=== PATIENT | female | born 1945 | race Caucasian/White ===

== ENCOUNTER → 2018-05-29 12:12 | Outpatient (CLI) | payer MEDICARE, SELFPAY ==
[2018-05-29 13:27] LABS: Free T3, Triiodothyronine Free 2.85 pg/mL (2.77-5.27)
== END ==
PROVIDERS: PCP Internal Medicine; Visit Provider Internal Medicine
DX: E03.9 Hypothyroidism, unspecified (principal)
CPT/HCPCS: 36415; 84481

== ENCOUNTER 2019-02-05 09:34 | Outpatient (CLI) | payer MEDICARE, SELFPAY ==
[2019-02-05] VITALS (8 sets, daily range): BP systolic 100–127; BP diastolic 65–83; PULSE 62–87; RESP 16–18; TEMP 36.7; O2SAT 94–97
--- NOTE | 2019-02-05 09:36 | DI.RAD.S_ITS ---
PROCEDURE: PAIN C/T TRANFORAMINAL INJECT INDICATIONS: SPINAL STENOSIS FINDINGS: 4 intraoperative fluoroscopic spot filming was performed to verify placement of spinal needles at the left C6-C7 level(s), as labeled on the films. Appropriate location(s) of the needle tip(s) was confirmed by injection of iodinated contrast. IMPRESSION: Fluoroscopy support for pain management. Dictated by: Yen Hood M.D. on 02/05/2019 at 11:45 Approved by: Yen Hood M.D. on 02/05/2019 at 11:46
[2019-02-05] MEDS: fentaNYL 100 MCG/2 ML INJ 50 MCG IV (10:45)
[2019-02-05] MEDS: MIDAZOLAM 5 MG/5 ML VIAL IV (10:45)
[2019-02-05] MEDS: IOPAMIDOL 15 ML VIAL 3 ML INJ (10:59)
[2019-02-05] MEDS: DEXAMETHASONE 10 MG/ML VIAL 30 MG INJ (11:00)
[2019-02-05] MEDS: LIDOCAINE 1% 20 ML INJ 5 ML INJ (11:00)
--- NOTE | 2019-02-05 11:03 | PC.NURSE ---
Pt tolerated procedure well. Able to get off table with standby assist. Transferred pt via wheelchair awake and alert to pre procedure room for continued monitoring with Lety SCHAFFER.
--- NOTE | 2019-02-05 11:07 | PM.PROC.1 ---
Procedures Date/Time Date of procedure: 02/05/19 Time of procedure: 11:07 General Procedure description: PREOP DIAGNOSIS 1. CERVICAL STENOSIS, 2. CERVICAL HNP WITH UPPER EXTREMITY RADICULAR FEATURES, POST OP DIAGNOSIS 1. CERVICAL STENOSIS, 2. CERVICAL HNP WITH UPPER EXTREMITY RADICULAR FEATURES, PROCEDURES 1. FLUORSCOPICALLY GUIDED CONTRAST CONTROLLED INTERLAMINAR EPIDURAL STEROID INJECTION - C6/7 TL ANNE PHYSICIAN: DO MOE Osuna Blanca is referred by Ankit for treatment of Cervical HNPs with Left Upper Extremity Paresthesias. FINDINGS Cervical Stenosis due to disc deterioration and nerve root irritation and nerve root irritation DESCRIPTION OF PROCEDURE Fluoroscopically guided, contrast-controlled C6/7 translaminar epidural steroid injection with conscious sedation. Following review of allergy and review of potential side effects and complications, including, but not necessarily limited to, infection, allergic reaction, local tissue breakdown, temporary as well as permanent nerve injury, stroke, paralysis, and possible , the patient indicated that patient understood and agreed to proceed. An informed consent document was signed by the patient, witnessed by a nurse, and placed in the patient's chart. Additionally, other treatment options including modalities, medications, and physical therapy were reviewed with the patient. After review of previous anaesthesic history and IV conscious sedation the patient was deemed safe to proceed with todays procedure with IV conscious sedation as ASA class II designation. Safety time-out was performed to confirm patient ID, procedure to be performed and site of procedure. IV sedation was accomplished with a combination of 3mg of Versed and 50mcg of Fentanyl administered by the RN after DO order, titrated to patient comfort during the course of the procedure while the patient remained responsive to all verbal commands. In the prone position, following sterile prep and drape of the cervical region, the C6/7 translaminar space was identified fluoroscopically. The skin was anesthetized via a 25-gauge 1.5-inch needle with 1% lidocaine solution. At this point, a 25-gauge, 2.5-inch short bevel spinal needle was atraumatically introduced and advanced under fluoroscopic guidance into epidural space at the C6/7 translaminar space. Depth was confirmed on lateral view. Radiological data, including multiple fluoroscopic views of the cervical spine, reveal a spinal needle at the C6/7 translaminar space. Lateral views then show placement of the needle in the epidural space. Subsequent views show contrast material flowing superiorly and inferiorly in the epidural space. DSA fluoroscopy with live contrast injection, once again, confirmed no vascular or intrathecal uptake. At this point, using loss of resistance technique with saline and air, the epidural space was entered. Following negative aspiration, injection of approximately 1.5 cc of Isovue-200 with live fluoroscopy in the AP view confirmed epidural flow in the epidural space without vascular or intrathecal uptake observed. Subsequently, a test dose of 1 cc of 1% lidocaine solution was injected and patient was observed for two minutes without signs or symptoms of complications, including abdominal pain, shortness of breath, bilateral upper or lower extremity weakness, nausea and vomiting, prior to steroid injection. At this point, 3cc or 30mg of dexamethasone was then injected without incident. The patient tolerated the procedure well without signs or symptoms of complications prior to being transferred to the recovery area for further monitoring, The patient was then transferred to the recovery area where they were observed for an appropriate period of time after the injection. The patient reported a VAS score of 6 prior to the procedure and a post-procedure VAS of 0. Total Fluoroscopy Time: 37.0 seconds Total Conscious Time: 24min POST OP INSTRUCTIONS The patient was provided a Pain Log to continue to record their response to the target-specific procedure prior to follow-up visit with the referring provider. Additionally, specific post-injection care instructions and a contact number to our office were provided if concerns arise regarding possible complications associated with the procedure are suspected. Zacarias Corado DO Complications: none
== END 2019-02-05 12:02 | disposition home or self-care (01) ==
LOC: RAD 09:35
PROVIDERS: PCP Internal Medicine; Visit Provider Physical Medicine & Rehabilitation
DX: M48.02 Spinal stenosis, cervical region (principal); M50.123 Cervical disc disorder at C6-C7 level with radiculopathy; R20.2 Paresthesia of skin
CPT/HCPCS: 64479; 99152; J1100; J2250; J3010

== ENCOUNTER 2019-05-28 09:39 | Inpatient (IN) | payer MEDICARE, SELFPAY ==
[2019-05-28] VITALS (14 sets, daily range): BP systolic 101–134; BP diastolic 45–72; PULSE 81–104; RESP 14–20; TEMP 36.6–37.6; O2SAT 88–96; BMI 33.3
--- NOTE | 2019-05-28 10:21 | ED_ITS ---
HPI - Abdominal Pain General Chief Complaint: Abdominal Pain Stated Complaint: think she has Appendicitis Time Seen by Provider: 05/28/19 09:43 Source: patient Mode of arrival: Ambulatory Limitations: no limitations History of Present Illness HPI narrative: Patient comes emergency department complaining of right-sided abdominal pain for the last 3 days. She also complains nausea and vomiting. Patient states she has not had much of an appetite. She states that she initially had pain in her left shoulder, but now, she feels in her right lower quadrant. She denies any dysuria or hematuria. No back pain. no diarrhea or constipation. Patient states she is otherwise healthy as far she knows, though she does take medications for hypertension, chronic back pain, and depression. Patient states she had a fever at home of 101, though she was afebrile here. No other complaints at this time. Related Data Home Medications Medication Instructions Recorded Confirmed levothyroxine 25 mcg tablet 25 mcg PO DAILY 07/22/18 05/28/19 amlodipine 5 mg tablet 5 mg PO DAILY #90 tab 03/24/19 05/28/19 duloxetine 60 mg capsule,delayed 60 mg PO DAILY cap 03/24/19 05/28/19 release furosemide 40 mg tablet 40 mg PO DAILY #90 tab 03/24/19 05/28/19 simvastatin 20 mg tablet 20 mg PO BEDTIME #90 tab 03/24/19 05/28/19 gabapentin 300 mg capsule 600 mg PO BEDTIME cap 05/22/19 05/28/19 amitriptyline 50 mg PO BEDTIME 05/28/19 05/28/19 temazepam 15 mg PO BEDTIME PRN 05/28/19 05/28/19 Allergies Allergy/AdvReac Type Severity Reaction Status Date / Time sumatriptan [From IMITREX] Allergy Severe FACIAL Verified 05/22/19 15:45 SWELLING, RASH propoxyphene [From DARVON] Allergy Intermediate NOT ABLE Verified 05/22/19 15:45 TO MOVE WELL AND FUNCTION codeine [CODEINE] AdvReac Mild NAUSEA Verified 05/22/19 15:45 oxycodone [OXYCODONE] AdvReac Mild NAUSEA Verified 05/22/19 15:45 sertraline [SERTRALINE] AdvReac Mild Verified 05/22/19 15:45 Review of Systems Constitutional Constitutional: Denies chills, Denies fatigue, Denies fever(s), Denies frequent falls, Denies lethargy and Denies weakness Eyes Eyes: Denies change in vision, Denies eye discharge, Denies irritation and Denies loss of vision ENT Ears, Nose, Mouth, and Throat: Denies change in voice, Denies dizziness, Denies neck pain, Denies sore throat and Denies throat swelling Cardiovascular Cardiovascular: Denies chest pain, Denies irregular heart rhythm, Denies lightheadedness, Denies palpitations, Denies dyspnea, Denies dyspnea on exertion and Denies orthopnea Respiratory Respiratory: Denies cough, Denies dyspnea, Denies dyspnea on exertion and Denies wheezing Gastrointestinal Gastrointestinal: Reports abdominal pain, Denies change in bowel habits, Denies diarrhea, Reports nausea and Reports vomiting Comments: Decreased appetite Genitourinary Genitourinary: Denies hematuria, Denies flank pain, Denies urinary incontinence and Denies urinary urgency Musculoskeletal Musculoskeletal: Denies back pain, Denies muscle weakness, Denies neck pain, Denies numbness and Denies tingling Integumentary/Breasts Skin/Breast: Denies pruritus, Denies erythema, Denies rash and Denies wounds Neurologic Neurologic: Denies behavioral changes, Denies confusion, Denies dizziness, Denies frequent falls, Denies loss of vision, Denies numbness, Denies tingling and Denies weakness Psychiatric Psychiatric: Denies anxiety, Denies behavioral changes, Denies confusion, Denies depression, Denies homicidal ideation and Denies suicidal ideation Endocrine Endocrine: Denies fatigue, Denies flushing and Denies palpitations Hematologic/Lymphatic Hematologic/Lymphatic: Denies easy bruising Allergic/Immunologic Allergic/Immunologic: Denies urticaria, Denies throat swelling and Denies wheezi ng Patient History Medical History Back pain (Acute) Cervical pain (neck) (Acute) Eating disorder (Chronic) Elevated liver enzymes (Acute) Post-traumatic stress disorder, chronic (Acute) Sciatica associated with disorder of lumbar spine (Acute) Surgical History Previous back surgery (Acute) Status post hysterectomy Social History Smoking Status: Never smoker Social History household members: spouse Smoking Status: Never smoker alcohol intake: former alcohol intake frequency: 0-2 drinks per day Substance Use Type: does not use Exam Initial Vital Signs Initial Vital Signs: Vital Signs Temperature 98 F 05/28/19 09:49 Pulse Rate 97 H 05/28/19 09:49 Respiratory Rate 17 05/28/19 09:49 Blood Pressure 132/70 05/28/19 09:49 Pulse Oximetry 93 05/28/19 09:49 Const General: cooperative and well developed Nutritional Appearance: well nourished Orientation: alert, awake, oriented x3 and not confused [facility] Head: normocephalic and atraumatic Ears: external ears normal and TM's normal bilaterally Nose: external nose normal and No nasal discharge Face and sinus: sinuses nontender, face symmetric, no sinus tenderness and No dry mucous membranes Mouth: oral mucosae normal and moist mucous membranes Teeth and gingiva: dentition normal Throat: tonsils normal and uvula midline Eyes General: appearance normal, both eyes and all related structures Eyelids: eyelids normal Conjunctivae: conjunctivae normal Sclera: sclerae normal Pupils: PERRL EOM: EOM intact bilaterally Neck Neck: normal visual inspection, trachea midline, No lymphadenopathy, No midline deformity and No JVD Lymphatic: No lymphedema Chest Chest: normal inspection of the chest Resp Effort & Inspection: normal respiratory effort, able to speak in complete sentences, no respiratory distress and no use of accessory muscles Auscultation: clear to auscultation bilaterally, no rales, no rhonchi and no wheezes Cardio Rate: regular rate Rhythm: regular rhythm Heart Sounds: no click, no gallops, no murmurs and no rubs Pulses: normal peripheral pulses GI Inspection: non-distended Palpation: soft, no hepatosplenomegaly, No guarding, No pulsatile mass and tender (Moderate, right upper quadrant and epigastrium. No RLQ tenderness.) Back/Spine/Pelvis Back: No CVA tenderness Cervical Spine: cervical ROM normal and No pain with cervical ROM Thoracic/Lumbar Spine: thoracic and lumbar spine normal to inspection Skin General: no rashes or lesions noted, No jaundice and No petechiae Neuro General: alert, oriented x3, gait normal and no focal motor deficits Speech: speech normal Extrem General: full ROM, no clubbing, cyanosis or edema, no pedal edema and no calf tenderness Psych Appearance: well kempt Mental Status: mental status grossly normal Attitude: cooperative Thought Content: normal and suicidality Judgment: judgment good Course Course Course Narrative: Patient was treated with IV fluids, Zofran, and Toradol, and worked up with CBC, UA and CMP initially. White blood cell count was found to be significantly elevated at 24.7, and patient was sent for CT scan of the abdomen and pelvis. This showed gallbladder wall thickening, stranding and cholelithiasis. I spoke with Dr. Ramos, who agreed to admit the patient to his service. Patient was started on Zosyn in the emergency department. She was allowed to drink clear liquids, as Dr. Ramos stated he would not be taking her to the operating room tonight. Orders Ordered: ED Orders 05/28/19 10:25 Complete Blood Count AUTO DIFF Stat Comprehensive Metabolic Panel Stat Lipase Stat Prothrombin Time INR Stat 05/28/19 11:37 Urine Culture Stat Urine Microscopic Stat 05/28/19 12:43 CT abdomen pelvis w con Stat Stored In Pharmacy 1 each PO PRN PRN PRN Reason: PROTOCOL Discontinued Medications Piperacillin/Tazobactam/Dextrose (Zosyn) 3.375 gm in 50 mls @ 100 mls/hr IV NOW ONE Stop: 05/28/19 13:55 Last Infusion: 05/28/19 14:59 Dose: 0 mls/hr Documented by: Admin: 05/28/19 13:59 Dose: 100 mls/hr Documented by: TREY Ondansetron HCl (Zofran) 4 mg IV NOW ONE Stop: 05/28/19 09:46 Last Admin: 05/28/19 11:12 Dose: 4 mg Documented by: SYEDA Vital Signs Vital signs: Vital Signs - 8 hr 05/28/19 10:46 05/28/19 11:05 05/28/19 12:16 Pulse Rate 88 90 Respiratory Rate 17 Blood Pressure [Right Arm] 125/60 134/71 Pulse Oximetry 92 93 94 05/28/19 12:55 05/28/19 13:00 05/28/19 14:14 Pulse Rate 92 H 81 92 H Respiratory Rate 14 Blood Pressure [Right Arm] 104/72 106/45 L 101/69 Pulse Oximetry 94 95 94 05/28/19 15:00 05/28/19 16:00 05/28/19 17:00 Pulse Rate 94 H 90 91 H Respiratory Rate 18 16 17 Blood Pressure [Right Arm] 112/72 118/62 117/66 Pulse Oximetry 95 94 96 05/28/19 17:40 Pulse Rate 88 Respiratory Rate 16 Blood Pressure [Right Arm] 120/70 Pulse Oximetry 95 MDM - Abdominal Pain Medical Records Attestation: I reviewed the patient's medical records. Lab Data Attestation: I reviewed the patient's lab results. Result diagrams: 05/28/19 10:25 05/28/19 10:25 Labs: Lab Results 05/28/19 05/28/19 05/28/19 Range/Units 10:25 10:25 10:25 WBC 24.7 H (4.5-11.0) X10^3/uL RBC 4.55 (4.0-5.2) X10^6/uL Hgb 13.9 (12.0-16.0) g/dL Hct 41.6 (36-46) % MCV 91.4 (80-100) fL MCH 30.6 (26-34) PG MCHC 33.4 (30-36) % RDW 13.7 (11.6-14.8) % Plt Count 235 (150-400) X10^3/uL Neut % (Auto) Not Reportable Lymph % (Auto) Not Reportable [place] % (Auto) Not Reportable Eos % (Auto) Not Reportable Baso % (Auto) Not Reportable Lymph # (Auto) Not Reportable [place]win # (Auto) Not Reportable Baso # (Auto) Not Reportable Total Counted 100 Seg Neutrophils % 83.0 H (38-70) % Band Neutrophils % 4.0 (3-7) % Lymphocytes % (Manual) 5.0 L (25-45) % Monocytes % (Manual) 8.0 (2-11) % Neutrophils # (Manual) 85347 H (0327-2468) /uL RBC Morphology Normal morphology PT (10.1-12.7) SECONDS INR (0.9-1.3) Sodium 135 L (137-145) mmol/L Potassium 3.5 (3.4-5.1) mmol/L Chloride 98 (98-107) mmol/L Carbon Dioxide 30 (22-32) mmol/L BUN 8 (7-17) mg/dL Creatinine 0.70 (0.52-1.04) mg/dL Estimated GFR > 60.0 (>60) mL/min BUN/Creatinine Ratio 11.4 (6-22) Glucose 112 H (80-110) mg/dL Calcium 9.0 (8.4-10.2) mg/dL Total Bilirubin 1.3 (0.2-1.3) mg/dL AST 21 (14-36) IU/L ALT 16 (9-52) IU/L Alkaline Phosphatase 97 (38-126) U/L Total Protein 7.0 (6.3-8.2) g/dL Albumin 4.0 (3.5-5.0) g/dL Globulin 3.0 (1.7-4.1) g/dL Albumin/Globulin Ratio 1.3 (1.0-2.8) Lipase < 10 L (23-300) U/L Urine Color Urine Appearance Urine pH Ur Specific [place] Urine Protein Urine Glucose (UA) Urine Ketones Urine Occult Blood Urine Nitrate Urine Bilirubin Urine Urobilinogen Ur Leukocyte Esterase Urine RBC Urine WBC Ur Squamous Epith Cells Ur Transition Epith Cell Ur Renal Epithelial Cell Calcium Oxalate Crystal Uric Acid Crystals Triple Phos Crystals Other Crystals Amorphous Sediment Urine Bacteria Hyaline Casts Granular Casts RBC Casts WBC Casts Other Casts Urine Mucus Urine Trichomonas Urine Yeast Urine Sperm Ur Culture Indicated? Micro UA Comment 05/28/19 05/28/19 05/28/19 Range/Units 10:25 11:37 11:37 WBC (4.5-11.0) X10^3/uL RBC (4.0-5.2) X10^6/uL Hgb (12.0-16.0) g/dL Hct (36-46) % MCV (80-100) fL MCH (26-34) PG MCHC (30-36) % RDW (11.6-14.8) % Plt Count (150-400) X10^3/uL Neut % (Auto) Lymph % (Auto) [place]win % (Auto) Eos % (Auto) Baso % (Auto) Lymph # (Auto) [place]win # (Auto) Baso # (Auto) Total Counted Seg Neutrophils % (38-70) % Band Neutrophils % (3-7) % Lymphocytes % (Manual) (25-45) % Monocytes % (Manual) (2-11) % Neutrophils # (Manual) (8903-9411) /uL RBC Morphology PT 14.6 H (10.1-12.7) SECONDS INR 1.3 (0.9-1.3) Sodium (137-145) mmol/L Potassium (3.4-5.1) mmol/L Chloride (98-107) mmol/L Carbon Dioxide (22-32) mmol/L BUN (7-17) mg/dL Creatinine (0.52-1.04) mg/dL Estimated GFR (>60) mL/min BUN/Creatinine Ratio (6-22) Glucose (80-110) mg/dL Calcium (8.4-10.2) mg/dL Total Bilirubin (0.2-1.3) mg/dL AST (14-36) IU/L ALT (9-52) IU/L Alkaline Phosphatase (38-126) U/L Total Protein (6.3-8.2) g/dL Albumin (3.5-5.0) g/dL Globulin (1.7-4.1) g/dL Albumin/Globulin Ratio (1.0-2.8) Lipase (23-300) U/L Urine Color Cancelled Urine Appearance Cancelled Urine pH Cancelled Ur Specific [place] Cancelled Urine Protein Cancelled Urine Glucose (UA) Cancelled Urine Ketones Cancelled Urine Occult Blood Cancelled Urine Nitrate Cancelled Urine Bilirubin Cancelled Urine Urobilinogen Cancelled Ur Leukocyte Esterase Cancelled Urine RBC Cancelled None seen Urine WBC Cancelled 30-100/hpf H Ur Squamous Epith Cells Cancelled 1-5 /hpf Ur Transition Epith Cell Cancelled 0-1/hpf Ur Renal Epithelial Cell Cancelled Calcium Oxalate Crystal Cancelled Uric Acid Crystals Cancelled Triple Phos Crystals Cancelled Other Crystals Cancelled Amorphous Sediment Cancelled Urine Bacteria Cancelled Few (2-10) H Hyaline Casts Cancelled Granular Casts Cancelled RBC Casts Cancelled WBC Casts Cancelled Other Casts Cancelled Urine Mucus Cancelled 2+ H Urine Trichomonas Cancelled Urine Yeast Cancelled Urine Sperm Cancelled Ur Culture Indicated? Cancelled Specimen cultured Micro UA Comment Cancelled Point of care testing: Urine Dip Bedside Urine Glucose Negative Bedside Urine Bilirubin - Negative Bedside Urine Ketone ++ 40 Urine Specific [place] 1.015 Bedside Urine Occult Blood - Negative Bedside Urine pH 6.0 Bedside Urine Protein +/- 15 Bedside Urine Urobilinogen +/- 1mg Bedside Urine Nitrite - Negative Bedside Urine Leukocytes +++ [address] scan - abdomen: Radiologist's impression: PROCEDURE: CT ABDOMEN PELVIS W CON INDICATIONS: R abd pain TECHNIQUE: After the administration of intravenous contrast, 5 mm thick sections acquired from the diaphragm to the symphysis. 5 mm coronal and sagittal reformats were acquired. For radiation dose reduction, the following was used: automated exposure control, adjustment of mA and/or kV according to patient size. COMPARISON: [facility], MR, MR LUMBAR SPINE WITHOUT CONTRAST, 09/19/2017, 13:05. [facility], CT, KIDNEY/ URETER/BLADDER, 05/26/2017, 20:26. [facility], MR, ABDOMEN WITHOUT CONTRAST, 01/11/2016, 11:41. [facility], CT, CHEST/ABD/PEL WITH CONTRAST, 01/10/2016, 13:00. [facility], [place], HEPATOBILIARY SCAN WITH NO EF, 01/10/2016, 10:08. FINDINGS: Image quality: Excellent. ABDOMEN: Lung bases: Bibasilar pulmonary opacities most consistent with atelectasis. Solid organs: There is diffuse hepatic hypoattenuation consistent with hepatic steatosis. Small punctate hypoattenuating foci within the right hepatic lobe are too small to fully characterize on this exam, but are most consistent with small hepatic cysts or hemangiomas. The gallbladder is enlarged and fluid-filled with layering cholelithiasis noted. There are findings suspicious for a possible 5 mm gallstone at the gallbladder neck on axial image 26 of series 2. There is severe diffuse surrounding inflammatory fat stranding surrounding the gallbladder and extending to the inferior tip of the right hepatic lobe, the adjacent duodenum, and the adjacent transverse colon. There are enlarged lisa hepatis lymph nodes. No free intraperitoneal air to suggest perforation is identified. No well formed drainable abscess/fluid collection is present. There is diffuse fatty infiltration of the pancreas. Spleen and bilateral adrenal glands appear unremarkable. No hydronephrosis noted. There are punctate bilateral nonobstructing nephroliths. Peritoneum and bowel: There is short segment wall thickening of the transverse colon at the hepatic flexure adjacent the pericholecystic inflammatory fat stranding described above (best seen on axial image 38 of series 2). The appendix is not identified on this exam, but there are no pericecal or right lower quadrant inflammatory findings to suggest acute appendicitis. Nodes and vessels: There is mild calcified plaque of the abdominal aorta and branch vessels. The abdominal aorta is nondilated. Miscellaneous: There is a small fat-containing umbilical hernia. PELVIS: Genitourinary: Bladder wall thickness is normal. Miscellaneous: There is small volume free fluid within the pelvis, which appears within physiologic limits. The uterus is absent. Bones: No suspicious bony lesions. No vertebral body compression fractures. There are mild to moderate multilevel degenerative changes of the imaged thoracolumbar spine, worst in the lower lumbar region from L4-S1 with prominent facet arthropathy. IMPRESSION: 1. Findings consistent with acute cholecystitis with soft tissue inflammation extending to surround the adjacent duodenum, inferior tip of the right hepatic lobe, and adjacent transverse colon. Cholelithiasis is identified and findings are suspicious for a possible 5 mm gallstone at the gallbladder neck. No abscess or findings of perforation identified. Adjacent lymphadenopathy is likely reactive. 2. Short segment wall thickening of the transverse colon at the hepatic flexure is likely reactive to the adjacent inflammation described above, but a followup CT or colonoscopy after symptoms resolve is recommended to exclude a colonic mass. 3. Punctate nonobstructing nephrolithiasis. Findings discussed with referring provider Dr. Kiya Mcmanus by telephone by Dr. Martinez at 1:20 PM on 05/28/19. Dictated by: Chuy Martinez M.D. on 05/28/2019 at 13:06 Approved by: Chuy Martinez M.D. on 05/28/2019 at 13:31 Discharge Plan Departure Patient Disposition: Admitted As Inpatient Clinical Impression: Cholecystitis Discharge Date/Time: 05/28/19 17:40 Admit Date/Time: 05/28/19 17:50 Admit Provider: Mahamed Ramos
[2019-05-28 10:41] LABS: Add Manual Diff / Slide Review YES; Hematocrit 41.6 % (36-46); Hemoglobin 13.9 g/dL (12.0-16.0); Mean Corpuscular HGB Conc 33.4 % (30-36); Mean Corpuscular Hemoglobin 30.6 PG (26-34); Mean Corpuscular Volume 91.4 fL (80-100); Platelet Count 235 X10^3/uL (150-400); Red Blood Cell Count 4.55 X10^6/uL (4.0-5.2); Red Cell Distribution Width 13.7 % (11.6-14.8); White Blood Cell Count 24.7 X10^3/uL (4.5-11.0)
[2019-05-28 10:51] LABS: Alanine Aminotransferase 16 IU/L (9-52); Albumin Globulin Ratio 1.3 (1.0-2.8); Alkaline Phosphatase 97 U/L (38-126); Aspartate Aminotransferase 21 IU/L (14-36); BUN Creatinine Ratio 11.4 (6-22); Bilirubin Total 1.3 mg/dL (0.2-1.3); Blood Urea Nitrogen 8 mg/dL (7-17); Carbon Dioxide 30 mmol/L (22-32); Chloride 98 mmol/L (98-107); Estimated Glomerular Filt Rate > 60.0 mL/min (>60); Glucose 112 mg/dL (80-110); HEMOLYSIS 19 (0-50); Lipase < 10 U/L (23-300); Potassium 3.5 mmol/L (3.4-5.1); Sodium 135 mmol/L (137-145)
[2019-05-28 11:00] LABS: Neutrophils Absolute Manual 21489 /uL (3000-5900); RBC Morphology Normal Morphology; Total Cells Counted 100
[2019-05-28] MEDS: ONDANSETRON 4 MG/2 ML INJ IV (11:12)
[2019-05-28 11:53] LABS: RBC Urine None Seen (0-5/HPF)
[2019-05-28 12:07] LABS: Bacteria Urine Few (2-10); Culture Indicated Urine Specimen Cultured; Mucus Urine 2+ (Negative); Squamous Epithelial Cell Urine 1-5 /HPF (0-5/HPF); Transitional Epi Cells Urine 0-1/HPF (0-5/HPF); WBC Urine 30-100/HPF (0-5/HPF)
--- NOTE | 2019-05-28 12:43 | DI.CT.S_ITS ---
PROCEDURE: CT ABDOMEN PELVIS W CON INDICATIONS: R abd pain TECHNIQUE: After the administration of intravenous contrast, 5 mm thick sections acquired from the diaphragm to the symphysis. 5 mm coronal and sagittal reformats were acquired. For radiation dose reduction, the following was used: automated exposure control, adjustment of mA and/or kV according to patient size. COMPARISON: [facility], MR, MR LUMBAR SPINE WITHOUT CONTRAST, 09/19/2017, 13:05. [facility], CT, KIDNEY/ URETER/BLADDER, 05/26/2017, 20:26. [facility], MR, ABDOMEN WITHOUT CONTRAST, 01/11/2016, 11:41. [facility], CT, CHEST/ABD/PEL WITH CONTRAST, 01/10/2016, 13:00. [facility], [place], HEPATOBILIARY SCAN WITH NO EF, 01/10/2016, 10:08. FINDINGS: Image quality: Excellent. ABDOMEN: Lung bases: Bibasilar pulmonary opacities most consistent with atelectasis. Solid organs: There is diffuse hepatic hypoattenuation consistent with hepatic steatosis. Small punctate hypoattenuating foci within the right hepatic lobe are too small to fully characterize on this exam, but are most consistent with small hepatic cysts or hemangiomas. The gallbladder is enlarged and fluid-filled with layering cholelithiasis noted. There are findings suspicious for a possible 5 mm gallstone at the gallbladder neck on axial image 26 of series 2. There is severe diffuse surrounding inflammatory fat stranding surrounding the gallbladder and extending to the inferior tip of the right hepatic lobe, the adjacent duodenum, and the adjacent transverse colon. There are enlarged lisa hepatis lymph nodes. No free intraperitoneal air to suggest perforation is identified. No well formed drainable abscess/fluid collection is present. There is diffuse fatty infiltration of the pancreas. Spleen and bilateral adrenal glands appear unremarkable. No hydronephrosis noted. There are punctate bilateral nonobstructing nephroliths. Peritoneum and bowel: There is short segment wall thickening of the transverse colon at the hepatic flexure adjacent the pericholecystic inflammatory fat stranding described above (best seen on axial image 38 of series 2). The appendix is not identified on this exam, but there are no pericecal or right lower quadrant inflammatory findings to suggest acute appendicitis. Nodes and vessels: There is mild calcified plaque of the abdominal aorta and branch vessels. The abdominal aorta is nondilated. Miscellaneous: There is a small fat-containing umbilical hernia. PELVIS: Genitourinary: Bladder wall thickness is normal. Miscellaneous: There is small volume free fluid within the pelvis, which appears within physiologic limits. The uterus is absent. Bones: No suspicious bony lesions. No vertebral body compression fractures. There are mild to moderate multilevel degenerative changes of the imaged thoracolumbar spine, worst in the lower lumbar region from L4-S1 with prominent facet arthropathy. IMPRESSION: 1. Findings consistent with acute cholecystitis with soft tissue inflammation extending to surround the adjacent duodenum, inferior tip of the right hepatic lobe, and adjacent transverse colon. Cholelithiasis is identified and findings are suspicious for a possible 5 mm gallstone at the gallbladder neck. No abscess or findings of perforation identified. Adjacent lymphadenopathy is likely reactive. 2. Short segment wall thickening of the transverse colon at the hepatic flexure is likely reactive to the adjacent inflammation described above, but a followup CT or colonoscopy after symptoms resolve is recommended to exclude a colonic mass. 3. Punctate nonobstructing nephrolithiasis. Findings discussed with referring provider Dr. Kiya Mcmanus by telephone by Dr. Martinez at 1:20 PM on 05/28/19. Dictated by: Chuy Martinez M.D. on 05/28/2019 at 13:06 Approved by: Chuy Martinez M.D. on 05/28/2019 at 13:31
[2019-05-28 13:35] LABS: INR 1.3 (0.9-1.3); Prothrombin Time 14.6 SECONDS (10.1-12.7)
[2019-05-28] MEDS: PIPERACILLIN-TAZO 3.375 GM/50 ML FROZ.PIGGY IV ×2 (13:59→19:24)
--- NOTE | 2019-05-28 14:06 | PC.NURSE ---
provided oral refresher for care/lip care.
--- NOTE | 2019-05-28 18:23 | PC.ADMIT ---
[email or web address] Admission Note: The patient,Blanca Stockton,74 y/o, was given written information regarding hospital policies, unit procedures and contact persons. Patient's smoking status: Never smoker. Vital Signs - 8 hr 05/28/19 10:46 05/28/19 11:05 05/28/19 12:16 Pulse Rate 88 90 Respiratory Rate 17 Blood Pressure [Right Arm] 125/60 134/71 Pulse Oximetry 92 93 94 05/28/19 12:55 05/28/19 13:00 05/28/19 14:14 Pulse Rate 92 H 81 92 H Respiratory Rate 14 Blood Pressure [Right Arm] 104/72 106/45 L 101/69 Pulse Oximetry 94 95 94 05/28/19 15:00 05/28/19 16:00 05/28/19 17:00 Pulse Rate 94 H 90 91 H Respiratory Rate 18 16 17 Blood Pressure [Right Arm] 112/72 118/62 117/66 Pulse Oximetry 95 94 96 05/28/19 17:40 Pulse Rate 88 Respiratory Rate 16 Blood Pressure [Right Arm] 120/70 Pulse Oximetry 95 Patient up from ED via wheelchair. Patient awake and alert, calm and cooperative. No orders yet from the doctor. Patient able to ambulate to ac bed, gait steady. Bed alarm on d/t hx falls.
[2019-05-28] MEDS: OXYCODONE IR 5 MG TABLET PO (19:24)
--- NOTE | 2019-05-28 19:58 | P.HP_ITS ---
History of Present Illness History of Present Illness Date Patient Seen: 05/28/19 Time Patient Seen: 20:12 Chief complaint: think she has Appendicitis Narrative: 74-year-old female history of biliary colic presents with right upper quadrant pain and vomiting for the past 3 days. She presented to the emergency room with normal vital signs no fever and had a CT scan of the abdomen pelvis. CT demonstrates gallbladder wall thickening, stones, pericholecystic fluid, stranding around the duodenum and a normal common bile duct. WBC 25, Cr 0.7, TB 1.3, normal lipase. She has never had a previous episode of acute cholecystitis. Medical history is significant for obesity chronic pain and cervical fusion within the past 1 month. She is a nonsmoker has no major cardiac or pulmonary disease, she has normal functional status, she is not on anticoagulation. Patient History Medical History Back pain (Acute) Cervical pain (neck) (Acute) Eating disorder (Chronic) Elevated liver enzymes (Acute) Post-traumatic stress disorder, chronic (Acute) Sciatica associated with disorder of lumbar spine (Acute) Surgical History Previous back surgery (Acute) Status post hysterectomy Social History household members: spouse Smoking Status: Never smoker alcohol intake: former Family & Social History Social History: household members spouse Prior Living Arrangements House Safety & Behavioral: Feels Safe in Current Yes Environment Been Physically Hurt or No Threatened By a Person Suicidal Ideation Description None Suicide Plan Description No Plan Tobacco & Substance use: Smoking Status Never smoker alcohol intake former alcohol intake frequency 0-2 drinks per day Substance Use Type does not use Meds Home Medications and Allergies Home Medications Medication Instructions Recorded Confirmed Type levothyroxine 25 mcg tablet 25 mcg PO DAILY 07/22/18 05/28/19 History amlodipine 5 mg tablet 5 mg PO DAILY #90 tab 03/24/19 05/28/19 History duloxetine 60 mg capsule,delayed 60 mg PO DAILY cap 03/24/19 05/28/19 History release furosemide 40 mg tablet 40 mg PO DAILY #90 tab 03/24/19 05/28/19 History simvastatin 20 mg tablet 20 mg PO BEDTIME #90 tab 03/24/19 05/28/19 History gabapentin 300 mg capsule 600 mg PO BEDTIME cap 05/22/19 05/28/19 History amitriptyline 50 mg PO BEDTIME 05/28/19 05/28/19 History temazepam 15 mg PO BEDTIME PRN 05/28/19 05/28/19 History Allergies Allergy/AdvReac Type Severity Reaction Status Date / Time sumatriptan [From IMITREX] Allergy Severe FACIAL Verified 05/22/19 15:45 SWELLING, RASH propoxyphene [From DARVON] Allergy Intermediate NOT ABLE Verified 05/22/19 15:45 TO MOVE WELL AND FUNCTION codeine [CODEINE] AdvReac Mild NAUSEA Verified 05/22/19 15:45 oxycodone [OXYCODONE] AdvReac Mild NAUSEA Verified 05/22/19 15:45 sertraline [SERTRALINE] AdvReac Mild Verified 05/22/19 15:45 Review of Systems Review of Systems Narrative: A complete review of systems is negative except as noted in the HPI Exam Vital Signs (past 8 hours): - 05/28/19 12:16 05/28/19 12:55 05/28/19 13:00 Temperature Pulse Rate 92 H 81 Respiratory Rate 14 Blood Pressure Blood Pressure [Right Arm] 104/72 106/45 L Pulse Oximetry 94 94 95 05/28/19 14:14 05/28/19 15:00 05/28/19 16:00 Temperature Pulse Rate 92 H 94 H 90 Respiratory Rate 18 16 Blood Pressure Blood Pressure [Right Arm] 101/69 112/72 118/62 Pulse Oximetry 94 95 94 05/28/19 17:00 05/28/19 17:40 05/28/19 18:15 Temperature 99.4 F Pulse Rate 91 H 88 92 H Respiratory Rate 17 16 18 Blood Pressure 122/63 Blood Pressure [Right Arm] 117/66 120/70 Pulse Oximetry 96 95 Oxygen Delivery Method Room Air Oxygen Flow Rate 2 Narrative Exam Narrative: General-no acute distress, well nourished HEENT-moist mucous membranes, no scleral icterus Neck-supple, no lymphadenopathy Chest- non labored respirations, clear to auscultation bilaterally Cardiac-regular rate no peripheral edema Abdomen- +Thomas's sign, no generalized peritonitis Extremities-warm, well perfused Neurological-alert and oriented, no focal deficits Objective Labs Result Diagrams: 05/28/19 10:25 05/28/19 10:25 Labs: Laboratory Results - last 24 hr 05/28/19 05/28/19 05/28/19 10:25 10:25 10:25 WBC 24.7 H RBC 4.55 Hgb 13.9 Hct 41.6 MCV 91.4 MCH 30.6 MCHC 33.4 RDW 13.7 Plt Count 235 Neut % (Auto) Not Reportable Lymph % (Auto) Not Reportable [place] % (Auto) Not Reportable Eos % (Auto) Not Reportable Baso % (Auto) Not Reportable Lymph # (Auto) Not Reportable [place] # (Auto) Not Reportable Baso # (Auto) Not Reportable Total Counted 100 Seg Neutrophils % 83.0 H Band Neutrophils % 4.0 Lymphocytes % (Manual) 5.0 L Monocytes % (Manual) 8.0 Neutrophils # (Manual) 78528 H RBC Morphology Normal morphology PT INR Sodium 135 L Potassium 3.5 Chloride 98 Carbon Dioxide 30 BUN 8 Creatinine 0.70 Estimated GFR > 60.0 BUN/Creatinine Ratio 11.4 Glucose 112 H Calcium 9.0 Total Bilirubin 1.3 AST 21 ALT 16 Alkaline Phosphatase 97 Total Protein 7.0 Albumin 4.0 Globulin 3.0 Albumin/Globulin Ratio 1.3 Lipase < 10 L Urine Color Urine Appearance Urine pH Ur Specific [place] Urine Protein Urine Glucose (UA) Urine Ketones Urine Occult Blood Urine Nitrate Urine Bilirubin Urine Urobilinogen Ur Leukocyte Esterase Urine RBC Urine WBC Ur Squamous Epith Cells Ur Transition Epith Cell Ur Renal Epithelial Cell Calcium Oxalate Crystal Uric Acid Crystals Triple Phos Crystals Other Crystals Amorphous Sediment Urine Bacteria Hyaline Casts Granular Casts RBC Casts WBC Casts Other Casts Urine Mucus Urine Trichomonas Urine Yeast Urine Sperm Ur Culture Indicated? Micro UA Comment 05/28/19 05/28/19 05/28/19 10:25 11:37 11:37 WBC RBC Hgb Hct MCV MCH MCHC RDW Plt Count Neut % (Auto) Lymph % (Auto) [place] % (Auto) Eos % (Auto) Baso % (Auto) Lymph # (Auto) [place] # (Auto) Baso # (Auto) Total Counted Seg Neutrophils % Band Neutrophils % Lymphocytes % (Manual) Monocytes % (Manual) Neutrophils # (Manual) RBC Morphology PT 14.6 H INR 1.3 Sodium Potassium Chloride Carbon Dioxide BUN Creatinine Estimated GFR BUN/Creatinine Ratio Glucose Calcium Total Bilirubin AST ALT Alkaline Phosphatase Total Protein Albumin Globulin Albumin/Globulin Ratio Lipase Urine Color Cancelled Urine Appearance Cancelled Urine pH Cancelled Ur Specific [place] Cancelled Urine Protein Cancelled Urine Glucose (UA) Cancelled Urine Ketones Cancelled Urine Occult Blood Cancelled Urine Nitrate Cancelled Urine Bilirubin Cancelled Urine Urobilinogen Cancelled Ur Leukocyte Esterase Cancelled Urine RBC Cancelled None seen Urine WBC Cancelled 30-100/hpf H Ur Squamous Epith Cells Cancelled 1-5 /hpf Ur Transition Epith Cell Cancelled 0-1/hpf Ur Renal Epithelial Cell Cancelled Calcium Oxalate Crystal Cancelled Uric Acid Crystals Cancelled Triple Phos Crystals Cancelled Other Crystals Cancelled Amorphous Sediment Cancelled Urine Bacteria Cancelled Few (2-10) H Hyaline Casts Cancelled Granular Casts Cancelled RBC Casts Cancelled WBC Casts Cancelled Other Casts Cancelled Urine Mucus Cancelled 2+ H Urine Trichomonas Cancelled Urine Yeast Cancelled Urine Sperm Cancelled Ur Culture Indicated? Cancelled Specimen cultured Micro UA Comment Cancelled Assessment & Plan Assessment and plan (1) Cholecystitis: Current visit: Yes Status: Acute Assessment & Plan narrative: This is a 74-year-old female with 3 days of acute c holecystitis. On admission she is afebrile hemodynamically stable has positive Thomas sign white blood cell count 25, total bilirubin LFTs otherwise unremarkable. I reviewed her CT abdomen pelvis which demonstrates cholelithiasis, gallbladder wall thickening and stranding around the duodenum. There is no evidence of gallbladder necrosis or perforation. Given the chronicity of her symptoms and the significant inflammation demonstrated by the CT and recommend that she undergo non operative management at this time as she is at increased risk of complication secondary to cholecystectomy. If she fails to improve and or becomes systemically sick she will require gallbladder drainage. If she improves she will be converted to oral antibiotics and plan for interval outpatient cholecystectomy. We discussed the risks of cholecystectomy including bleeding infection damage to surrounding structures need for conversion to open or further procedures. Her questions have been answered and she is in agreement with this plan -Clears -Zosyn -pLovenox for VTE prophylaxis Quality VTE Deep Vein Thrombosis/Pulmonary Embolism Present on Admission: No
[2019-05-28] MEDS: AMITRIPTYLINE 25 MG TABLET 50 MG PO (21:02)
[2019-05-28] MEDS: DEXTROSE 5%-0.9% NS 1,000 ML 100 ML IV (21:04)
[2019-05-28] MEDS: SIMVASTATIN 10 MG TABLET 20 MG PO (21:05)
[2019-05-28] MEDS: GABAPENTIN 600 MG TABLET PO (21:05)
[2019-05-28] MEDS: TEMAZEPAM 15 MG CAPSULE PO (21:19)
--- NOTE | 2019-05-28 21:53 | PC.NURSE ---
Patient has been resting in bed most of the shift. SBA to bathroom, gait steady. C/o abd pain and headache, percolone effective for pain control. Patient has been A&O, calm and cooperative.
[2019-05-29] VITALS (9 sets, daily range): BP systolic 99–122; BP diastolic 51–72; PULSE 78–103; RESP 16–18; TEMP 36.6–37.6; O2SAT 92–95
[2019-05-29] MEDS: PIPERACILLIN-TAZO 3.375 GM/50 ML FROZ.PIGGY IV ×3 (02:49→18:36)
[2019-05-29 05:28] LABS: Add Manual Diff / Slide Review NO; Basophils Absolute Auto 100 /uL (0-100); Basophils Percent Auto 0.3 % (0-2); Eosinophils Absolute Auto 100 /uL (0-450); Eosinophils Percent Auto 0.4 % (2-4); Hematocrit 38.1 % (36-46); Hemoglobin 12.7 g/dL (12.0-16.0); Lymphocytes Absolute Auto 1600 /uL (1100-4500); Lymphocytes Percent Auto 8.5 % (25-40); Mean Corpuscular HGB Conc 33.2 % (30-36); Mean Corpuscular Hemoglobin 30.6 PG (26-34); Monocytes Absolute Auto 1900 /uL (0-900); Monocytes Percent Auto 10.4 % (3-14); Neutrophils Absolute Auto 15000 /uL (1500-7000); Neutrophils Percent Auto 80.4 % (50-75); Platelet Count 189 X10^3/uL (150-400); Red Blood Cell Count 4.14 X10^6/uL (4.0-5.2); Red Cell Distribution Width 13.8 % (11.6-14.8); White Blood Cell Count 18.7 X10^3/uL (4.5-11.0)
[2019-05-29 05:30] LABS: Alanine Aminotransferase 19 IU/L (9-52); Albumin 3.3 g/dL (3.5-5.0); Albumin Globulin Ratio 1.2 (1.0-2.8); Alkaline Phosphatase 89 U/L (38-126); Aspartate Aminotransferase 21 IU/L (14-36); BUN Creatinine Ratio 12.5 (6-22); Bilirubin Total 1.8 mg/dL (0.2-1.3); Blood Urea Nitrogen 10 mg/dL (7-17); Calcium 8.3 mg/dL (8.4-10.2); Carbon Dioxide 27 mmol/L (22-32); Chloride 99 mmol/L (98-107); Estimated Glomerular Filt Rate > 60.0 mL/min (>60); Globulin 2.7 g/dL (1.7-4.1); Glucose 138 mg/dL (80-110); HEMOLYSIS 22 (0-50); Potassium 3.3 mmol/L (3.4-5.1); Sodium 135 mmol/L (137-145)
[2019-05-29 05:31] LABS: Magnesium 2.2 mg/dL (1.6-2.3); Phosphorous 2.9 mg/dL (2.8-4.1)
[2019-05-29] MEDS: ACETAMINOPHEN 325 MG TABLET 650 MG PO ×3 (05:44→18:25)
[2019-05-29] MEDS: LEVOTHYROXINE 25 MCG TABLET PO (05:46)
[2019-05-29] MEDS: DEXTROSE 5%-0.9% NS 1,000 ML 100 ML IV (05:50)
--- NOTE | 2019-05-29 06:16 | PC.NURSE ---
Pt very sleepy and hard to rouse this night. Pt was oriented to self but not situation. Pt had low O2 sats, mouth breathing, snoring. I was not able to get patient to take PO Tylenol or hold a cup at 0000. Respiratory therapy called at 0015, and patient was placed on 3 liters O2 saturation was 93%. Pt voided 100cc at 0600, Pt was bladder scanned and had greater than 500. Pt ambulated to bathroom and was able to void 250cc. Pt has been alert and oriented this morning since 0500. Pt 1 person assist to the bathroom. Pain is low 3/10. VSS, except pt runs tachy 90-101. Pt takes 40mg furosemide every day. Will notify day shift to talk to Dr. Ramos. Pt has SCD's applied, call light within reach.
--- NOTE | 2019-05-29 08:19 | DI.US.S_ITS ---
PROCEDURE: US ABDOMEN LIMITED INDICATIONS: EVAL FOR STONE IN CBD TECHNIQUE: Real-time focused scanning was performed of the abdomen, with image documentation. COMPARISON: [facility], CT, CT ABDOMEN PELVIS W CON, 05/28/2019, 12:21. FINDINGS: Liver measures 15.7 cm in length and is otherwise unremarkable. No focal hepatic lesion however liver is difficult to sonographically visualized due to shadowing bowel gas. Distended gallbladder measures 11.2 cm in length. Gallstones are present. There is wall thickening measuring 7 mm. Pericholecystic fluid a sonographic Thomas sign present. No definite sonographically visible calculus seen within the common bile duct. IMPRESSION: Distended gallbladder, cholelithiasis and additional findings above, again highly suspicious for acute cholecystitis. No definite choledocholithiasis sonographically visualized. Dictated by: Angel Licona M.D. on 05/29/2019 at 12:30 Approved by: Angel Licona M.D. on 05/29/2019 at 12:34
--- NOTE | 2019-05-29 08:53 | P.PN_ITS ---
Subjective Subjective Date Patient Seen: 05/29/19 Time Patient Seen: 08:54 Interval history: Significantly improved abdominal pain in the right upper quadrant over the past 24 hours period. No fever, rigors, nausea, vomiting, tolerating clear liquids. Exam Vital Signs (past 8 hours): - 05/29/19 05:32 05/29/19 08:51 Temperature 99.7 F H 97.8 F Pulse Rate 94 H 87 Respiratory Rate 16 16 Blood Pressure 119/72 102/52 L Pulse Oximetry 94 94 Oxygen Delivery Method Nasal Cannula Oxygen Flow Rate 0 Narrative Exam Narrative: General adult female alert oriented no acute distress Chest nonlabored respirations Abdomen soft mildly tender right upper quadrant significantly improved from yesterday. Objective Labs Result Diagrams: 05/29/19 05:10 05/29/19 05:10 Labs: Laboratory Results - last 24 hr 05/28/19 05/28/19 05/28/19 10:25 10:25 10:25 WBC 24.7 H RBC 4.55 Hgb 13.9 Hct 41.6 MCV 91.4 MCH 30.6 MCHC 33.4 RDW 13.7 Plt Count 235 Neut % (Auto) Not Reportable Lymph % (Auto) Not Reportable [place] % (Auto) Not Reportable Eos % (Auto) Not Reportable Baso % (Auto) Not Reportable Neut # (Auto) Lymph # (Auto) Not Reportable [place] # (Auto) Not Reportable Eos # (Auto) Baso # (Auto) Not Reportable Total Counted 100 Seg Neutrophils % 83.0 H Band Neutrophils % 4.0 Lymphocytes % (Manual) 5.0 L Monocytes % (Manual) 8.0 Neutrophils # (Manual) 41997 H RBC Morphology Normal morphology PT INR Sodium 135 L Potassium 3.5 Chloride 98 Carbon Dioxide 30 BUN 8 Creatinine 0.70 Estimated GFR > 60.0 BUN/Creatinine Ratio 11.4 Glucose 112 H Calcium 9.0 Phosphorus Magnesium Total Bilirubin 1.3 AST 21 ALT 16 Alkaline Phosphatase 97 Total Protein 7.0 Albumin 4.0 Globulin 3.0 Albumin/Globulin Ratio 1.3 Lipase < 10 L Urine Color Urine Appearance Urine pH Ur Specific [place] Urine Protein Urine Glucose (UA) Urine Ketones Urine Occult Blood Urine Nitrate Urine Bilirubin Urine Urobilinogen Ur Leukocyte Esterase Urine RBC Urine WBC Ur Squamous Epith Cells Ur Transition Epith Cell Ur Renal Epithelial Cell Calcium Oxalate Crystal Uric Acid Crystals Triple Phos Crystals Other Crystals Amorphous Sediment Urine Bacteria Hyaline Casts Granular Casts RBC Casts WBC Casts Other Casts Urine Mucus Urine Trichomonas Urine Yeast Urine Sperm Ur Culture Indicated? Micro UA Comment 05/28/19 05/28/19 05/28/19 10:25 11:37 11:37 WBC RBC Hgb Hct MCV MCH MCHC RDW Plt Count Neut % (Auto) Lymph % (Auto) [place] % (Auto) Eos % (Auto) Baso % (Auto) Neut # (Auto) Lymph # (Auto) [place] # (Auto) Eos # (Auto) Baso # (Auto) Total Counted Seg Neutrophils % Band Neutrophils % Lymphocytes % (Manual) Monocytes % (Manual) Neutrophils # (Manual) RBC Morphology PT 14.6 H INR 1.3 Sodium Potassium Chloride Carbon Dioxide BUN Creatinine Estimated GFR BUN/Creatinine Ratio Glucose Calcium Phosphorus Magnesium Total Bilirubin AST ALT Alkaline Phosphatase Total Protein Albumin Globulin Albumin/Globulin Ratio Lipase Urine Color Cancelled Urine Appearance Cancelled Urine pH Cancelled Ur Specific [place] Cancelled Urine Protein Cancelled Urine Glucose (UA) Cancelled Urine Ketones Cancelled Urine Occult Blood Cancelled Urine Nitrate Cancelled Urine Bilirubin Cancelled Urine Urobilinogen Cancelled Ur Leukocyte Esterase Cancelled Urine RBC Cancelled None seen Urine WBC Cancelled 30-100/hpf H Ur Squamous Epith Cells Cancelled 1-5 /hpf Ur Transition Epith Cell Cancelled 0-1/hpf Ur Renal Epithelial Cell Cancelled Calcium Oxalate Crystal Cancelled Uric Acid Crystals Cancelled Triple Phos Crystals Cancelled Other Crystals Cancelled Amorphous Sediment Cancelled Urine Bacteria Cancelled Few (2-10) H Hyaline Casts Cancelled Granular Casts Cancelled RBC Casts Cancelled WBC Casts Cancelled Other Casts Cancelled Urine Mucus Cancelled 2+ H Urine Trichomonas Cancelled Urine Yeast Cancelled Urine Sperm Cancelled Ur Culture Indicated? Cancelled Specimen cultured Micro UA Comment Cancelled 05/29/19 05/29/19 05/29/19 05:10 05:10 05:10 WBC 18.7 H RBC 4.14 Hgb 12.7 Hct 38.1 MCV 92.0 MCH 30.6 MCHC 33.2 RDW 13.8 Plt Count 189 Neut % (Auto) 80.4 H Lymph % (Auto) 8.5 L [place] % (Auto) 10.4 Eos % (Auto) 0.4 L Baso % (Auto) 0.3 Neut # (Auto) 85084 H Lymph # (Auto) 1600 [place] # (Auto) 1900 H Eos # (Auto) 100 Baso # (Auto) 100 Total Counted Seg Neutrophils % Band Neutrophils % Lymphocytes % (Manual) Monocytes % (Manual) Neutrophils # (Manual) RBC Morphology PT INR Sodium 135 L Potassium 3.3 L Chloride 99 Carbon Dioxide 27 BUN 10 Creatinine 0.80 Estimated GFR > 60.0 BUN/Creatinine Ratio 12.5 Glucose 138 H Calcium 8.3 L Phosphorus 2.9 Magnesium 2.2 Total Bilirubin 1.8 H AST 21 ALT 19 Alkaline Phosphatase 89 Total Protein 6.0 L Albumin 3.3 L Globulin 2.7 Albumin/Globulin Ratio 1.2 Lipase Urine Color Urine Appearance Urine pH Ur Specific [place] Urine Protein Urine Glucose (UA) Urine Ketones Urine Occult Blood Urine Nitrate Urine Bilirubin Urine Urobilinogen Ur Leukocyte Esterase Urine RBC Urine WBC Ur Squamous Epith Cells Ur Transition Epith Cell Ur Renal Epithelial Cell Calcium Oxalate Crystal Uric Acid Crystals Triple Phos Crystals Other Crystals Amorphous Sediment Urine Bacteria Hyaline Casts Granular Casts RBC Casts WBC Casts Other Casts Urine Mucus Urine Trichomonas Urine Yeast Urine Sperm Ur Culture Indicated? Micro UA Comment Assessment & Plan Assessment and plan (1) Cholecystitis: Current visit: Yes Status: Acute Assessment & Plan narrative: 74-year-old female with acute cholecystitis symptomatic for 3 days prior to for hospital admission. She is being managed with non operative therapy and responding appropriately. White blood cell count 19 from 24, afebrile abdominal pain improving. Total bilirubin is 1.8 today from 1.3 yesterday, the CT does not demonstrate choledocholithiasis, but there is significant inflammation of the gallbladder and duodenum. -continue clear liquid diet -continue Zosyn -RUQ US today eval for CBD stone Quality VTE Deep Vein Thrombosis/Pulmonary Embolism Present on Admission: No
--- NOTE | 2019-05-29 12:20 | PC.NURSE ---
Addendum entered by Adelina Muir R.N. 05/29/19 13:58: pt states she hasn't slept in a few days b/c of the pain which is why she has been so tired. Once she stayed awake for awhile, pt c/o pain and was medicated with 5mg oxy. Original Note: Day Shift On assessment, pt found to have irregular heart beat by auscultation. pt denies having irregular HR in past. Notified Dr schafer, order for EKG and hospitalist consult if needed. Dr Chan looked at EKG when done, stated it was ok. Pt resting in bed. She is very tired, arrouses easily. Oriented x4. C/o pain in abd of 01/19 but then falls right back asleep. pt on O2 as sats 88% on RA. PIV lost this AM, DAKSHA RN here to insert a new PIV.
[2019-05-29] MEDS: ENOXAPARIN 40 MG/0.4 ML SYRINGE SUBCUT (12:58)
[2019-05-29] MEDS: DULOXETINE 30 MG CAPSULE 60 MG PO (12:58)
[2019-05-29] MEDS: AMLODIPINE 5 MG TABLET PO (12:58)
[2019-05-29] MEDS: OXYCODONE IR 5 MG TABLET PO (14:04)
[2019-05-29] MEDS: POTASSIUM CHLORIDE 20 MEQ TAB 40 MEQ PO (18:25)
[2019-05-29] MEDS: AMITRIPTYLINE 25 MG TABLET 50 MG PO (21:22)
[2019-05-29] MEDS: GABAPENTIN 600 MG TABLET PO (21:24)
[2019-05-29] MEDS: SIMVASTATIN 10 MG TABLET 20 MG PO (21:24)
[2019-05-30] VITALS: O2SAT 94
[2019-05-30 00:10] VITALS: BP 121/57; PULSE 90; RESP 22; TEMP 36.7; O2SAT 92
[2019-05-30] MEDS: ACETAMINOPHEN 325 MG TABLET 650 MG PO ×2 (01:20→05:42)
[2019-05-30] MEDS: DEXTROSE 5%-0.9% NS 1,000 ML 100 ML IV (03:11)
[2019-05-30] MEDS: PIPERACILLIN-TAZO 3.375 GM/50 ML FROZ.PIGGY IV ×2 (03:11→14:23)
[2019-05-30 04:20] VITALS: BP 111/51; PULSE 78; RESP 16; TEMP 36.6; O2SAT 94
[2019-05-30] MEDS: LEVOTHYROXINE 25 MCG TABLET PO (05:42)
[2019-05-30 05:45] LABS: Add Manual Diff / Slide Review NO; Basophils Absolute Auto 0 /uL (0-100); Basophils Percent Auto 0.2 % (0-2); Eosinophils Absolute Auto 100 /uL (0-450); Eosinophils Percent Auto 0.5 % (2-4); Hematocrit 35.8 % (36-46); Hemoglobin 11.9 g/dL (12.0-16.0); Lymphocytes Absolute Auto 1100 /uL (1100-4500); Lymphocytes Percent Auto 6.9 % (25-40); Mean Corpuscular HGB Conc 33.3 % (30-36); Mean Corpuscular Hemoglobin 30.6 PG (26-34); Monocytes Absolute Auto 1800 /uL (0-900); Neutrophils Absolute Auto 13400 /uL (1500-7000); Neutrophils Percent Auto 81.4 % (50-75); Platelet Count 176 X10^3/uL (150-400); Red Blood Cell Count 3.89 X10^6/uL (4.0-5.2); Red Cell Distribution Width 13.5 % (11.6-14.8); White Blood Cell Count 16.4 X10^3/uL (4.5-11.0)
[2019-05-30] MEDS: OXYCODONE IR 10 MG TABLET PO (05:45)
[2019-05-30 05:59] LABS: Alanine Aminotransferase 32 IU/L (9-52); Albumin 2.9 g/dL (3.5-5.0); Albumin Globulin Ratio 1.1 (1.0-2.8); Alkaline Phosphatase 119 U/L (38-126); Aspartate Aminotransferase 36 IU/L (14-36); BUN Creatinine Ratio 7.1 (6-22); Bilirubin Total 1.5 mg/dL (0.2-1.3); Blood Urea Nitrogen 5 mg/dL (7-17); Calcium 8.2 mg/dL (8.4-10.2); Carbon Dioxide 30 mmol/L (22-32); Chloride 101 mmol/L (98-107); Estimated Glomerular Filt Rate > 60.0 mL/min (>60); Globulin 2.7 g/dL (1.7-4.1); Glucose 140 mg/dL (80-110); HEMOLYSIS < 15 (0-50); Magnesium 2.2 mg/dL (1.6-2.3); Phosphorous 3.5 mg/dL (2.8-4.1); Potassium 3.5 mmol/L (3.4-5.1); Sodium 137 mmol/L (137-145); Total Protein 5.6 g/dL (6.3-8.2)
--- NOTE | 2019-05-30 06:10 | PC.NURSE ---
Pt rested overnight without over sedation, easily aroused to voice. Pt reports pain 7/10 at 0600. PRN oxycodone 10mg given, will reassess for good effect. Pt NPO except for meds. Pt reports no plan for surgery at this time. Tbili improving. LUE midline, CIVF of D4NS at 100CC/hr. Monitoring for increased acute pain and change in character of abdominal pain. VSS.
[2019-05-30 08:00] VITALS: BP 119/61; PULSE 81; RESP 20; TEMP 37.5; O2SAT 93
[2019-05-30 08:55] VITALS: O2SAT 87; O2SAT 92; O2SAT 93
--- NOTE | 2019-05-30 09:12 | CM.DANOTE ---
Addendum entered by Mary Arellano LPN 05/30/19 12:43: Dr. Dalal was just here seeing pt. He is coordinating a transfer to [facility] for placement of a pigtail drain with plan for a return to after the procedure is completed. DCP team will check in after her return and be following prn for d/c issues and options as POC unfolds. Original Note: Discharge Planning/Care Management DCP: assessment: case received, EMR reviewed and met with pt. She is found lying flat in bed, o2 in place, a bit groggy, trying to get her tablet charged with RN helping her. Introduced self and role. Pt is a 74 year old female who admitted to care of [facility] team evening ot 05/28. Dx at this time is acute cholecystitis with ? of a stone in CBD. Dr. Ramos has been following pt and yesterday planned for a RUQ US to help in the dx process. Pt confirms that her understanding of the POC is that she will be treated medically and when she is well rested, in about a month, she will have surgery. She is functionally independent at baseline and reports a supportive spouse. P: likely home when stable for same. DCP team will be following as POC unfolds. CM Discharge Assessment Start: 05/30/19 09:09 Freq: Status: Active Protocol: Document 05/30/19 09:09 ITV (Rec: 05/30/19 09:11 ITV [id number]) Discharge Planning Assessment Advance Directives? Yes History Provided By Patient,Medical Record Prior Living Arrangements House Household Members spouse Comment lives with spouse: Bradley Valdovinos in [place] Independent with ADL's Yes Is patient alert and oriented? Yes Comment None, pt says I do a 15 minute mile Whiteboard Updated in Patient Room with Yes name and ext. # of Aluminum Container Tester Review Status In Process
[2019-05-30] MEDS: ENOXAPARIN 40 MG/0.4 ML SYRINGE SUBCUT (09:40)
[2019-05-30] MEDS: DULOXETINE 30 MG CAPSULE 60 MG PO (09:40)
[2019-05-30] MEDS: POTASSIUM CHLORIDE 20 MEQ TAB 40 MEQ PO (09:40)
[2019-05-30] MEDS: SODIUM CHLORIDE 0.9% FLUSH 10 ML IV (09:41)
--- NOTE | 2019-05-30 11:07 | PC.NURSE ---
Pts BT positive x4. Pt lying on her back and denies discomfort. She is somulant but easily awakens. She has been NPO since midnight. Medications given with small sip of water. Pt did not get her blood pressure medications as bp 90s/50s. Pt is resting now.
[2019-05-30 12:00] VITALS: BP 115/44; PULSE 81; RESP 18; TEMP 37.2; O2SAT 96
--- NOTE | 2019-05-30 12:11 | PM.PN.1 ---
Subjective Subjective Date Patient Seen: 05/30/19 Time Patient Seen: 12:12 Interval history: The patient is a woman admitted with acute cholecystitis 2 days ago. She was begun on IV antibiotics and dietary restriction to clear liquids. She initially had improvement in her symptomatology and a decrease in her white count from 25-18. However her pain has not improved since yesterday and may be a little worse. Her white blood cell count is down to 16 but there is still a substantial preponderance of segs at 81. She also has had elevation in her bilirubin. She has been NPO except for meds through the night. Nursing reports that her blood pressure was a little low this morning and her BP meds were held. She has received DVT prophylaxis with Lovenox at 40 mg. Exam Vital Signs (past 8 hours): - 05/30/19 04:20 05/30/19 08:00 05/30/19 08:55 Temperature 97.9 F 99.5 F Pulse Rate 78 81 Respiratory Rate 16 20 Blood Pressure 111/51 L 119/61 Pulse Oximetry 94 93 92 Oxygen Delivery Method Nasal Cannula Oxygen Flow Rate 2 Narrative Exam Narrative: Cooperative. Walks and moves very slowly even when on observed. Wincing with change in position. Eyes are nonicteric. Lungs are clear. Heart regular rate and rhythm with a soft 1/6 intermittent systolic murmur heard best at the base. Her abdomen is distended and protuberant. It is soft with a sense of fullness in the right upper abdomen and localized tenderness with voluntary guarding. Objective Labs Result Diagrams: 05/30/19 05:24 05/30/19 05:24 Labs: Laboratory Results - last 24 hr 05/30/19 05/30/19 05/30/19 05:24 05:24 05:24 WBC 16.4 H RBC 3.89 L Hgb 11.9 L Hct 35.8 L MCV 92.0 MCH 30.6 MCHC 33.3 RDW 13.5 Plt Count 176 Neut % (Auto) 81.4 H Lymph % (Auto) 6.9 L [place] % (Auto) 11.0 Eos % (Auto) 0.5 L Baso % (Auto) 0.2 Neut # (Auto) 58001 H Lymph # (Auto) 1100 [place] # (Auto) 1800 H Eos # (Auto) 100 Baso # (Auto) 0 Sodium 137 Potassium 3.5 Chloride 101 Carbon Dioxide 30 BUN 5 L Creatinine 0.70 Estimated GFR > 60.0 BUN/Creatinine Ratio 7.1 Glucose 140 H Calcium 8.2 L Phosphorus 3.5 Magnesium 2.2 Total Bilirubin 1.5 H AST 36 ALT 32 Alkaline Phosphatase 119 Total Protein 5.6 L Albumin 2.9 L Globulin 2.7 Albumin/Globulin Ratio 1.1 Assessment & Plan Assessment & Plan narrative: Patient has cholelithiasis with cholecystitis. She probably has hydrops of the gallbladder. This would explain or distension wall thickening and surrounding inflammatory areas well the stone possibly lodged in the neck of her gallbladder. We are at a point where I think proceeding to an intervention is necessary. Given the inflammation of the gallbladder it is probably reasonable to place a cholecystostomy tube and hopefully relieve her symptoms and her inflammation and allow for an elective cholecystectomy. I have talked to her about this. I also talked to her about proceeding to a laparoscopic cholecystectomy and the risks associated with that which are probably increased over standard risks for an elective procedure and additionally carry an increased risk for an open cholecystectomy. She appears to understand and wishes to proceed with a cholecystostomy tube. She understands that this may be in for many weeks before elective cholecystectomy is done. The increase in her bilirubin and it subsequent slow decline suggest to me that this is related to gallbladder inflammation and possibly the stone impaction at the neck of the gallbladder not due to a common bile duct stone given the findings on CT scan and ultrasound. I have talked to Dr. Brandin weaver [facility] radiology who has kindly agreed to place a cholecystostomy tube. Arrangements are being made for transfer. She feels that it will be late enough in the day however that the patient probably should stay at [facility] overnight. Therefore I am awaiting confirmation of transfer and discussion with the hospitalist on-call. Quality VTE Deep Vein Thrombosis/Pulmonary Embolism Present on Admission: No
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
[2019-05-30 13:45] LABS: INR 1.2 (0.9-1.3); Prothrombin Time 14.2 SECONDS (10.1-12.7)
[2019-05-30 13:47] LABS: PTT Partial Thromboplastin Tim 37 SECONDS (26.4-36.2)
--- NOTE | 2019-05-30 18:10 | PC.NURSE ---
1615- Pt dressed, all belongings with pt, ROSELYN midline SL, CDI, VSS. Report given to ambulance staff. Pt taken on stretcher.
--- NOTE | 2019-05-31 09:17 | PC.NURSE ---
05/31/19 Pharmacy has notified this nursing center tutor that some of the patients personal meds have been left behind inside a purse with a photo of a dog on it. This purse and items inside have been labled with this patient's name and information and is locked in the safe in the coordinators office. The pt had been transfered to [facility] 05/30. Pt's has been notified. He reports that he is currently with his at [facility] and someone will come to retrieve her items.
== END 2019-05-30 16:25 | disposition short-term general hospital (02) | DRG 445 ==
LOC: ED 14:54 → AC 17:51
PROVIDERS: Specialist; Admitting Provider Surgery; Emergency Provider Emergency Medicine; PCP Internal Medicine; Visit Provider Surgery
DX: K80.00 Calculus of gallbladder with acute cholecystitis without obstruction (principal); K82.1 Hydrops of gallbladder; K29.80 Duodenitis without bleeding; E66.9 Obesity, unspecified; Z68.33 Body mass index [BMI] 33.0-33.9, adult; F43.10 Post-traumatic stress disorder, unspecified
CPT/HCPCS: 36415; 74177; 76705; 80053; 81003; 81015; 83690; 83735; 84100; 85025; 85610; 85730; 87086; 93005; 94760; 96365; 96375; 99222; 99232; 99238; 99283; 99284; J1650; J2405; J2543; Q9967

== ENCOUNTER 2020-04-30 22:16 | Emergency (ER) | payer MEDICARE, SELFPAY ==
[2019-11-19 12:11] VITALS: BMI 33.3
[2020-04-30 22:43] VITALS: BP 171/81; PULSE 79; RESP 18; TEMP 36.6; O2SAT 96; BMI 33.3
[2020-05-01 00:22] LABS: Add Manual Diff / Slide Review NO; Basophils Absolute Auto 0 /uL (0-100); Basophils Percent Auto 0.6 % (0-2); Eosinophils Absolute Auto 100 /uL (0-450); Eosinophils Percent Auto 1.4 % (2-4); Hematocrit 40.3 % (36-46); Hemoglobin 13.3 g/dL (12.0-16.0); Lymphocytes Absolute Auto 2700 /uL (1100-4500); Lymphocytes Percent Auto 35.5 % (25-40); Mean Corpuscular Hemoglobin 30.1 PG (26-34); Mean Corpuscular Volume 91.2 fL (80-100); Monocytes Absolute Auto 1000 /uL (0-900); Monocytes Percent Auto 13.1 % (3-14); Neutrophils Absolute Auto 3700 /uL (1500-7000); Neutrophils Percent Auto 49.4 % (50-75); Platelet Count 207 X10^3/uL (150-400); Red Blood Cell Count 4.42 X10^6/uL (4.0-5.2); Red Cell Distribution Width 13.6 % (11.6-14.8); White Blood Cell Count 7.5 X10^3/uL (4.5-11.0)
[2020-05-01 00:25] LABS: Alanine Aminotransferase 22 IU/L (<35); Albumin Globulin Ratio 1.4 (1.0-2.8); Alkaline Phosphatase 98 U/L (38-126); Aspartate Aminotransferase 27 IU/L (14-36); BUN Creatinine Ratio 19.7 (6-22); Bilirubin Total 0.5 mg/dL (0.2-1.3); Blood Urea Nitrogen 15 mg/dL (7-17); Carbon Dioxide 31 mmol/L (22-32); Chloride 101 mmol/L (98-107); Estimated Glomerular Filt Rate > 60.0 mL/min (>60); Globulin 2.8 g/dL (1.7-4.1); Glucose 93 mg/dL (80-110); HEMOLYSIS 23 (0-50); Potassium 3.8 mmol/L (3.4-5.1); Sodium 138 mmol/L (137-145); Total Protein 6.8 g/dL (6.3-8.2)
[2020-05-01 00:26] LABS: Lactate (Lactic Acid) 0.9 mmol/L (0.7-2.1)
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
[2020-05-01 01:46] VITALS: BP 143/75; PULSE 80; RESP 20; O2SAT 97
== END 2020-05-01 01:47 | disposition home or self-care (01) ==
PROVIDERS: Emergency Provider Emergency Medicine; PCP Internal Medicine
DX: R50.9 Fever, unspecified (principal); R05 Cough
CPT/HCPCS: 36415; 80053; 83605; 85025; 99283

== ENCOUNTER 2022-07-15 18:19 | Emergency (ER) | payer MEDICARE, SELFPAY ==
[2022-07-02 12:46] VITALS: BMI 33.3
[2022-07-15 19:02] VITALS: BP 109/66; PULSE 92; RESP 18; TEMP 37.2; O2SAT 97; BMI 34.4
--- NOTE | 2022-07-15 19:08 | DI.RAD.S_ITS ---
PROCEDURE: XR CHEST 2V INDICATIONS: congestion for a week TECHNIQUE: 2 views of the chest were acquired. COMPARISON: [facility], CR, XR CHEST 1 VIEW, 09/15/2019, 16:02. [facility], CR, CHEST 2 VIEW, 08/22/2016, 14:13. FINDINGS: Surgical changes and devices: Surgical changes are seen in the lower cervical spine. Lungs and pleura: Lungs are clear. No pleural effusions or pneumothorax. Mediastinum: Mediastinal contours are normal. Heart size is normal. Bones and chest wall: No suspicious bony abnormalities. Soft tissues appear unremarkable. IMPRESSION: No acute cardiopulmonary abnormality. Approved by: Shree Parra M.D. on 07/15/2022 at 19:37
[2022-07-15 20:40] LABS: Influenza A - CEPHEID Flu A NEGATIVE (NEGATIVE); Influenza B - CEPHEID Flu B NEGATIVE (NEGATIVE); Respiratory Syncytial Virus Negative (Negative)
[2022-07-15 20:54] LABS: COVID-19 CEPHEID 4-PLEX PCR POSITIVE (Negative)
--- NOTE | 2022-07-16 00:55 | PC.NURSE ---
called [facility] the first time at 1205, no answer, called [facility] the second time, left a message to call back for results.
--- NOTE | 2022-07-16 12:23 | PC.NURSE ---
Pt called back for results: Pt is Covid +, pt verbalized understanding. Encouraged to f/u as needed and indicated and return for any needs, concerns, worsening of symptoms.
== END 2022-07-16 00:58 | disposition left against medical advice (07) ==
PROVIDERS: Emergency Provider Emergency Medicine; PCP Student in an Organized Health Care Education/Training Program
DX: R09.89 Other specified symptoms and signs involving the circulatory and respiratory systems (principal); Z20.822 Contact with and (suspected) exposure to COVID-19
CPT/HCPCS: 0241U; 71046; 99281

== ENCOUNTER 2023-04-27 11:00 | Emergency (ER) | payer MEDICARE, SELFPAY ==
[2022-07-02 12:46] VITALS: BMI 33.3
[2023-04-27] VITALS (10 sets, daily range): BP systolic 111–136; BP diastolic 56–88; PULSE 63–96; RESP 13–24; TEMP 36.7; O2SAT 94–96; BMI 32.8
--- NOTE | 2023-04-27 11:14 | DI.RAD.S_ITS ---
PROCEDURE: XR CHEST 1V INDICATIONS: chest pain TECHNIQUE: One view of the chest was acquired. COMPARISON: [facility], CT, CT CHEST WITHOUT CONTRAST, 09/15/2019, 17:16. [facility], CR, XR CHEST 2V, 07/15/2022, 19:25. FINDINGS: Surgical changes and devices: Cervical spine fixation hardware is seen. Lungs and pleura: Lungs are clear. No pleural effusions or pneumothorax. Low lung volumes are noted. This causes a crowded appearance to the lung markings and limits evaluation. There is elevation of the right hemidiaphragm. Mediastinum: Mediastinal contours appear normal. Heart size is normal. Bones and chest wall: No suspicious bony lesions. Age-appropriate bony degenerative changes are seen. Overlying soft tissues appear unremarkable. IMPRESSION: No kimberly acute abnormality is seen. Elevation of the right hemidiaphragm noted. Postoperative and degenerative changes are seen. Dictated by: Gerardo Polanco M.D. on 04/27/2023 at 10:38 Approved by: Gerardo Polanco M.D. on 04/27/2023 at 10:39
--- NOTE | 2023-04-27 11:18 | DI.CT.S_ITS ---
PROCEDURE: CT HEAD/BRAIN WO CON INDICATIONS: dizziness, confusion TECHNIQUE: Noncontrast 4.5 mm thick angled axial sections acquired from the foramen magnum to the vertex, with coronal and sagittal reformats. For radiation dose reduction, the following was used: automated exposure control, adjustment of mA and/or kV according to patient size. COMPARISON: [facility], CR, XR CHEST 1V, 04/27/2023, 11:25. FINDINGS: Image quality: Mild streak artifact can be seen through the skull base. CSF spaces: Basal cisterns are patent. No extra-axial fluid collections. The ventricles are symmetric in size and shape. Brain: No intracranial bleeds or masses. There is cerebral volume loss for age, with resultant ventricular and sulcal prominence. There are periventricular and deep white matter chronic small vessel ischemic changes. There is intracranial internal carotid artery atherosclerosis. Skull and face: Calvarium and visualized facial bones appear intact, without suspicious lesions. Sinuses: Visualized sinuses and mastoids are clear. IMPRESSION: No imaging explanation is found for this patient's presenting symptoms. No acute intracranial hemorrhage is seen. No acute intracranial process is seen. If there is strong clinical suspicion for an acute stroke, please consider a brain MRI for further evaluation, as it is more sensitive (assuming that there is no contraindication to MRI). Dictated by: Gerardo Polanco M.D. on 04/27/2023 at 11:52 Approved by: Gerardo Polanco M.D. on 04/27/2023 at 11:53
[2023-04-27 11:26] LABS: Add Manual Diff / Slide Review NO; Basophils Absolute Auto 100 /uL (0-100); Basophils Percent Auto 0.6 % (0-2); Eosinophils Absolute Auto 100 /uL (0-450); Eosinophils Percent Auto 0.9 % (2-4); Hemoglobin 15.1 g/dL (12.0-16.0); Lymphocytes Absolute Auto 2500 /uL (1100-4500); Lymphocytes Percent Auto 24.3 % (25-40); Mean Corpuscular HGB Conc 33.5 % (30-36); Mean Corpuscular Hemoglobin 30.4 PG (26-34); Mean Corpuscular Volume 90.8 fL (80-100); Monocytes Absolute Auto 1300 /uL (0-900); Monocytes Percent Auto 12.6 % (3-14); Neutrophils Absolute Auto 6200 /uL (1500-7000); Neutrophils Percent Auto 61.6 % (50-75); Platelet Count 273 X10^3/uL (150-400); Red Blood Cell Count 4.95 X10^6/uL (4.0-5.2); Red Cell Distribution Width 14.1 % (11.6-14.8); White Blood Cell Count 10.1 X10^3/uL (4.5-11.0)
--- NOTE | 2023-04-27 11:28 | ED_ITS ---
HPI - Dizziness <Nuria Street PA-C - Last Filed: 04/27/23 13:46> General Chief Complaint: Dizziness Stated Complaint: disoriented, dizziness Time Seen by Provider: 04/27/23 11:10 Source: patient Mode of arrival: Wheelchair History of Present Illness HPI Narrative: Patient is a 78-year-old female with a history of fibromyalgia, cervical spine pain with history of 2 surgeries, last in December of 2022, hypertension, PTSD and disordered eating. She presents today with 1 week of worsening dizziness and confusion. She attributes this to a medication change proximally 1 week ago, when she started losartan for her blood pressure. She was also started on Wellbutrin at that time as well as a 3rd medication for weight loss which she can not remember the name of. She seen in advanced clinical specialist for this due to a recent weight gain and attempting to lose weight. She reports a recent C- spine surgery was not successful and she is scheduled to see the neurosurgeons for steroid injections and then a repeat surgery. At baseline, she takes temazepam and gabapentin for her fibromyalgia and anxiety. Related Data Home Medications Medication Instructions Recorded Confirmed amlodipine 5 mg tablet 5 mg PO DAILY #90 tabs 03/24/19 03/14/22 furosemide 40 mg tablet 40 mg PO DAILY #90 tabs 03/24/19 03/14/22 albuterol sulfate 90 mcg/actuation 2 puff inhalation QID 08/22/20 09/21/20 aerosol inhaler duloxetine 20 mg capsule,delayed 20 mg PO DAILY 03/14/22 03/14/22 release Previous Rx's Medication Instructions Recorded simvastatin 20 mg tablet 20 mg PO BEDTIME #90 tabs 01/08/20 levothyroxine 25 mcg tablet 25 mcg PO DAILY #90 tabs 03/25/20 (Levoxyl) amitriptyline 50 mg tablet 50 mg PO BEDTIME #90 tabs 09/21/20 gabapentin 300 mg capsule 300 mg PO BID PRN anixety #180 caps 09/27/20 (Neurontin) temazepam 15 mg capsule 15 mg PO BEDTIME PRN Insomnia #21 04/09/23 caps Allergies Allergy/AdvReac Type Severity Reaction Status Date / Time fentanyl Allergy Severe Anaphylaxis Verified 04/27/23 11:14 sumatriptan [From IMITREX] Allergy Severe FACIAL Verified 04/27/23 11:14 SWELLING, RASH propoxyphene [From DARVON] Allergy Intermediate NOT ABLE Verified 04/27/23 11:14 TO MOVE WELL AND FUNCTION codeine [CODEINE] AdvReac Mild NAUSEA Verified 04/27/23 11:14 oxycodone [OXYCODONE] AdvReac Mild NAUSEA Verified 04/27/23 11:14 sertraline [SERTRALINE] AdvReac Mild Verified 04/27/23 11:14 Review of Systems <Nuria Street PA-C - Last Filed: 04/27/23 13:46> Review of Systems ROS Unobtainable: All systems reviewed & are unremarkable except as noted in HPI and below Patient History <Nuria Street PA-C - Last Filed: 04/27/23 13:46> Medical History Ankle pain (~1987) Back pain Cataracts, bilateral (~2019) Cervical pain (neck) Chicken pox Chronic cough (~2021) Colon polyps (~2017) Depression (emotion) Eating disorder Elevated liver enzymes Fibromyalgia (~1989) Headache (~1955) Hemorrhoid (~1966) Hypertension (~2006) Hyperthyroidism (~1994) Hypothyroidism Irritable bowel syndrome (~1989) Measles (~1955) Migraines (~1966) Ovarian cyst (~2017) Post-traumatic stress disorder, chronic PTSD (post-traumatic stress disorder) Recurrent sinusitis (~2002) Sciatica associated with disorder of lumbar spine Seizure (~2018) Uterine cancer (~1981) Surgical History Anesthesia History of cholecystectomy (~2018) History of vein stripping (~1979) Previous back surgery (~2018) Status post hysterectomy (~1979) Family History Father Hypertension Stroke Parkinson's disease Mother Prostate cancer Hypertension Hyperlipidemia Grandfather Cancer Diabetes mellitus Hyperlipidemia Grandmother Hyperlipidemia Grandfather MVA (motor vehicle accident) Grandmother Alcoholism Social History household members: spouse Smoking Status: Never smoker alcohol intake: former Smoking Status: Never smoker alcohol intake frequency: 0-2 drinks per day Substance Use Type: does not use Exam <DANNY Dailey Last Filed: 04/27/23 13:46> Narrative Exam Narrative: GENERAL: 78 year old patient appears stated age. Well-developed patient, in no distress. NEURO: Alert and oriented x3, mood/affect normal, normal speech, normal cognition. CN's (II-XII) grossly intact,. No gross motor deficit, 5/5 strength throughout, no gross sensory loss, normal movement, no pronator drift. HEAD: Atraumatic. Normocephalic. EYES: Pupils equal round and reactive. Extraocular motions intact. No scleral icterus. No injection or drainage. ENT: Nose without bleeding or purulent drainage. Airway patent. NECK: Trachea midline. Non tender CARDIOVASCULAR: Regular rate and rhythm with occasional irregularity without murmurs, gallops, or rubs. RESPIRATORY: Clear to auscultation. Breath sounds equal bilaterally. No wheezes, rales, or rhonchi. EXTREMITIES: No edema or joint tenderness. SKIN: No rash or erythema of visible areas Initial Vital Signs Initial Vital Signs: Vital Signs Temperature 98.1 F 04/27/23 11:01 Pulse Rate 86 04/27/23 11:01 Respiratory Rate 13 04/27/23 11:01 Blood Pressure 136/75 04/27/23 11:01 Pulse Oximetry 94 04/27/23 11:01 Oxygen Delivery Method Room Air 04/27/23 11:01 <Luke Santos DO - Last Filed: 04/27/23 13:54> Initial Vital Signs Initial Vital Signs: Vital Signs Temperature 98.1 F 04/27/23 11:01 Pulse Rate 86 04/27/23 11:01 Respiratory Rate 13 04/27/23 11:01 Blood Pressure 136/75 04/27/23 11:01 Pulse Oximetry 94 04/27/23 11:01 Oxygen Delivery Method Room Air 04/27/23 11:01 Course <Nuria Street PA-C - Last Filed: 04/27/23 13:46> Orders Ordered: ED Orders 04/27/23 11:14 XR chest 1V Stat EKG-12 Lead Stat 04/27/23 11:15 Complete Blood Count AUTO DIFF Stat Comprehensive Metabolic Panel Stat Lipase Stat Magnesium Stat PTT Partial Thromboplastin Adilson Stat Prothrombin Time INR Stat Troponin & CK Cardiac Panel Stat 04/27/23 11:18 CT head/brain wo con Stat 04/27/23 12:40 XR chest 2V Stat Discontinued Medications Aspirin (Aspirin 81 Mg Chew Tab) 324 mg PO NOW ONE Stop: 04/27/23 11:14 Last Admin: 04/27/23 13:33 Dose: Not Given Documented By: BALDEMAR Vital Signs Vital signs: Vital Signs - 8 hr 04/27/23 11:01 04/27/23 11:07 04/27/23 11:08 Temperature 98.1 F Pulse Rate 86 96 H Respiratory Rate 13 Blood Pressure 136/75 136/75 Pulse Oximetry 94 94 Oxygen Delivery Method Room Air 04/27/23 11:08 04/27/23 11:30 04/27/23 11:30 Temperature Pulse Rate 84 74 Respiratory Rate 18 17 Blood Pressure 114/66 Pulse Oximetry 94 95 Oxygen Delivery Method 04/27/23 12:00 04/27/23 12:00 04/27/23 12:14 Temperature Pulse Rate 77 71 Respiratory Rate 21 24 Blood Pressure 111/79 Pulse Oximetry 95 95 Oxygen Delivery Method 04/27/23 12:14 04/27/23 12:30 04/27/23 12:30 Temperature Pulse Rate 68 Respiratory Rate 15 Blood Pressure 127/64 124/62 Pulse Oximetry 95 Oxygen Delivery Method 04/27/23 13:00 04/27/23 13:08 04/27/23 13:08 Temperature Pulse Rate 68 70 Respiratory Rate Blood Pressure 120/88 Pulse Oximetry 96 95 Oxygen Delivery Method 04/27/23 13:30 04/27/23 13:30 Temperature Pulse Rate 63 Respiratory Rate Blood Pressure 119/56 L Pulse Oximetry 95 Oxygen Delivery Method <Luke Santos, - Last Filed: 04/27/23 13:54> Orders Ordered: ED Orders 04/27/23 11:14 XR chest 1V Stat EKG-12 Lead Stat 04/27/23 11:15 Complete Blood Count AUTO DIFF Stat Comprehensive Metabolic Panel Stat Lipase Stat Magnesium Stat PTT Partial Thromboplastin Adilson Stat Prothrombin Time INR Stat Troponin & CK Cardiac Panel Stat 04/27/23 11:18 CT head/brain wo con Stat 04/27/23 12:40 XR chest 2V Stat Discontinued Medications Aspirin (Aspirin 81 Mg Chew Tab) 324 mg PO NOW ONE Stop: 04/27/23 11:14 Last Admin: 04/27/23 13:33 Dose: Not Given Documented By: DKJaney Vital Signs Vital signs: Vital Signs - 8 hr 04/27/23 11:01 04/27/23 11:07 04/27/23 11:08 Temperature 98.1 F Pulse Rate 86 96 H Respiratory Rate 13 Blood Pressure 136/75 136/75 Pulse Oximetry 94 94 Oxygen Delivery Method Room Air 04/27/23 11:08 04/27/23 11:30 04/27/23 11:30 Temperature Pulse Rate 84 74 Respiratory Rate 18 17 Blood Pressure 114/66 Pulse Oximetry 94 95 Oxygen Delivery Method 04/27/23 12:00 04/27/23 12:00 04/27/23 12:14 Temperature Pulse Rate 77 71 Respiratory Rate 21 24 Blood Pressure 111/79 Pulse Oximetry 95 95 Oxygen Delivery Method 04/27/23 12:14 04/27/23 12:30 04/27/23 12:30 Temperature Pulse Rate 68 Respiratory Rate 15 Blood Pressure 127/64 124/62 Pulse Oximetry 95 Oxygen Delivery Method 04/27/23 13:00 04/27/23 13:08 04/27/23 13:08 Temperature Pulse Rate 68 70 Respiratory Rate Blood Pressure 120/88 Pulse Oximetry 96 95 Oxygen Delivery Method 04/27/23 13:30 04/27/23 13:30 Temperature Pulse Rate 63 Respiratory Rate Blood Pressure 119/56 L Pulse Oximetry 95 Oxygen Delivery Method MDM - Dizziness <Nuria Street PA-C - Last Filed: 04/27/23 13:46> Lab Data 04/27/23 11:15 04/27/23 11:15 Labs: Lab Results 04/27/23 04/27/23 04/27/23 Range/Units 11:15 11:15 11:15 WBC 10.1 (4.5-11.0) X10^3/uL RBC 4.95 (4.0-5.2) X10^6/uL Hgb 15.1 (12.0-16.0) g/dL Hct 45.0 (36-46) % MCV 90.8 (80-100) fL MCH 30.4 (26-34) PG MCHC 33.5 (30-36) % RDW 14.1 (11.6-14.8) % Plt Count 273 (150-400) X10^3/uL Neut % (Auto) 61.6 (50-75) % Lymph % (Auto) 24.3 L (25-40) % [place] % (Auto) 12.6 (3-14) % Eos % (Auto) 0.9 L (2-4) % Baso % (Auto) 0.6 (0-2) % Neut # (Auto) 6200 (1133-6083) /uL Lymph # (Auto) 2500 (3993-1871) /uL [place] # (Auto) 1300 H (0-900) /uL Eos # (Auto) 100 (0-450) /uL Baso # (Auto) 100 (0-100) /uL PT 12.1 (10.1-12.7) SECONDS INR 1.1 (0.9-1.3) APTT 30 (26-36) SECONDS Sodium 134 L (137-145) mmol/L Potassium 3.2 L (3.4-5.1) mmol/L Chloride 90 L (98-107) mmol/L Carbon Dioxide 32 (22-32) mmol/L BUN 31 H (7-17) mg/dL Creatinine 1.31 H (0.52-1.04) mg/dL Estimated GFR 42 L (>60) mL/min BUN/Creatinine Ratio 23.7 H (6-22) Glucose 116 H (80-110) mg/dL Calcium 9.5 (8.4-10.2) mg/dL Magnesium 2.2 (1.6-2.3) mg/dL Total Bilirubin 0.8 (0.2-1.3) mg/dL AST 26 (14-36) IU/L ALT 29 (<35) IU/L Alkaline Phosphatase 105 (38-126) U/L Total Creatine Kinase < 20 L (30-135) U/L Troponin I < 0.012 (0.01-0.034) ng/mL Total Protein 7.8 (6.3-8.2) g/dL Albumin 4.5 (3.5-5.0) g/dL Globulin 3.3 (1.7-4.1) g/dL Albumin/Globulin Ratio 1.4 (1.0-2.8) Lipase 75 (23-300) U/L ECG Data Interpretation: EKG shows normal sinus rhythm with sinus arrhythmia, rate of 91, CT 124, QRS 82. No ST-T changes. MDM Narrative Medical decision making narrative: Multiple etiologies for patient's symptoms considered including, but not limited to: Stroke, electrolyte abnormality, acute coronary syndrome, vertigo, infection, orthostatic hypotension. Workup in the emergency room without clinically significant abnormality. Mild hypokalemia, hyponatremia and hypochloremia noted, likely chronic. Chest x-ray with low lung volumes and possible left pleural effusion without clear evidence of pneumonia. No leukocytosis on labs. EKG with sinus arrhythmia without any ST T changes. Troponin negative. Head CT without any acute abnormality. Suspect patient's dizziness is secondary to new medications, she started 3 medications last week including losartan, Wellbutrin and a 3rd medication that she does not remember the name of. She is alert and oriented x3 during her ER stay and able to carry a conversation throughout multiple discussions. Discussed our findings today with the patient and her . Discussed that we will often adapt to new medications and side effects we will lessen over time. She has a follow up appointment in 2 days with her primary care doctor weeks at which point she can be reassessed and discussed any medication changes and might need to be made. Encouraged her to be very careful to prevent falls; she has a walker at home from a past use and she could use that when she is ambulating. Return precautions discussed. Patient's symptoms improved over duration of stay with above-stated therapies. Findings and discharge diagnosis discussed with patient/family followed by verbalization of understanding Return precautions discussed with patient/family whom verbalize understanding of diagnosis and plan <Luke Santos, DO - Last Filed: 04/27/23 13:54> Lab Data Labs: Lab Results 04/27/23 04/27/23 04/27/23 Range/Units 11:15 11:15 11:15 WBC 10.1 (4.5-11.0) X10^3/uL RBC 4.95 (4.0-5.2) X10^6/uL Hgb 15.1 (12.0-16.0) g/dL Hct 45.0 (36-46) % MCV 90.8 (80-100) fL MCH 30.4 (26-34) PG MCHC 33.5 (30-36) % RDW 14.1 (11.6-14.8) % Plt Count 273 (150-400) X10^3/uL Neut % (Auto) 61.6 (50-75) % Lymph % (Auto) 24.3 L (25-40) % [place] % (Auto) 12.6 (3-14) % Eos % (Auto) 0.9 L (2-4) % Baso % (Auto) 0.6 (0-2) % Neut # (Auto) 6200 (3623-7702) /uL Lymph # (Auto) 2500 (5065-4314) /uL [place] # (Auto) 1300 H (0-900) /uL Eos # (Auto) 100 (0-450) /uL Baso # (Auto) 100 (0-100) /uL PT 12.1 (10.1-12.7) SECONDS INR 1.1 (0.9-1.3) APTT 30 (26-36) SECONDS Sodium 134 L (137-145) mmol/L Potassium 3.2 L (3.4-5.1) mmol/L Chloride 90 L (98-107) mmol/L Carbon Dioxide 32 (22-32) mmol/L BUN 31 H (7-17) mg/dL Creatinine 1.31 H (0.52-1.04) mg/dL Estimated GFR 42 L (>60) mL/min BUN/Creatinine Ratio 23.7 H (6-22) Glucose 116 H (80-110) mg/dL Calcium 9.5 (8.4-10.2) mg/dL Magnesium 2.2 (1.6-2.3) mg/dL Total Bilirubin 0.8 (0.2-1.3) mg/dL AST 26 (14-36) IU/L ALT 29 (<35) IU/L Alkaline Phosphatase 105 (38-126) U/L Total Creatine Kinase < 20 L (30-135) U/L Troponin I < 0.012 (0.01-0.034) ng/mL Total Protein 7.8 (6.3-8.2) g/dL Albumin 4.5 (3.5-5.0) g/dL Globulin 3.3 (1.7-4.1) g/dL Albumin/Globulin Ratio 1.4 (1.0-2.8) Lipase 75 (23-300) U/L Discharge Plan Departure Patient Disposition: Home Clinical Impression: Medication side effect, Episodic lightheadedness Instructions: DI for Dizziness-Nonvertigo Activity Restrictions/Additional Instructions: * we did a full workup today that included a head CT, blood work, chest x-ray, EKG. There is no evidence of a stroke, infection, heart arrhythmia or heart attack. I suspect that the symptoms you are having of fatigue and lightheadedness may be secondary to the three new medications you started last week. As we discussed, your body will often adjust to new medications over time, although you may want to consider decreasing the dose or stopping the medication in consultation with the prescriber. Your potassium and sodium are a little bit low, as we discussed you can eat a banana and maybe have a salty snack later today. These abnormalities can also be a side effect of medications. Please follow up as scheduled with Dr. Wilkins on Saturday for medication review and reassessment. Please bring all your pill bottles or an updated list of all your medications including the metabolic medications to your appointment with Dr. Wilkins so that she can review. *What to do: *Please continue to take your regular medications as directed. [ ] New medication prescriptions sent to your pharmacy: [ ] [ ] New medication written as a paper prescription [x] No new medications given *Please follow up with your primary care provider in 2-3 days, call for an appointment. Let them know you were seen in the Emergency Department and that we ask that you be seen in follow up. We will electronically transmit a record of today's note if your PCP is in our system *If you do not have a primary care provider please contact the [facility] Resource line at [phone]. They will ask some questions about your medical history and help get you set up with a doctor in the community. *Return to Emergency Department if you should have any new, worsening or concerning symptoms, such as [fever greater than 101 F, shaking chills, worsening pain, persistent vomiting or other concerning symptoms]. Prescriptions: No Action amlodipine 5 mg tablet 5 mg PO DAILY Qty: 90 furosemide 40 mg tablet 40 mg PO DAILY Qty: 90 amitriptyline 50 mg tablet 50 mg PO BEDTIME Qty: 90 1RF albuterol sulfate 90 mcg/actuation HFA aerosol inhaler 2 puff inhalation QID duloxetine 20 mg capsule,delayed release(DR/EC) 20 mg PO DAILY Rx Instructions: started 02/22/22 by PCP, instructions to take 20mg daily x2 weeks, then increase to 40mg daily simvastatin 20 mg tablet 20 mg PO BEDTIME Qty: 90 0RF levothyroxine [Levoxyl] 25 mcg tablet 25 mcg PO DAILY Qty: 90 0RF gabapentin [Neurontin] 300 mg capsule 300 mg PO BID PRN (Reason: anixety) Qty: 180 0RF Rx Instructions: pt only taking 1 -2 caps daily temazepam 15 mg capsule 15 mg PO BEDTIME PRN (Reason: Insomnia) Qty: 21 0RF Referrals: Nidia Wilkins DO [Primary Care Provider] - Stand Alone Forms: Patient Portal/API <Luke Santos DO - Last Filed: 04/27/23 13:54> Cosign ED Attending Cosignature Attestation: Dr Santos Co-Sign Statement: I was available for consultation during this patient's emergency department visit. This chart is signed by myself for administrative purposes only. I did not have direct contact with this patient during this visit. They were seen independently by the APC.
[2023-04-27 11:32] LABS: INR 1.1 (0.9-1.3); Prothrombin Time 12.1 SECONDS (10.1-12.7)
[2023-04-27 11:35] LABS: PTT Partial Thromboplastin Tim 30 SECONDS (26-36)
[2023-04-27 11:37] LABS: Alanine Aminotransferase 29 IU/L (<35); Albumin 4.5 g/dL (3.5-5.0); Albumin Globulin Ratio 1.4 (1.0-2.8); Alkaline Phosphatase 105 U/L (38-126); Aspartate Aminotransferase 26 IU/L (14-36); BUN Creatinine Ratio 23.7 (6-22); Bilirubin Total 0.8 mg/dL (0.2-1.3); Blood Urea Nitrogen 31 mg/dL (7-17); Calcium 9.5 mg/dL (8.4-10.2); Carbon Dioxide 32 mmol/L (22-32); Chloride 90 mmol/L (98-107); Creatine Kinase < 20 U/L (30-135); Estimated Glomerular Filt Rate 42 mL/min (>60); Globulin 3.3 g/dL (1.7-4.1); Glucose 116 mg/dL (80-110); HEMOLYSIS < 15 (0-50); Lipase 75 U/L (23-300); Magnesium 2.2 mg/dL (1.6-2.3); Potassium 3.2 mmol/L (3.4-5.1); Sodium 134 mmol/L (137-145); Total Protein 7.8 g/dL (6.3-8.2)
[2023-04-27 11:48] LABS: Troponin I < 0.012 ng/mL (0.01-0.034)
--- NOTE | 2023-04-27 12:40 | DI.RAD.S_ITS ---
PROCEDURE: XR CHEST 2V INDICATIONS: low saturation, poor portable film TECHNIQUE: 2 views of the chest were acquired. COMPARISON: [facility], CT, CT HEAD/BRAIN WO CON, 04/27/2023, 11:59. [facility], CR, XR CHEST 1V, 04/27/2023, 11:25. FINDINGS: Surgical changes and devices: Cervical spine fixation hardware is seen. Lungs and pleura: An incomplete inspiratory result is noted, causing a crowded appearance to the lung markings. No focal infiltrates are seen. No pneumothorax or significant pleural effusions are seen. Mild generalized interstitial prominence can again be seen. There is elevation of the right knee diaphragm. Mediastinum: Mediastinal contours are normal. Heart size is mildly enlarged. Atherosclerotic calcification of the aortic arch is noted. Bones and chest wall: No suspicious bony abnormalities. Age-appropriate bony degenerative changes are seen. Soft tissues appear unremarkable. IMPRESSION: Low lung volumes are again seen, with mild generalized interstitial prominence. There is mild cardiomegaly. Please consider CHF. Elevation of right hemidiaphragm can again be seen. If there is strong clinical concern for paralysis of this hemidiaphragm, please consider a dedicated fluoroscopic sniff test for further evaluation. Dictated by: Gerardo Polanco M.D. on 04/27/2023 at 12:53 Approved by: Gerardo Polanco M.D. on 04/27/2023 at 12:54
== END 2023-04-27 13:42 | disposition home or self-care (01) ==
PROVIDERS: Emergency Medicine; Emergency Provider Physician Assistant; PCP Family Medicine
DX: R42 Dizziness and giddiness (principal); T43.295A Adverse effect of other antidepressants, initial encounter; E87.6 Hypokalemia; E87.1 Hypo-osmolality and hyponatremia; R07.9 Chest pain, unspecified; Z79.899 Other long term (current) drug therapy
CPT/HCPCS: 36415; 70450; 71045; 71046; 80053; 82550; 83690; 83735; 84484; 85025; 85610; 85730; 93005; 93010; 99284

== ENCOUNTER 2023-05-08 12:02 | Inpatient (IN) | payer OTHER, SELFPAY ==
[2022-07-02 12:46] VITALS: BMI 33.3
[2023-05-08] VITALS (77 sets, daily range): BP systolic 80–144; BP diastolic 45–96; PULSE 67–87; RESP 14–41; TEMP 35.9–36.8; O2SAT 91–98; BMI 32.1; BMI 35.9
--- NOTE | 2023-05-08 12:19 | DI.CT.S_ITS ---
PROCEDURE: CT HEAD/BRAIN WO CON INDICATIONS: fall, hit head, no focal weakness. TECHNIQUE: Noncontrast 4.5 mm thick angled axial sections acquired from the foramen magnum to the vertex, with coronal and sagittal reformats. For radiation dose reduction, the following was used: automated exposure control, adjustment of mA and/or kV according to patient size. COMPARISON: [facility], CT, CT HEAD/BRAIN WO CON, 04/27/2023, 11:59. FINDINGS: Image quality: Excellent. CSF spaces: Basal cisterns are patent. No extra-axial fluid collections. The ventricles are symmetric in size and shape. Brain: No intracranial bleeds or masses. There is cerebral volume loss for age, with resultant ventricular and sulcal prominence. Brain parenchyma is normal in appearance for patient age. Skull and face: Calvarium and visualized facial bones appear intact, without suspicious lesions. Sinuses: Visualized sinuses and mastoids are clear. IMPRESSION: Negative head CT for patient age. No acute intracranial abnormality. Dictated by: Ry Huntley M.D. on 05/08/2023 at 13:38 Approved by: Ry Huntley M.D. on 05/08/2023 at 13:39
--- NOTE | 2023-05-08 12:19 | DI.RAD.S_ITS ---
PROCEDURE: XR CHEST 1V INDICATIONS: chest pain TECHNIQUE: One view of the chest was acquired. COMPARISON: [facility], CR, XR CHEST 2V, 04/27/2023, 12:43. [facility], CR, XR CHEST 1V, 04/27/2023, 11:25. FINDINGS: Surgical changes and devices: None. Lungs and pleura: Lungs are clear. No pleural effusions or pneumothorax. Low lung volumes. Mediastinum: Mediastinal contours appear normal. Heart size is normal. Bones and chest wall: No suspicious bony lesions. Overlying soft tissues appear unremarkable. IMPRESSION: Portable chest within normal limits for age. Dictated by: Braxton Brown M.D. on 05/08/2023 at 12:51 Approved by: Braxton Brown M.D. on 05/08/2023 at 12:52
--- NOTE | 2023-05-08 12:19 | DI.CT.S_ITS ---
P a ROCEDURE: CT CERVICAL SPINE WO CON INDICATIONS: fall, hit head, no focal weakness. TECHNIQUE: Noncontrast 3 mm thick sections acquired from the skull base to the T4 level. Sagittal and coronal reformats were then constructed. For radiation dose reduction, the following was used: automated exposure control, adjustment of mA and/or kV according to patient size. COMPARISON: [facility], CT, C-SPINE WITHOUT CONTRAST, 06/25/2017, 2:54. FINDINGS: Image quality: Excellent. Bones: No fractures or dislocations. Visualized superior ribs are intact. Expected appearance of surgical hardware post ACDF at C4 through C6 with anterior plate and screw fixation and interbody spacer placement. No evidence of hardware failure or loosening. Lower cervical facet arthropathy. Soft tissues: Prevertebral soft tissues are normal in thickness. No paravertebral hematomas. No apical pneumothoraces. IMPRESSION: 1. No acute cervical fracture or dislocation. 2. Expected appearance of cervical fusion hardware. Dictated by: Ry Huntley M.D. on 05/08/2023 at 13:39 Approved by: Ry Huntley M.D. on 05/08/2023 at 13:44
--- NOTE | 2023-05-08 12:52 | ED_ITS ---
HPI - Dizziness <Jaspal Araujo MD - Last Filed: 05/17/23 09:13> General Chief Complaint: Weakness Stated Complaint: diffuculity walking/standing/has hit head T-1 Time Seen by Provider: 05/08/23 12:18 Source: patient and family Mode of arrival: Wheelchair History of Present Illness HPI Narrative: Patient here with complains of constant dizziness for the past couple of weeks. Has fallen 7 times. Most recently seen here April 27, 2023 for the same complaint. Last night got very dizzy off balance. Fell down hit her head no loss of consciousness. Yesterday got very dizzy off balance and fell to the floor. Did hit the back of her head. History of cervical spine surgery. Complains of bilateral pelvis pain. Patient in no distress. Denies any recent illness nausea vomiting diarrhea or black or bloody stools. Related Data Home Medications Medication Instructions Recorded Confirmed albuterol sulfate 90 mcg/actuation 2 puff inhalation QID 08/22/20 05/08/23 aerosol inhaler duloxetine 20 mg capsule,delayed 40 mg PO DAILY 05/08/23 05/08/23 release gabapentin 300 mg capsule 300 mg PO QID 05/08/23 05/08/23 (Neurontin) naltrexone 50 mg tablet 50 mg PO BID 05/08/23 05/08/23 Previous Rx's Medication Instructions Recorded amitriptyline 50 mg tablet 50 mg PO BEDTIME #90 tabs 04/29/23 levothyroxine 25 mcg tablet 25 mcg PO DAILY #90 tabs 04/29/23 (Levoxyl) lisinopril 10 mg tablet 10 mg PO DAILY #90 tabs 04/29/23 senna leaf extract 8.7 mg chewable See Rx Instructions PO .COMPLEX 04/29/23 tablet #90 tabs simvastatin 20 mg tablet 20 mg PO BEDTIME #90 tabs 04/29/23 temazepam 7.5 mg capsule 7.5 mg PO BEDTIME PRN sleep #60 04/29/23 caps Allergies Allergy/AdvReac Type Severity Reaction Status Date / Time fentanyl Allergy Severe Anaphylaxis Verified 04/29/23 16:01 sumatriptan [From IMITREX] Allergy Severe FACIAL Verified 04/29/23 16:01 SWELLING, RASH propoxyphene [From DARVON] Allergy Intermediate NOT ABLE Verified 04/29/23 16:01 TO MOVE WELL AND FUNCTION codeine [CODEINE] AdvReac Mild NAUSEA Verified 04/29/23 16:01 oxycodone [OXYCODONE] AdvReac Mild NAUSEA Verified 04/29/23 16:01 sertraline [SERTRALINE] AdvReac Mild Verified 04/29/23 16:01 Review of Systems <Jaspal Araujo MD - Last Filed: 05/17/23 09:13> Review of Systems Narrative: GENERAL: negative chills, fatigue, malaise, fever, sweats. HEENT: negative sinus pain, ear pain, sore throat RESPIRATORY: negative dyspnea, cough CARDIOVASCULAR: negative chest pain, palpitations GASTROINTESTINAL: negative nausea, vomiting, abdominal pain : negative dysuria, frequency, hematuria MUSCULOSKELETAL: negative muscle or bony pain SKIN: negative rash, skin lesions NEUROLOGIC: Positive dizziness and weakness, negative headache negative numbness ROS Unobtainable: All systems reviewed & are unremarkable except as noted in HPI and below Patient History <Jaspal Araujo MD - Last Filed: 05/17/23 09:13> Medical History Ankle pain (~1987) Back pain Cataracts, bilateral (~2019) Cervical pain (neck) Chicken pox Chronic cough (~2021) Colon polyps (~2017) Depression (emotion) Eating disorder Elevated liver enzymes Fibromyalgia (~1989) Headache (~1955) Hemorrhoid (~1966) Hypertension (~2006) Hyperthyroidism (~1994) Hypothyroidism Irritable bowel syndrome (~1989) Measles (~1955) Migraines (~1966) Ovarian cyst (~2017) Post-traumatic stress disorder, chronic PTSD (post-traumatic stress disorder) Recurrent sinusitis (~2002) Sciatica associated with disorder of lumbar spine Seizure (~2018) Uterine cancer (~1981) Surgical History Anesthesia History of cholecystectomy (~2018) History of vein stripping (~1979) Previous back surgery (~2018) Status post hysterectomy (~1979) Family History Father Hypertension Stroke Parkinson's disease Mother Prostate cancer Hypertension Hyperlipidemia Grandfather Cancer Diabetes mellitus Hyperlipidemia Grandmother Hyperlipidemia Grandfather MVA (motor vehicle accident) Grandmother Alcoholism Social History household members: spouse Smoking Status: Never smoker alcohol intake: former Smoking Status: Never smoker alcohol intake frequency: 0-2 drinks per day Substance Use Type: does not use Exam <Jaspal Araujo MD - Last Filed: 05/17/23 09:13> Narrative Exam Narrative: GENERAL: in no distress, not toxic not dyspneic HEAD: Normocephalic. Nontender face and scalp EYES: Pupils equal round ENT: Mucous membranes moist. NECK: Trachea midline. No midline tenderness or step-off of the cervical spine CARDIOVASCULAR: Regular rate and rhythm RESPIRATORY: Clear to auscultation. Breath sounds equal bilaterally. No wheezes, rales, or rhonchi. GASTROINTESTINAL: Abdomen soft, non-tender EXTREMITIES: No gross deformities. BACK: No flank tenderness. NEURO: AOx4. Clear speech no facial droop light touch intact bilateral face hands and legs. Strong equal nursing executive. Steady Romberg. SKIN: Warm and dry PSYCH: Not anxious, is cooperative Initial Vital Signs Initial Vital Signs: Vital Signs Pulse Rate 78 05/08/23 12:16 Respiratory Rate 19 05/08/23 12:16 Pulse Oximetry 95 05/08/23 12:16 <Suleiman Aguilar DO - Last Filed: 05/08/23 22:35> Initial Vital Signs Initial Vital Signs: Vital Signs Pulse Rate 78 05/08/23 12:16 Respiratory Rate 19 05/08/23 12:16 Pulse Oximetry 95 05/08/23 12:16 Course <Jaspal Araujo MD - Last Filed: 05/17/23 09:13> Orders Ordered: Discontinued Medications Enoxaparin Sodium (Enoxaparin 30 Mg/0.3 Ml Syringe) 30 mg SUBCUT DAILY [facility] Last Admin: 05/09/23 08:34 Dose: 30 mg Documented By: CLL Sodium Chloride (Normal Saline 0.9%) 1,000 mls @ 1,000 mls/hr IV BOLUS ONE Stop: 05/08/23 15:02 Last Infusion: 05/08/23 14:31 Dose: Infused Documented By: Admin: 05/08/23 13:28 Dose: 1,000 mls/hr Documented By: AMV Sodium Chloride (Normal Saline 0.9%) 1,000 mls @ 1,000 mls/hr IV BOLUS ONE Stop: 05/08/23 15:21 Last Infusion: 05/08/23 16:56 Dose: Infused Documented By: Admin: 05/08/23 14:39 Dose: 500 mls/hr Documented By: GARFIELD Lactated Ringer's (Lactated Ringers) 1,000 mls @ 100 mls/hr IV CONT ALICIA Last Admin: 05/09/23 09:00 Dose: 100 mls/hr Documented By: Infusion: 05/09/23 08:45 Dose: Infused Documented By: Admin: 05/08/23 22:45 Dose: 100 mls/hr Documented By: FLORA Sodium Chloride (Normal Saline 0.9%) 1,000 mls @ 100 mls/hr IV CONT ALICIA Stop: 05/09/23 23:44 Levothyroxine Sodium (Levothyroxine 25 Mcg Tablet) 25 mcg PO 0600 ALICIA Last Admin: 05/09/23 06:45 Dose: 25 mcg Documented By: FLORA Melatonin (Melatonin 3 Mg Tablet) 6 mg PO BEDTIME [facility] Melatonin (Melatonin 3 Mg Tablet) 6 mg PO NOW ONE Stop: 05/09/23 02:46 Last Admin: 05/09/23 03:17 Dose: 6 mg Documented By: FLORA Naloxone HCl (Naloxone 0.4 Mg/Ml Vial) 0.2 mg IV Q2MIN PRN PRN Reason: Opiate Reversal Vital Signs Vital signs: Vital Signs - 8 hr 05/08/23 14:30 05/08/23 14:30 05/08/23 14:40 Pulse Rate 76 Respiratory Rate 21 Blood Pressure 99/54 L 97/53 L Pulse Oximetry 98 05/08/23 14:40 05/08/23 14:50 05/08/23 14:50 Pulse Rate 79 75 Respiratory Rate 23 21 Blood Pressure 102/52 L Pulse Oximetry 95 94 05/08/23 15:00 05/08/23 15:00 05/08/23 15:10 Pulse Rate 74 Respiratory Rate Blood Pressure 102/51 L 109/53 L Pulse Oximetry 92 05/08/23 15:10 05/08/23 15:20 05/08/23 15:30 Pulse Rate 73 71 78 Respiratory Rate 21 Blood Pressure Pulse Oximetry 95 96 94 05/08/23 15:33 05/08/23 15:33 05/08/23 15:40 Pulse Rate 75 Respiratory Rate 21 Blood Pressure 142/63 H 113/54 L Pulse Oximetry 97 05/08/23 15:40 05/08/23 15:50 05/08/23 15:50 Pulse Rate 70 70 Respiratory Rate 19 14 Blood Pressure 115/57 L Pulse Oximetry 96 96 05/08/23 16:00 05/08/23 16:00 05/08/23 16:10 Pulse Rate 67 70 Respiratory Rate 15 23 Blood Pressure 128/59 L Pulse Oximetry 93 05/08/23 16:10 05/08/23 16:15 05/08/23 16:20 Pulse Rate 68 74 Respiratory Rate 28 H 23 Blood Pressure 120/57 L Pulse Oximetry 96 95 05/08/23 16:20 05/08/23 16:30 05/08/23 16:32 Pulse Rate 86 77 Respiratory Rate 22 21 Blood Pressure 134/69 Pulse Oximetry 94 97 05/08/23 16:32 05/08/23 16:41 05/08/23 16:41 Pulse Rate 68 Respiratory Rate 15 Blood Pressure 118/72 115/56 L Pulse Oximetry 93 05/08/23 16:45 05/08/23 16:50 05/08/23 16:50 Pulse Rate 70 69 Respiratory Rate 14 14 Blood Pressure 104/54 L Pulse Oximetry 93 93 05/08/23 17:00 05/08/23 17:00 05/08/23 17:10 Pulse Rate 71 Respiratory Rate 16 Blood Pressure 103/50 L 97/57 L Pulse Oximetry 92 05/08/23 17:10 05/08/23 17:15 05/08/23 17:21 Pulse Rate 71 72 72 Respiratory Rate 18 20 16 Blood Pressure Pulse Oximetry 95 94 92 05/08/23 17:21 05/08/23 17:30 05/08/23 17:30 Pulse Rate 71 Respiratory Rate 28 H Blood Pressure 127/68 109/72 Pulse Oximetry 93 05/08/23 17:45 05/08/23 18:00 05/08/23 18:15 Pulse Rate 87 70 73 Respiratory Rate 21 22 23 Blood Pressure Pulse Oximetry 91 94 95 05/08/23 18:30 05/08/23 18:33 05/08/23 18:41 Pulse Rate 83 75 Respiratory Rate 24 Blood Pressure 109/56 L Pulse Oximetry 95 05/08/23 18:41 05/08/23 18:45 05/08/23 18:50 Pulse Rate 75 Respiratory Rate 19 Blood Pressure 118/58 L 112/66 Pulse Oximetry 95 05/08/23 18:50 05/08/23 19:00 05/08/23 19:00 Pulse Rate 74 75 Respiratory Rate 24 25 H Blood Pressure 127/57 L Pulse Oximetry 05/08/23 19:10 05/08/23 19:10 05/08/23 19:15 Pulse Rate 74 76 Respiratory Rate 19 37 H Blood Pressure 118/58 L Pulse Oximetry 05/08/23 19:21 05/08/23 19:21 05/08/23 19:30 Pulse Rate 75 75 Respiratory Rate 31 H 28 H Blood Pressure 99/54 L Pulse Oximetry 05/08/23 19:31 05/08/23 19:31 05/08/23 19:45 Pulse Rate 74 84 Respiratory Rate 16 29 H Blood Pressure 137/70 Pulse Oximetry 96 05/08/23 19:50 05/08/23 19:50 05/08/23 20:00 Pulse Rate 76 79 Respiratory Rate 25 H 41 H Blood Pressure 123/64 Pulse Oximetry 95 98 05/08/23 20:11 05/08/23 20:11 Pulse Rate 75 Respiratory Rate 24 Blood Pressure 141/58 H Pulse Oximetry 93 <Suleiman Aguilar DO - Last Filed: 05/08/23 22:35> Orders Ordered: Discontinued Medications Enoxaparin Sodium (Enoxaparin 30 Mg/0.3 Ml Syringe) 30 mg SUBCUT DAILY [facility] Last Admin: 05/09/23 08:34 Dose: 30 mg Documented By: OBI Sodium Chloride (Normal Saline 0.9%) 1,000 mls @ 1,000 mls/hr IV BOLUS ONE Stop: 05/08/23 15:02 Last Infusion: 05/08/23 14:31 Dose: Infused Documented By: Admin: 05/08/23 13:28 Dose: 1,000 mls/hr Documented By: JASSI Sodium Chloride (Normal Saline 0.9%) 1,000 mls @ 1,000 mls/hr IV BOLUS ONE Stop: 05/08/23 15:21 Last Infusion: 05/08/23 16:56 Dose: Infused Documented By: AMMayra Admin: 05/08/23 14:39 Dose: 500 mls/hr Documented By: GARFIELD Lactated Ringer's (Lactated Ringers) 1,000 mls @ 100 mls/hr IV CONT ALICIA Last Admin: 05/09/23 09:00 Dose: 100 mls/hr Documented By: Infusion: 05/09/23 08:45 Dose: Infused Documented By: Admin: 05/08/23 22:45 Dose: 100 mls/hr Documented By: FLORA Sodium Chloride (Normal Saline 0.9%) 1,000 mls @ 100 mls/hr IV CONT ALICIA Stop: 05/09/23 23:44 Levothyroxine Sodium (Levothyroxine 25 Mcg Tablet) 25 mcg PO 0600 ALICIA Last Admin: 05/09/23 06:45 Dose: 25 mcg Documented By: FLORA Melatonin (Melatonin 3 Mg Tablet) 6 mg PO BEDTIME [facility] Melatonin (Melatonin 3 Mg Tablet) 6 mg PO NOW ONE Stop: 05/09/23 02:46 Last Admin: 05/09/23 03:17 Dose: 6 mg Documented By: FLORA Naloxone HCl (Naloxone 0.4 Mg/Ml Vial) 0.2 mg IV Q2MIN PRN PRN Reason: Opiate Reversal Vital Signs Vital signs: Vital Signs - 8 hr 05/08/23 14:30 05/08/23 14:30 05/08/23 14:40 Pulse Rate 76 Respiratory Rate 21 Blood Pressure 99/54 L 97/53 L Pulse Oximetry 98 05/08/23 14:40 05/08/23 14:50 05/08/23 14:50 Pulse Rate 79 75 Respiratory Rate 23 21 Blood Pressure 102/52 L Pulse Oximetry 95 94 05/08/23 15:00 05/08/23 15:00 05/08/23 15:10 Pulse Rate 74 Respiratory Rate Blood Pressure 102/51 L 109/53 L Pulse Oximetry 92 05/08/23 15:10 05/08/23 15:20 05/08/23 15:30 Pulse Rate 73 71 78 Respiratory Rate 21 Blood Pressure Pulse Oximetry 95 96 94 05/08/23 15:33 05/08/23 15:33 05/08/23 15:40 Pulse Rate 75 Respiratory Rate 21 Blood Pressure 142/63 H 113/54 L Pulse Oximetry 97 05/08/23 15:40 05/08/23 15:50 05/08/23 15:50 Pulse Rate 70 70 Respiratory Rate 19 14 Blood Pressure 115/57 L Pulse Oximetry 96 96 05/08/23 16:00 05/08/23 16:00 05/08/23 16:10 Pulse Rate 67 70 Respiratory Rate 15 23 Blood Pressure 128/59 L Pulse Oximetry 93 05/08/23 16:10 05/08/23 16:15 05/08/23 16:20 Pulse Rate 68 74 Respiratory Rate 28 H 23 Blood Pressure 120/57 L Pulse Oximetry 96 95 05/08/23 16:20 05/08/23 16:30 05/08/23 16:32 Pulse Rate 86 77 Respiratory Rate 22 21 Blood Pressure 134/69 Pulse Oximetry 94 97 05/08/23 16:32 05/08/23 16:41 05/08/23 16:41 Pulse Rate 68 Respiratory Rate 15 Blood Pressure 118/72 115/56 L Pulse Oximetry 93 05/08/23 16:45 05/08/23 16:50 05/08/23 16:50 Pulse Rate 70 69 Respiratory Rate 14 14 Blood Pressure 104/54 L Pulse Oximetry 93 93 05/08/23 17:00 05/08/23 17:00 05/08/23 17:10 Pulse Rate 71 Respiratory Rate 16 Blood Pressure 103/50 L 97/57 L Pulse Oximetry 92 05/08/23 17:10 05/08/23 17:15 05/08/23 17:21 Pulse Rate 71 72 72 Respiratory Rate 18 20 16 Blood Pressure Pulse Oximetry 95 94 92 05/08/23 17:21 05/08/23 17:30 05/08/23 17:30 Pulse Rate 71 Respiratory Rate 28 H Blood Pressure 127/68 109/72 Pulse Oximetry 93 05/08/23 17:45 05/08/23 18:00 05/08/23 18:15 Pulse Rate 87 70 73 Respiratory Rate 21 22 23 Blood Pressure Pulse Oximetry 91 94 95 05/08/23 18:30 05/08/23 18:33 05/08/23 18:41 Pulse Rate 83 75 Respiratory Rate 24 Blood Pressure 109/56 L Pulse Oximetry 95 05/08/23 18:41 05/08/23 18:45 05/08/23 18:50 Pulse Rate 75 Respiratory Rate 19 Blood Pressure 118/58 L 112/66 Pulse Oximetry 95 05/08/23 18:50 05/08/23 19:00 05/08/23 19:00 Pulse Rate 74 75 Respiratory Rate 24 25 H Blood Pressure 127/57 L Pulse Oximetry 05/08/23 19:10 05/08/23 19:10 05/08/23 19:15 Pulse Rate 74 76 Respiratory Rate 19 37 H Blood Pressure 118/58 L Pulse Oximetry 05/08/23 19:21 05/08/23 19:21 05/08/23 19:30 Pulse Rate 75 75 Respiratory Rate 31 H 28 H Blood Pressure 99/54 L Pulse Oximetry 05/08/23 19:31 05/08/23 19:31 05/08/23 19:45 Pulse Rate 74 84 Respiratory Rate 16 29 H Blood Pressure 137/70 Pulse Oximetry 96 05/08/23 19:50 05/08/23 19:50 05/08/23 20:00 Pulse Rate 76 79 Respiratory Rate 25 H 41 H Blood Pressure 123/64 Pulse Oximetry 95 98 05/08/23 20:11 05/08/23 20:11 Pulse Rate 75 Respiratory Rate 24 Blood Pressure 141/58 H Pulse Oximetry 93 MDM - Dizziness <Jaspal Araujo MD - Last Filed: 05/17/23 09:13> Lab Data 05/09/23 06:23 05/09/23 06:23 Labs: Lab Results 05/08/23 05/08/23 05/08/23 Range/Units 12:48 14:20 14:35 WBC 9.2 (4.5-11.0) X10^3/uL RBC 4.49 (4.0-5.2) X10^6/uL Hgb 13.6 (12.0-16.0) g/dL Hct 40.7 (36-46) % MCV 90.8 (80-100) fL MCH 30.4 (26-34) PG MCHC 33.5 (30-36) % RDW 14.3 (11.6-14.8) % Plt Count 231 (150-400) X10^3/uL Neut % (Auto) 61.3 (50-75) % Lymph % (Auto) 23.8 L (25-40) % [place] % (Auto) 12.0 (3-14) % Eos % (Auto) 2.1 (2-4) % Baso % (Auto) 0.8 (0-2) % Neut # (Auto) 5600 (9131-5078) /uL Lymph # (Auto) 2200 (9911-7994) /uL [place] # (Auto) 1100 H (0-900) /uL Eos # (Auto) 200 (0-450) /uL Baso # (Auto) 100 (0-100) /uL PT 11.8 (10.1-12.7) SECONDS INR 1.0 (0.9-1.3) APTT 29 (26-36) SECONDS Sodium 134 L (137-145) mmol/L Potassium 4.3 (3.4-5.1) mmol/L Chloride 97 L (98-107) mmol/L Carbon Dioxide 25 (22-32) mmol/L BUN 57 H (7-17) mg/dL Creatinine 2.76 H (0.52-1.04) mg/dL Estimated GFR 17 L (>60) mL/min BUN/Creatinine Ratio 20.7 (6-22) Glucose 115 H (80-110) mg/dL Lactate 1.8 1.3 (0.7-2.1) mmol/L Calcium 9.2 (8.4-10.2) mg/dL Magnesium 2.5 H (1.6-2.3) mg/dL Total Bilirubin 0.5 (0.2-1.3) mg/dL AST 23 (14-36) IU/L ALT 24 (<35) IU/L Alkaline Phosphatase 82 (38-126) U/L Total Creatine Kinase 82 (30-135) U/L Troponin I < 0.012 < 0.012 (0.01-0.034) ng/mL NT-Pro-B Natriuret Pep 49 (<450) pg/mL Total Protein 6.9 (6.3-8.2) g/dL Albumin 4.2 (3.5-5.0) g/dL Globulin 2.7 (1.7-4.1) g/dL Albumin/Globulin Ratio 1.6 (1.0-2.8) Lipase 84 (23-300) U/L Procalcitonin 0.09 (<0.5) ng/mL TSH 2.48 (0.47-4.68) uIU/mL Urine Color Yellow Urine Appearance Clear Urine pH 5.5 (4.5-8.0) Ur Specific [place] 1.010 (1.000-1.035) Urine Protein Negative (Negative) Urine Glucose (UA) Negative (Negative) g/dL Urine Ketones Negative (NEGATIVE) Urine Occult Blood Negative (Negative) Urine Nitrate Negative (Negative) Urine Bilirubin Negative (NEGATIVE) Urine Urobilinogen 0.2 (0.2) E.U./dL Ur Leukocyte Esterase 1+ H (NEGATIVE) Urine RBC None seen (0-5/HPF) Urine WBC 0-1/hpf (0-5/HPF) Ur Squamous Epith Cells 0-1 /hpf (0-5/HPF) Urine Bacteria None seen (None) Ur Culture Indicated? Specimen cultured 05/08/23 Range/Units 18:48 WBC (4.5-11.0) X10^3/uL RBC (4.0-5.2) X10^6/uL Hgb (12.0-16.0) g/dL Hct (36-46) % MCV (80-100) fL MCH (26-34) PG MCHC (30-36) % RDW (11.6-14.8) % Plt Count (150-400) X10^3/uL Neut % (Auto) (50-75) % Lymph % (Auto) (25-40) % [place] % (Auto) (3-14) % Eos % (Auto) (2-4) % Baso % (Auto) (0-2) % Neut # (Auto) (9761-6721) /uL Lymph # (Auto) (6946-9618) /uL [place] # (Auto) (0-900) /uL Eos # (Auto) (0-450) /uL Baso # (Auto) (0-100) /uL PT (10.1-12.7) SECONDS INR (0.9-1.3) APTT (26-36) SECONDS Sodium 136 L (137-145) mmol/L Potassium 4.3 (3.4-5.1) mmol/L Chloride 103 (98-107) mmol/L Carbon Dioxide 27 (22-32) mmol/L BUN 50 H (7-17) mg/dL Creatinine 2.06 H (0.52-1.04) mg/dL Estimated GFR 24 L (>60) mL/min BUN/Creatinine Ratio 24.3 H (6-22) Glucose 100 (80-110) mg/dL Lactate (0.7-2.1) mmol/L Calcium 8.6 (8.4-10.2) mg/dL Magnesium (1.6-2.3) mg/dL Total Bilirubin (0.2-1.3) mg/dL AST (14-36) IU/L ALT (<35) IU/L Alkaline Phosphatase (38-126) U/L Total Creatine Kinase (30-135) U/L Troponin I (0.01-0.034) ng/mL NT-Pro-B Natriuret Pep (<450) pg/mL Total Protein (6.3-8.2) g/dL Albumin (3.5-5.0) g/dL Globulin (1.7-4.1) g/dL Albumin/Globulin Ratio (1.0-2.8) Lipase (23-300) U/L Procalcitonin (<0.5) ng/mL TSH (0.47-4.68) uIU/mL Urine Color Urine Appearance Urine pH (4.5-8.0) Ur Specific [place] (1.000-1.035) Urine Protein (Negative) Urine Glucose (UA) (Negative) g/dL Urine Ketones (NEGATIVE) Urine Occult Blood (Negative) Urine Nitrate (Negative) Urine Bilirubin (NEGATIVE) Urine Urobilinogen (0.2) E.U./dL Ur Leukocyte Esterase (NEGATIVE) Urine RBC (0-5/HPF) Urine WBC (0-5/HPF) Ur Squamous Epith Cells (0-5/HPF) Urine Bacteria (None) Ur Culture Indicated? Imaging Data Chest x-ray: Radiologist's Impression: [address] [address] XRay Report Signed Patient: Blanca Stockton MR#: [id number] : 1945 Acct:[id number] Age/Sex: 78 / F Date of Service: 05/08/23 Loc: ED Accession Number: [id number] ?? Procedure: XR chest 1V Ordering Provider: Jaspal Araujo MD PROCEDURE:? XR CHEST 1V ? INDICATIONS:? chest pain ? TECHNIQUE:? One view of the chest was acquired.? ? COMPARISON:? [facility], GOLD, XR CHEST 2V, 04/27/2023, 12:43.? [facility], CR, XR CHEST 1V, 04/27/2023, 11:25. ? FINDINGS:? ? Surgical changes and devices:? None.? ? Lungs and pleura:? Lungs are clear.? No pleural effusions or pneumothorax.? Low lung volumes.? ? Mediastinum:? Mediastinal contours appear normal.? Heart size is normal.? ? Bones and chest wall:? No suspicious bony lesions.? Overlying soft tissues appear unremarkable.? ? ? IMPRESSION:? Portable chest within normal limits for age. ? ? Dictated by: Braxotn Brown M.D. on 05/08/2023 at 12:51 ? ? Approved by: Braxton Brown M.D. on 05/08/2023 at 12:52 ? CT scan - head: Radiologist's Impression: [address] [address] [address] Scan Report Signed Patient: Blanca Stockton MR#: [id number] : 1945 Acct:[id number] Age/Sex: 78 / F Date of Service: 05/08/23 Loc: ED Accession Number: [id number] ?? Procedure: CT head/brain wo con Ordering Provider: Jaspal Araujo MD PROCEDURE:? CT HEAD/BRAIN WO CON ? INDICATIONS:? fall, hit head, no focal weakness. ? TECHNIQUE:? Noncontrast 4.5 mm thick angled axial sections acquired from the foramen magnum to the vertex, with coronal and sagittal reformats.? For radiation dose reduction, the following was used:? automated exposure control, adjustment of mA and/or kV according to patient size.? ? COMPARISON:? [facility], CT, CT HEAD/BRAIN WO CON, 04/27/2023, 11:59. ? FINDINGS:? Image quality:? Excellent.? ? CSF spaces:? Basal cisterns are patent.? No extra-axial fluid collections.? The ventricles are symmetric in size and shape.? ? Brain:? No intracranial bleeds or masses.? There is cerebral volume loss for age, with resultant ventricular and sulcal prominence.? Brain parenchyma is normal in appearance for patient age. ? Skull and face:? Calvarium and visualized facial bones appear intact, without suspicious lesions.? ? Sinuses:? Visualized sinuses and mastoids are clear.? ? IMPRESSION:? Negative head CT for patient age.? No acute intracranial abnormality. ? ? Dictated by: Ry Huntley M.D. on 05/08/2023 at 13:38 ? ? Approved by: Ry Huntley M.D. on 05/08/2023 at 13:39 ? Extremity x-ray #1: Radiologist's Impression: [address] [address] XRay Report Signed Patient: Blanca Stockton MR#: [id number] : 1945 Acct:[id number] Age/Sex: 78 / F Date of Service: 05/08/23 Loc: ED Accession Number: [id number] ?? Procedure: XR pelvis 1-2V Ordering Provider: Jaspal Araujo MD PROCEDURE:? XR PELVIS 1-2V ? INDICATIONS:? Fall/pain ? TECHNIQUE:? Normal 1 view(s) of the pelvis acquired.? ? COMPARISON:? None. ? FINDINGS:? ? Bones:? Mild bilateral hip degenerative changes.? No displaced fracture or dislocation is identified. ? Soft tissues:? Surgical clips projecting over lower pelvis. ? IMPRESSION:? Mild bilateral hip degenerative changes.? No displaced fracture or dislocation.? If there is high concern for occult injury, consider repeat radiography or cross-sectional imaging. ? ? Dictated by: Carlos Wilson M.D. on 05/08/2023 at 13:33 ? ? Approved by: Carlos Wilson M.D. on 05/08/2023 at 13:34 ? CT - cervical spine: Radiologist's Impression: [address] [address] [address] Scan Report Signed Patient: Blanca Stockton MR#: [id number] : 1945 Acct:[id number] Age/Sex: 78 / F Date of Service: 05/08/23 Loc: ED Accession Number: [id number] ?? Procedure: CT cervical spine wo con Ordering Provider: Jaspal Araujo MD ROCEDURE:? CT CERVICAL SPINE WO CON ? INDICATIONS:? fall, hit head, no focal weakness. ? TECHNIQUE:? Noncontrast 3 mm thick sections acquired from the skull base to the T4 level.? Sagittal and coronal reformats were then constructed.? For radiation dose reduction, the following was used:? automated exposure control, adjustment of mA and/or kV according to patient size.? ? COMPARISON:? [facility], CT, C-SPINE WITHOUT CONTRAST, 06/25/2017, 2:54. ? FINDINGS:? Image quality:? Excellent.? ? Bones:? No fractures or dislocations.? Visualized superior ribs are intact.? Expected appearance of surgical hardware post ACDF at C4 through C6 with anterior plate and screw fixation and interbody spacer placement.? No evidence of hardware failure or loosening.? Lower cervical facet arthropathy. ? Soft tissues:? Prevertebral soft tissues are normal in thickness.? No paravertebral hematomas.? No apical pneumothoraces.? ? ? IMPRESSION:? ? 1. No acute cervical fracture or dislocation. ? 2. Expected appearance of cervical fusion hardware.? Dictated by: Ry Huntley M.D. on 05/08/2023 at 13:39 ? ? Approved by: Ry Huntley M.D. on 05/08/2023 at 13:44 ? [facility] Narrative Medical decision making narrative: Patient here with complains of constant dizziness for the past couple of weeks. Has fallen 7 times. Most recently seen here April 27, 2023 for the same complaint. Last night got very dizzy off balance. Fell down hit her head no loss of consciousness. Yesterday got very dizzy off balance and fell to the floor. Did hit the back of her head. History of cervical spine surgery. Complains of bilateral pelvis pain. Patient in no distress. Denies any recent illness nausea vomiting diarrhea or black or bloody stools. After history and exam CBC CMP EKG troponin urinalysis CT head CT cervical spine x-ray pelvis [facility] CC: Fall/dizzy Complicating co-morbidities: Not on blood thinners Data collected from: Patient and Medical records reviewed: ER visit here April 27, 2023 Differential considered: Includes but not limited to hip fracture hip dislocation hip contusion vertigo anemia TIA stroke Exam documented above, pertinent findings include: Tremulous hands and fingers on exam Lab Test results independently reviewed as above. Pertinent findings: WBC 9.2 hemoglobin 13.6 Sodium 134 potassium 4.3 bicarb 25 BUN 57 creatinine 2.76 GFR 17 magnesium 2.5 troponin less than 0.012 AST 23 ALT 24 Independently reviewed EKG sinus rhythm rate [address] elevation or depression Imaging studies independently reviewed: CT head CT cervical spine pelvis x-ray no acute finding Chest x-ray no acute finding Consultations: Treatments: Normal saline 2 L Re-evaluations: 5:57 p.m.. Spoke with patient and . She states feels much better after normal saline. She states 1 of her medication is a diuretic and she is not want to take that anymore. Is causing her to urinate a lot. This is likely the source of her renal function/prerenal/dehydration. MRI is pending Discussion: Diagnosis: 6:00 p.m. Van: Sign out to Dr Aguilar, MRI brain is pending <Suleiman Aguilar, DO - Last Filed: 05/08/23 22:35> Lab Data Labs: Lab Results 05/08/23 05/08/23 05/08/23 Range/Units 12:48 14:20 14:35 WBC 9.2 (4.5-11.0) X10^3/uL RBC 4.49 (4.0-5.2) X10^6/uL Hgb 13.6 (12.0-16.0) g/dL Hct 40.7 (36-46) % MCV 90.8 (80-100) fL MCH 30.4 (26-34) PG MCHC 33.5 (30-36) % RDW 14.3 (11.6-14.8) % Plt Count 231 (150-400) X10^3/uL Neut % (Auto) 61.3 (50-75) % Lymph % (Auto) 23.8 L (25-40) % [place] % (Auto) 12.0 (3-14) % Eos % (Auto) 2.1 (2-4) % Baso % (Auto) 0.8 (0-2) % Neut # (Auto) 5600 (4018-6300) /uL Lymph # (Auto) 2200 (8797-9672) /uL [place] # (Auto) 1100 H (0-900) /uL Eos # (Auto) 200 (0-450) /uL Baso # (Auto) 100 (0-100) /uL PT 11.8 (10.1-12.7) SECONDS INR 1.0 (0.9-1.3) APTT 29 (26-36) SECONDS Sodium 134 L (137-145) mmol/L Potassium 4.3 (3.4-5.1) mmol/L Chloride 97 L (98-107) mmol/L Carbon Dioxide 25 (22-32) mmol/L BUN 57 H (7-17) mg/dL Creatinine 2.76 H (0.52-1.04) mg/dL Estimated GFR 17 L (>60) mL/min BUN/Creatinine Ratio 20.7 (6-22) Glucose 115 H (80-110) mg/dL Lactate 1.8 1.3 (0.7-2.1) mmol/L Calcium 9.2 (8.4-10.2) mg/dL Magnesium 2.5 H (1.6-2.3) mg/dL Total Bilirubin 0.5 (0.2-1.3) mg/dL AST 23 (14-36) IU/L ALT 24 (<35) IU/L Alkaline Phosphatase 82 (38-126) U/L Total Creatine Kinase 82 (30-135) U/L Troponin I < 0.012 < 0.012 (0.01-0.034) ng/mL NT-Pro-B Natriuret Pep 49 (<450) pg/mL Total Protein 6.9 (6.3-8.2) g/dL Albumin 4.2 (3.5-5.0) g/dL Globulin 2.7 (1.7-4.1) g/dL Albumin/Globulin Ratio 1.6 (1.0-2.8) Lipase 84 (23-300) U/L Procalcitonin 0.09 (<0.5) ng/mL TSH 2.48 (0.47-4.68) uIU/mL Urine Color Yellow Urine Appearance Clear Urine pH 5.5 (4.5-8.0) Ur Specific [place] 1.010 (1.000-1.035) Urine Protein Negative (Negative) Urine Glucose (UA) Negative (Negative) g/dL Urine Ketones Negative (NEGATIVE) Urine Occult Blood Negative (Negative) Urine Nitrate Negative (Negative) Urine Bilirubin Negative (NEGATIVE) Urine Urobilinogen 0.2 (0.2) E.U./dL Ur Leukocyte Esterase 1+ H (NEGATIVE) Urine RBC None seen (0-5/HPF) Urine WBC 0-1/hpf (0-5/HPF) Ur Squamous Epith Cells 0-1 /hpf (0-5/HPF) Urine Bacteria None seen (None) Ur Culture Indicated? Specimen cultured 05/08/23 Range/Units 18:48 WBC (4.5-11.0) X10^3/uL RBC (4.0-5.2) X10^6/uL Hgb (12.0-16.0) g/dL Hct (36-46) % MCV (80-100) fL MCH (26-34) PG MCHC (30-36) % RDW (11.6-14.8) % Plt Count (150-400) X10^3/uL Neut % (Auto) (50-75) % Lymph % (Auto) (25-40) % [place] % (Auto) (3-14) % Eos % (Auto) (2-4) % Baso % (Auto) (0-2) % Neut # (Auto) (2288-8029) /uL Lymph # (Auto) (6094-2073) /uL [place] # (Auto) (0-900) /uL Eos # (Auto) (0-450) /uL Baso # (Auto) (0-100) /uL PT (10.1-12.7) SECONDS INR (0.9-1.3) APTT (26-36) SECONDS Sodium 136 L (137-145) mmol/L Potassium 4.3 (3.4-5.1) mmol/L Chloride 103 (98-107) mmol/L Carbon Dioxide 27 (22-32) mmol/L BUN 50 H (7-17) mg/dL Creatinine 2.06 H (0.52-1.04) mg/dL Estimated GFR 24 L (>60) mL/min BUN/Creatinine Ratio 24.3 H (6-22) Glucose 100 (80-110) mg/dL Lactate (0.7-2.1) mmol/L Calcium 8.6 (8.4-10.2) mg/dL Magnesium (1.6-2.3) mg/dL Total Bilirubin (0.2-1.3) mg/dL AST (14-36) IU/L ALT (<35) IU/L Alkaline Phosphatase (38-126) U/L Total Creatine Kinase (30-135) U/L Troponin I (0.01-0.034) ng/mL NT-Pro-B Natriuret Pep (<450) pg/mL Total Protein (6.3-8.2) g/dL Albumin (3.5-5.0) g/dL Globulin (1.7-4.1) g/dL Albumin/Globulin Ratio (1.0-2.8) Lipase (23-300) U/L Procalcitonin (<0.5) ng/mL TSH (0.47-4.68) uIU/mL Urine Color Urine Appearance Urine pH (4.5-8.0) Ur Specific [place] (1.000-1.035) Urine Protein (Negative) Urine Glucose (UA) (Negative) g/dL Urine Ketones (NEGATIVE) Urine Occult Blood (Negative) Urine Nitrate (Negative) Urine Bilirubin (NEGATIVE) Urine Urobilinogen (0.2) E.U./dL Ur Leukocyte Esterase (NEGATIVE) Urine RBC (0-5/HPF) Urine WBC (0-5/HPF) Ur Squamous Epith Cells (0-5/HPF) Urine Bacteria (None) Ur Culture Indicated? [facility] Narrative Medical decision making narrative: Patient here with complains of constant dizziness for the past couple of weeks. Has fallen 7 times. Most recently seen here April 27, 2023 for the same complaint. Last night got very dizzy off balance. Fell down hit her head no loss of consciousness. Yesterday got very dizzy off balance and fell to the floor. Did hit the back of her head. History of cervical spine surgery. Complains of bilateral pelvis pain. Patient in no distress. Denies any recent illness nausea vomiting diarrhea or black or bloody stools. After history and exam CBC CMP EKG troponin urinalysis CT head CT cervical spine x-ray pelvis [facility] CC: Fall/dizzy Complicating co-morbidities: Not on blood thinners Data collected from: Patient and Medical records reviewed: ER visit here April 27, 2023 Differential considered: Includes but not limited to hip fracture hip dislocation hip contusion vertigo anemia TIA stroke Exam documented above, pertinent findings include: Tremulous hands and fingers on exam Lab Test results independently reviewed as above. Pertinent findings: WBC 9.2 hemoglobin 13.6 Sodium 134 potassium 4.3 bicarb 25 BUN 57 creatinine 2.76 GFR 17 magnesium 2.5 troponin less than 0.012 AST 23 ALT 24 Independently reviewed EKG sinus rhythm rate [address] elevation or depression Imaging studies independently reviewed: CT head CT cervical spine pelvis x-ray no acute finding Chest x-ray no acute finding Consultations: Treatments: Normal saline 2 L Re-evaluations: 5:57 p.m.. Spoke with patient and . She states feels much better after normal saline. She states 1 of her medication is a diuretic and she is not want to take that anymore. Is causing her to urinate a lot. This is likely the source of her renal function/prerenal/dehydration. MRI is pending Discussion: Diagnosis: 6:00 p.m. Van: Sign out to Dr Aguilar, MRI brain is pending [1800] (Jeff) Patient received in sign out from [Van]. I have reviewed the clinical course and performed an independent history and physical exam. Patient is feeling somewhat better after fluids, her vital signs are stabilized and there is some improvement in her renal function but still a marked acute injury is noted. There is no obstructive process. The acute kidney injury is likely prerenal but given recent use of antibiotics there was some question as to whether not there is an intrinsic injury is unclear. Furthermore her dizziness has been persisting in in elements salves ataxic and not clearly positional raising the question of the possibility of a posterior circulation abnormality. She had been scheduled for an MRI today but given her persistent low blood pressures and concern for more severe underlying diagnosis that study was canceled. Patient will require hospitalization for further stabilization and characterization of her illness. Discussed with hospitalist, Dr. Messer who happily accepts. Patient and family understand and agree with the diagnosis and plan Discharge Plan Departure Patient Disposition: Admitted As Inpatient Clinical Impression: Ataxia, Acute kidney injury Admit Date/Time: 05/08/23 20:13 Admit Provider: Nils Messer
--- NOTE | 2023-05-08 12:52 | DI.MRI.S_ITS ---
PROCEDURE: MR HEAD/BRAIN WO CON INDICATIONS: Dizziness/attack TECHNIQUE: Non-contrast axial T1 spin echo, axial T2 fast spin echo, sagittal and axial FLAIR, coronal T2 fast spin echo, axial gradient echo, axial diffusion and ADC through the brain. COMPARISON: [facility], CT, CT HEAD/BRAIN WO CON, 05/08/2023, 12:39. FINDINGS: Image quality: Excellent. CSF spaces: Ventricles appear symmetric in size and shape. A 4 x 4 x 5 mm mass is seen at the superolateral aspect of the left lateral ventricular body (17/9 and 15/7). Basal cisterns are patent. No extra-axial fluid collections. Brain: No acute intracranial hemorrhage or mass effect. There is cerebral volume loss for age. There are periventricular and deep white matter chronic small vessel ischemic changes. Brainstem appears normal. Diffusion-weighted images show no acute ischemic insults. No chronic ischemic insults. Normal intravascular flow voids are present. Skull and face: Calvarial bone marrow is normal in signal. Thinning of the intra-ocular lenses is consistent with prior cataracts/cataract surgery. Sinuses: Partial opacification of the right anterior ethmoid air cells. The paranasal sinuses are otherwise clear. The mastoid air cells are clear. IMPRESSION: 1. No acute intracranial hemorrhage or recent infarct. 2. Mild chronic microvascular ischemic changes. 3. Possible 5 mm intraventricular mass at the body of the left lateral ventricle, which is of uncertain etiology although a benign or malignant neoplasm is not excluded. Recommend follow-up brain MRI with and without contrast for further characterization. Approved by: Shree Parra M.D. on 05/09/2023 at 11:19
--- NOTE | 2023-05-08 12:53 | DI.RAD.S_ITS ---
PROCEDURE: XR PELVIS 1-2V INDICATIONS: Fall/pain TECHNIQUE: Normal 1 view(s) of the pelvis acquired. COMPARISON: None. FINDINGS: Bones: Mild bilateral hip degenerative changes. No displaced fracture or dislocation is identified. Soft tissues: Surgical clips projecting over lower pelvis. IMPRESSION: Mild bilateral hip degenerative changes. No displaced fracture or dislocation. If there is high concern for occult injury, consider repeat radiography or cross-sectional imaging. Dictated by: Carlos Wilson M.D. on 05/08/2023 at 13:33 Approved by: Carlos Wilson M.D. on 05/08/2023 at 13:34
[2023-05-08 12:56] LABS: Add Manual Diff / Slide Review NO; Basophils Absolute Auto 100 /uL (0-100); Basophils Percent Auto 0.8 % (0-2); Eosinophils Absolute Auto 200 /uL (0-450); Eosinophils Percent Auto 2.1 % (2-4); Hematocrit 40.7 % (36-46); Hemoglobin 13.6 g/dL (12.0-16.0); Lymphocytes Absolute Auto 2200 /uL (1100-4500); Lymphocytes Percent Auto 23.8 % (25-40); Mean Corpuscular HGB Conc 33.5 % (30-36); Mean Corpuscular Hemoglobin 30.4 PG (26-34); Mean Corpuscular Volume 90.8 fL (80-100); Monocytes Absolute Auto 1100 /uL (0-900); Neutrophils Absolute Auto 5600 /uL (1500-7000); Neutrophils Percent Auto 61.3 % (50-75); Platelet Count 231 X10^3/uL (150-400); Red Blood Cell Count 4.49 X10^6/uL (4.0-5.2); Red Cell Distribution Width 14.3 % (11.6-14.8); White Blood Cell Count 9.2 X10^3/uL (4.5-11.0)
[2023-05-08 13:02] LABS: Prothrombin Time 11.8 SECONDS (10.1-12.7)
[2023-05-08 13:05] LABS: PTT Partial Thromboplastin Tim 29 SECONDS (26-36)
[2023-05-08 13:08] LABS: Alanine Aminotransferase 24 IU/L (<35); Albumin 4.2 g/dL (3.5-5.0); Albumin Globulin Ratio 1.6 (1.0-2.8); Alkaline Phosphatase 82 U/L (38-126); Aspartate Aminotransferase 23 IU/L (14-36); BUN Creatinine Ratio 20.7 (6-22); Bilirubin Total 0.5 mg/dL (0.2-1.3); Blood Urea Nitrogen 57 mg/dL (7-17); Calcium 9.2 mg/dL (8.4-10.2); Carbon Dioxide 25 mmol/L (22-32); Chloride 97 mmol/L (98-107); Creatine Kinase 82 U/L (30-135); Estimated Glomerular Filt Rate 17 mL/min (>60); Globulin 2.7 g/dL (1.7-4.1); Glucose 115 mg/dL (80-110); HEMOLYSIS < 15 (0-50); Lipase 84 U/L (23-300); Magnesium 2.5 mg/dL (1.6-2.3); Potassium 4.3 mmol/L (3.4-5.1); Sodium 134 mmol/L (137-145); Total Protein 6.9 g/dL (6.3-8.2)
[2023-05-08 13:19] LABS: Troponin I < 0.012 ng/mL (0.01-0.034)
[2023-05-08] MEDS: SODIUM CHLORIDE 0.9% 1,000 ML 1000 ML IV (13:28)
--- NOTE | 2023-05-08 13:58 | PC.NURSE ---
Holding Physical Therapy consult at this time r/t hypotension.
--- NOTE | 2023-05-08 14:01 | PC.NURSE ---
Pt completely a&Ox4, speaking clearly, no changes in mentation. Dr. Araujo aware of low BP. Pt getting 1 L NS infused and will re-evaluate
[2023-05-08] MEDS: SODIUM CHLORIDE 0.9% 1,000 ML 500 ML IV (14:39)
[2023-05-08 14:40] LABS: Lactate (Lactic Acid) 1.8 mmol/L (0.7-2.1)
[2023-05-08 14:42] LABS: TSH w/ Reflex to FT4 2.48 uIU/mL (0.47-4.68)
[2023-05-08 14:48] LABS: Appearance Urine UA CLEAR; Bilirubin Urine UA NEGATIVE (NEGATIVE); Color Urine UA YELLOW; Glucose Urine UA NEGATIVE (Negative); Ketones Urine UA NEGATIVE (NEGATIVE); Leukocyte Esterase Urine UA 1+ (NEGATIVE); Nitrite Urine UA NEGATIVE (Negative); Occult Blood Urine UA NEGATIVE (Negative); Protein Urine UA NEGATIVE (Negative); Urobilinogen Urine UA 0.2 E.U./dL (0.2)
[2023-05-08 14:49] LABS: Lactate (Lactic Acid) 1.3 mmol/L (0.7-2.1)
[2023-05-08 15:00] LABS: pH Urine UA 5.5 (4.5-8.0)
[2023-05-08 15:02] LABS: NT-proBNP (BNP-Adult 18+) 49 pg/mL (<450); Troponin I < 0.012 ng/mL (0.01-0.034)
[2023-05-08 15:07] LABS: Procalcitonin 0.09 ng/mL (<0.5)
[2023-05-08 15:07] LABS: Bacteria Urine None Seen; Culture Indicated Urine Specimen Cultured; RBC Urine None Seen (0-5/HPF); Squamous Epithelial Cell Urine 0-1 /HPF (0-5/HPF); WBC Urine 0-1/HPF (0-5/HPF)
--- NOTE | 2023-05-08 15:59 | PC.NURSE ---
Pt did well getting up to BSC
--- NOTE | 2023-05-08 16:05 | PC.NURSE ---
Pt will go to MRI around 1800 now that BP has stabilized
--- NOTE | 2023-05-08 18:06 | DI.US.S_ITS ---
PROCEDURE: US RENAL COMPLETE INDICATIONS: renal failure, obstructive uropathy? TECHNIQUE: Real-time scanning was performed of the kidneys and bladder, with image documentation. COMPARISON: None. FINDINGS: Kidneys: Right kidney measures 9 cm. Left kidney measures 10 cm. No hydronephrosis. No calcified stones identified. Normal cortical thicknesses. Bladder: Both ureteral jets are visualized. Postvoid residual 128 cc. Miscellaneous: No significant free fluid. IMPRESSION: Significant postvoid residual 128 cc. No hydronephrosis. Dictated by: Carlos Wilson M.D. on 05/08/2023 at 18:35 Approved by: Carlos Wilson M.D. on 05/08/2023 at 18:36
[2023-05-08 19:13] LABS: BUN Creatinine Ratio 24.3 (6-22); Blood Urea Nitrogen 50 mg/dL (7-17); Calcium 8.6 mg/dL (8.4-10.2); Carbon Dioxide 27 mmol/L (22-32); Chloride 103 mmol/L (98-107); Estimated Glomerular Filt Rate 24 mL/min (>60); Glucose 100 mg/dL (80-110); HEMOLYSIS < 15 (0-50); Potassium 4.3 mmol/L (3.4-5.1); Sodium 136 mmol/L (137-145)
--- NOTE | 2023-05-08 20:05 | PM.HP.1 ---
History of Present Illness History of Present Illness Chief complaint: diffuculity walking/standing/has hit head T-1 Narrative: Blanca flores is a very pleasant 78-year-old female patient with history of chronic neck pain with history of neck cervical spine fusion, hypothyroidism, hypertension, chronic lower extremity edema and insomnia. The patient was last in her usual state of health about 1 week ago. About 1 week ago, medication changes were made which the patient is unable to specifically describe. It does seem however that she was on losartan with or without amlodipine and was switched to lisinopril. For the past 1 week, she reports episodes of dizziness that are persistent. The dizziness is worse when going from lying down or sitting to standing position. The dizziness feels like she may almost pass out. The patient has been scared to participate in activity due to fear of falling. She states she did fall at home on 1 occasion and did not hit her head or neck. She arrived in the emergency room where she was hypotensive. A blood pressure of 85/50 was reported to me. ICU blood pressure of 99/54 documented in the ED record. The patient underwent a lab and clinical exam that was not consistent with sepsis. Lungs were clear. Urinalysis unremarkable. She also underwent a renal ultrasound that was unremarkable. Labs did show new onset acute kidney injury and a presenting creatinine of 2. She was given intravenous crystalloids in the emergency room. She denied having any increased sweating, fevers, chills, chest pains, shortness of breath, new joint pains or tenderness or rash. Denies having a cough or lower urinary tract symptoms. Due to MAGDA and hypotension felt to be due to polypharmacy and hypovolemia, this admission has been requested. After receiving IV fluids, on the medical floor, the patient is feeling significantly more comfortable and back to normal per her own report. Plan will be to continue hydration and recheck renal function in a.m. If returned to normal, anticipate discharge. If not, may need additional renal support with IV fluids. We will also need to make alterations to her antihypertensive medications. [facility] Medical History Ankle pain (~1987) Back pain Cataracts, bilateral (~2019) Cervical pain (neck) Chicken pox Chronic cough (~2021) Colon polyps (~2017) Depression (emotion) Eating disorder Elevated liver enzymes Fibromyalgia (~1989) Headache (~1955) Hemorrhoid (~1966) Hypertension (~2006) Hyperthyroidism (~1994) Hypothyroidism Irritable bowel syndrome (~1989) Measles (~1955) Migraines (~1966) Ovarian cyst (~2017) Post-traumatic stress disorder, chronic PTSD (post-traumatic stress disorder) Recurrent sinusitis (~2002) Sciatica associated with disorder of lumbar spine Seizure (~2018) Uterine cancer (~1981) Surgical History Anesthesia History of cholecystectomy (~2018) History of vein stripping (~1979) Previous back surgery (~2018) Status post hysterectomy (~1979) Family History Father Hypertension Stroke Parkinson's disease Mother Prostate cancer Hypertension Hyperlipidemia Grandfather Cancer Diabetes mellitus Hyperlipidemia Grandmother Hyperlipidemia Grandfather MVA (motor vehicle accident) Grandmother Alcoholism Social History household members: spouse Smoking Status: Never smoker alcohol intake: former Meds Home Medications and Allergies Home Medications Medication Instructions Recorded Confirmed Type albuterol sulfate 90 mcg/actuation 2 puff inhalation QID 08/22/20 05/08/23 History aerosol inhaler amitriptyline 50 mg tablet 50 mg PO BEDTIME #90 tabs 04/29/23 05/08/23 Rx furosemide 40 mg tablet 40 mg PO DAILY #90 tabs 04/29/23 05/08/23 Rx levothyroxine 25 mcg tablet 25 mcg PO DAILY #90 tabs 04/29/23 05/08/23 Rx (Levoxyl) lisinopril 10 mg tablet 10 mg PO DAILY #90 tabs 04/29/23 05/08/23 Rx senna leaf extract 8.7 mg chewable See Rx Instructions PO .COMPLEX 04/29/23 05/08/23 Rx tablet #90 tabs simvastatin 20 mg tablet 20 mg PO BEDTIME #90 tabs 04/29/23 05/08/23 Rx temazepam 7.5 mg capsule 7.5 mg PO BEDTIME PRN sleep #60 04/29/23 05/08/23 Rx caps duloxetine 20 mg capsule,delayed 40 mg PO DAILY 05/08/23 05/08/23 History release gabapentin 300 mg capsule 300 mg PO QID 05/08/23 05/08/23 History (Neurontin) naltrexone 50 mg tablet 50 mg PO BID 05/08/23 05/08/23 History Allergies Allergy/AdvReac Type Severity Reaction Status Date / Time fentanyl Allergy Severe Anaphylaxis Verified 04/29/23 16:01 sumatriptan [From IMITREX] Allergy Severe FACIAL Verified 04/29/23 16:01 SWELLING, RASH propoxyphene [From DARVON] Allergy Intermediate NOT ABLE Verified 04/29/23 16:01 TO MOVE WELL AND FUNCTION codeine [CODEINE] AdvReac Mild NAUSEA Verified 04/29/23 16:01 oxycodone [OXYCODONE] AdvReac Mild NAUSEA Verified 04/29/23 16:01 sertraline [SERTRALINE] AdvReac Mild Verified 04/29/23 16:01 Exam Vital Signs (past 8 hours): - 05/08/23 12:18 05/08/23 12:16 05/08/23 12:17 Temperature 98.3 F Pulse Rate 82 78 80 Respiratory Rate 16 19 24 Blood Pressure 117/61 Pulse Oximetry 94 95 93 Oxygen Delivery Method Room Air 05/08/23 12:17 05/08/23 12:30 05/08/23 13:00 Temperature Pulse Rate 70 Respiratory Rate 19 Blood Pressure 119/74 Pulse Oximetry 95 92 Oxygen Delivery Method 05/08/23 13:05 05/08/23 13:20 05/08/23 13:20 Temperature Pulse Rate 69 76 Respiratory Rate 18 19 Blood Pressure 98/54 L Pulse Oximetry 94 Oxygen Delivery Method 05/08/23 13:25 05/08/23 13:30 05/08/23 13:30 Temperature Pulse Rate 77 72 Respiratory Rate 15 17 Blood Pressure 80/45 L Pulse Oximetry 95 92 Oxygen Delivery Method 05/08/23 13:32 05/08/23 13:32 05/08/23 13:34 Temperature Pulse Rate 74 Respiratory Rate 22 Blood Pressure 80/49 L 89/52 L Pulse Oximetry 93 Oxygen Delivery Method 05/08/23 13:34 05/08/23 13:35 05/08/23 13:36 Temperature Pulse Rate 72 71 72 Respiratory Rate 15 22 18 Blood Pressure Pulse Oximetry 92 92 92 Oxygen Delivery Method 05/08/23 13:37 05/08/23 13:38 05/08/23 13:39 Temperature Pulse Rate 79 69 69 Respiratory Rate 21 19 18 Blood Pressure Pulse Oximetry 92 93 93 Oxygen Delivery Method 05/08/23 13:40 05/08/23 13:40 05/08/23 13:41 Temperature Pulse Rate 72 75 Respiratory Rate 17 16 Blood Pressure 87/48 L Pulse Oximetry 91 91 Oxygen Delivery Method 05/08/23 13:42 05/08/23 13:43 05/08/23 13:44 Temperature Pulse Rate 74 74 80 Respiratory Rate 17 23 Blood Pressure Pulse Oximetry 91 94 Oxygen Delivery Method 05/08/23 13:44 05/08/23 13:50 05/08/23 13:50 Temperature Pulse Rate 73 Respiratory Rate 22 Blood Pressure 92/50 L 86/50 L Pulse Oximetry 91 Oxygen Delivery Method 05/08/23 13:55 05/08/23 13:55 05/08/23 14:00 Temperature Pulse Rate 79 Respiratory Rate Blood Pressure 92/54 L 89/52 L Pulse Oximetry 93 Oxygen Delivery Method 05/08/23 14:00 05/08/23 14:10 05/08/23 14:10 Temperature Pulse Rate 71 72 Respiratory Rate 26 H 30 H Blood Pressure 82/45 L Pulse Oximetry 91 91 Oxygen Delivery Method 05/08/23 14:20 05/08/23 14:20 05/08/23 14:30 Temperature Pulse Rate 73 Respiratory Rate 27 H Blood Pressure 86/54 L 99/54 L Pulse Oximetry 95 Oxygen Delivery Method Room Air 05/08/23 14:30 05/08/23 14:40 05/08/23 14:40 Temperature Pulse Rate 76 79 Respiratory Rate 21 23 Blood Pressure 97/53 L Pulse Oximetry 98 95 Oxygen Delivery Method 05/08/23 14:50 05/08/23 14:50 05/08/23 15:00 Temperature Pulse Rate 75 Respiratory Rate 21 Blood Pressure 102/52 L 102/51 L Pulse Oximetry 94 Oxygen Delivery Method 05/08/23 15:00 05/08/23 15:10 05/08/23 15:10 Temperature Pulse Rate 74 73 Respiratory Rate Blood Pressure 109/53 L Pulse Oximetry 92 95 Oxygen Delivery Method 05/08/23 15:20 05/08/23 15:30 05/08/23 15:33 Temperature Pulse Rate 71 78 75 Respiratory Rate 21 21 Blood Pressure Pulse Oximetry 96 94 97 Oxygen Delivery Method 05/08/23 15:33 05/08/23 15:40 05/08/23 15:40 Temperature Pulse Rate 70 Respiratory Rate 19 Blood Pressure 142/63 H 113/54 L Pulse Oximetry 96 Oxygen Delivery Method 05/08/23 15:50 05/08/23 15:50 05/08/23 16:00 Temperature Pulse Rate 70 Respiratory Rate 14 Blood Pressure 115/57 L 128/59 L Pulse Oximetry 96 Oxygen Delivery Method 05/08/23 16:00 05/08/23 16:10 05/08/23 16:10 Temperature Pulse Rate 67 70 Respiratory Rate 15 23 Blood Pressure 120/57 L Pulse Oximetry 93 Oxygen Delivery Method 05/08/23 16:15 05/08/23 16:20 05/08/23 16:20 Temperature Pulse Rate 68 74 Respiratory Rate 28 H 23 Blood Pressure 134/69 Pulse Oximetry 96 95 Oxygen Delivery Method 05/08/23 16:30 05/08/23 16:32 05/08/23 16:32 Temperature Pulse Rate 86 77 Respiratory Rate 22 21 Blood Pressure 118/72 Pulse Oximetry 94 97 Oxygen Delivery Method 05/08/23 16:41 05/08/23 16:41 05/08/23 16:45 Temperature Pulse Rate 68 70 Respiratory Rate 15 14 Blood Pressure 115/56 L Pulse Oximetry 93 93 Oxygen Delivery Method 05/08/23 16:50 05/08/23 16:50 05/08/23 17:00 Temperature Pulse Rate 69 Respiratory Rate 14 Blood Pressure 104/54 L 103/50 L Pulse Oximetry 93 Oxygen Delivery Method 05/08/23 17:00 05/08/23 17:10 05/08/23 17:10 Temperature Pulse Rate 71 71 Respiratory Rate 16 18 Blood Pressure 97/57 L Pulse Oximetry 92 95 Oxygen Delivery Method 05/08/23 17:15 05/08/23 17:21 05/08/23 17:21 Temperature Pulse Rate 72 72 Respiratory Rate 20 16 Blood Pressure 127/68 Pulse Oximetry 94 92 Oxygen Delivery Method 05/08/23 17:30 05/08/23 17:30 05/08/23 17:45 Temperature Pulse Rate 71 87 Respiratory Rate 28 H 21 Blood Pressure 109/72 Pulse Oximetry 93 91 Oxygen Delivery Method 05/08/23 18:00 05/08/23 18:15 05/08/23 18:30 Temperature Pulse Rate 70 73 83 Respiratory Rate 22 23 Blood Pressure Pulse Oximetry 94 95 Oxygen Delivery Method 05/08/23 18:33 05/08/23 18:41 05/08/23 18:41 Temperature Pulse Rate 75 Respiratory Rate 24 Blood Pressure 109/56 L 118/58 L Pulse Oximetry 95 Oxygen Delivery Method 05/08/23 18:45 05/08/23 18:50 05/08/23 18:50 Temperature Pulse Rate 75 74 Respiratory Rate 19 24 Blood Pressure 112/66 Pulse Oximetry 95 Oxygen Delivery Method 05/08/23 19:00 05/08/23 19:00 05/08/23 19:10 Temperature Pulse Rate 75 Respiratory Rate 25 H Blood Pressure 127/57 L 118/58 L Pulse Oximetry Oxygen Delivery Method 05/08/23 19:10 05/08/23 19:15 05/08/23 19:21 Temperature Pulse Rate 74 76 75 Respiratory Rate 19 37 H 31 H Blood Pressure Pulse Oximetry Oxygen Delivery Method 05/08/23 19:21 05/08/23 19:30 05/08/23 19:31 Temperature Pulse Rate 75 Respiratory Rate 28 H Blood Pressure 99/54 L 137/70 Pulse Oximetry Oxygen Delivery Method 05/08/23 19:31 Temperature Pulse Rate 74 Respiratory Rate 16 Blood Pressure Pulse Oximetry Oxygen Delivery Method Oxygen Delivery Method Room Air Narrative Exam Narrative: Physical exam General exam the patient is conscious, cooperative and comfortable HEENT normocephalic atraumatic Neck exam supple Cardiovascular exam S1-S2 present tachycardic no murmur Lung exam bilateral equal expansion, clear bilaterally, no wheezing or distress, able to speak in full sentences Abdomen is soft, nontender, no guarding, no tenderness or rigidity. Bowel sounds are present throughout Neurological exam nonfocal Lower extremities are warm and well-perfused 2+ edema Objective Labs 05/08/23 12:48 05/08/23 18:48 Labs: Laboratory Results - last 24 hr 05/08/23 05/08/23 05/08/23 12:48 12:48 12:48 WBC 9.2 RBC 4.49 Hgb 13.6 Hct 40.7 MCV 90.8 MCH 30.4 MCHC 33.5 RDW 14.3 Plt Count 231 Neut % (Auto) 61.3 Lymph % (Auto) 23.8 L [place] % (Auto) 12.0 Eos % (Auto) 2.1 Baso % (Auto) 0.8 Neut # (Auto) 5600 Lymph # (Auto) 2200 [place] # (Auto) 1100 H Eos # (Auto) 200 Baso # (Auto) 100 PT 11.8 INR 1.0 APTT 29 Sodium 134 L Potassium 4.3 Chloride 97 L Carbon Dioxide 25 BUN 57 H Creatinine 2.76 H Estimated GFR 17 L BUN/Creatinine Ratio 20.7 Glucose 115 H Lactate Calcium 9.2 Magnesium 2.5 H Total Bilirubin 0.5 AST 23 ALT 24 Alkaline Phosphatase 82 Total Creatine Kinase 82 Troponin I < 0.012 NT-Pro-B Natriuret Pep Total Protein 6.9 Albumin 4.2 Globulin 2.7 Albumin/Globulin Ratio 1.6 Lipase 84 Procalcitonin TSH Urine Color Urine Appearance Urine pH Ur Specific [place] Urine Protein Urine Glucose (UA) Urine Ketones Urine Occult Blood Urine Nitrate Urine Bilirubin Urine Urobilinogen Ur Leukocyte Esterase Urine RBC Urine WBC Ur Squamous Epith Cells Urine Bacteria Ur Culture Indicated? 05/08/23 05/08/23 05/08/23 12:48 12:48 14:20 WBC RBC Hgb Hct MCV MCH MCHC RDW Plt Count Neut % (Auto) Lymph % (Auto) [place] % (Auto) Eos % (Auto) Baso % (Auto) Neut # (Auto) Lymph # (Auto) [place] # (Auto) Eos # (Auto) Baso # (Auto) PT INR APTT Sodium Potassium Chloride Carbon Dioxide BUN Creatinine Estimated GFR BUN/Creatinine Ratio Glucose Lactate 1.8 Calcium Magnesium Total Bilirubin AST ALT Alkaline Phosphatase Total Creatine Kinase Troponin I < 0.012 NT-Pro-B Natriuret Pep 49 Total Protein Albumin Globulin Albumin/Globulin Ratio Lipase Procalcitonin 0.09 TSH 2.48 Urine Color Urine Appearance Urine pH Ur Specific [place] Urine Protein Urine Glucose (UA) Urine Ketones Urine Occult Blood Urine Nitrate Urine Bilirubin Urine Urobilinogen Ur Leukocyte Esterase Urine RBC Urine WBC Ur Squamous Epith Cells Urine Bacteria Ur Culture Indicated? 05/08/23 05/08/23 05/08/23 14:20 14:35 18:48 WBC RBC Hgb Hct MCV MCH MCHC RDW Plt Count Neut % (Auto) Lymph % (Auto) [place] % (Auto) Eos % (Auto) Baso % (Auto) Neut # (Auto) Lymph # (Auto) [place] # (Auto) Eos # (Auto) Baso # (Auto) PT INR APTT Sodium 136 L Potassium 4.3 Chloride 103 Carbon Dioxide 27 BUN 50 H Creatinine 2.06 H Estimated GFR 24 L BUN/Creatinine Ratio 24.3 H Glucose 100 Lactate 1.3 Calcium 8.6 Magnesium Total Bilirubin AST ALT Alkaline Phosphatase Total Creatine Kinase Troponin I NT-Pro-B Natriuret Pep Total Protein Albumin Globulin Albumin/Globulin Ratio Lipase Procalcitonin TSH Urine Color Yellow Urine Appearance Clear Urine pH 5.5 Ur Specific [place] 1.010 Urine Protein Negative Urine Glucose (UA) Negative Urine Ketones Negative Urine Occult Blood Negative Urine Nitrate Negative Urine Bilirubin Negative Urine Urobilinogen 0.2 Ur Leukocyte Esterase 1+ H Urine RBC None seen Urine WBC 0-1/hpf Ur Squamous Epith Cells 0-1 /hpf Urine Bacteria None seen Ur Culture Indicated? Specimen cultured Assessment & Plan Assessment & Plan narrative: Acute Acute kidney injury in a presenting creatinine of 2.06. Etiology is hypotension caused by polypharmacy most notably: Lisinopril, amlodipine Mild hypovolemic hyponatremia sodium 136 POA 1 week of dizziness and lightheadedness. This is being attributed to hypotension from polypharmacy and hypovolemia. Will obtain MRI without contrast in a.m. of the brain to exclude any posterior circulation acute events. Chronic Hypothyroidism on levothyroxine Insomnia on temazepam Chronic neck pain on gabapentin, amitriptyline and duloxetine. History of cervical spine fusion procedure. Consults: None Code: Full DVT prophylaxis: Lovenox 30 Time Spent With Patient Time with patient: 70 minutes or more, with 50% spent counseling/coordinating
[2023-05-08] MEDS: LACTATED RINGERS 1,000 ML 100 ML IV (22:45)
[2023-05-09 02:26] VITALS: BP 118/67; PULSE 77; RESP 18; O2SAT 92
--- NOTE | 2023-05-09 02:29 | PC.ADMIT ---
[email or web address] Admission Note: Pt arrived to floor in no apparent cardiovascular or respiratory distress. Able to ambulate from wheelchair to bed without assistance. Denied dizziness, nausea, headache, blurred vision, diaphoresis, numbness or tingling, and chest pain. Alert and oriented. Able to state needs clearly. The patient,Blanca Stockton,78 y/o, was given written information regarding hospital policies, unit procedures and contact persons. Patient's smoking status: Never smoker. Vital Signs - 8 hr 05/08/23 18:30 05/08/23 18:33 05/08/23 18:41 Temperature Pulse Rate 83 75 Respiratory Rate 24 Blood Pressure 109/56 L Pulse Oximetry 95 Oxygen Delivery Method Oxygen Flow Rate 05/08/23 18:41 05/08/23 18:45 05/08/23 18:50 Temperature Pulse Rate 75 Respiratory Rate 19 Blood Pressure 118/58 L 112/66 Pulse Oximetry 95 Oxygen Delivery Method Oxygen Flow Rate 05/08/23 18:50 05/08/23 19:00 05/08/23 19:00 Temperature Pulse Rate 74 75 Respiratory Rate 24 25 H Blood Pressure 127/57 L Pulse Oximetry Oxygen Delivery Method Oxygen Flow Rate 05/08/23 19:10 05/08/23 19:10 05/08/23 19:15 Temperature Pulse Rate 74 76 Respiratory Rate 19 37 H Blood Pressure 118/58 L Pulse Oximetry Oxygen Delivery Method Oxygen Flow Rate 05/08/23 19:21 05/08/23 19:21 05/08/23 19:30 Temperature Pulse Rate 75 75 Respiratory Rate 31 H 28 H Blood Pressure 99/54 L Pulse Oximetry Oxygen Delivery Method Oxygen Flow Rate 05/08/23 19:31 05/08/23 19:31 05/08/23 19:45 Temperature Pulse Rate 74 84 Respiratory Rate 16 29 H Blood Pressure 137/70 Pulse Oximetry 96 Oxygen Delivery Method Oxygen Flow Rate 05/08/23 19:50 05/08/23 19:50 05/08/23 20:00 Temperature Pulse Rate 76 79 Respiratory Rate 25 H 41 H Blood Pressure 123/64 Pulse Oximetry 95 98 Oxygen Delivery Method Oxygen Flow Rate 05/08/23 20:11 05/08/23 20:11 05/08/23 20:15 Temperature Pulse Rate 75 76 Respiratory Rate 24 34 H Blood Pressure 141/58 H Pulse Oximetry 93 94 Oxygen Delivery Method Oxygen Flow Rate 05/08/23 20:21 05/08/23 20:21 05/08/23 20:30 Temperature Pulse Rate 80 78 Respiratory Rate 18 23 Blood Pressure 144/80 H Pulse Oximetry 91 91 Oxygen Delivery Method Oxygen Flow Rate 05/08/23 20:45 05/08/23 21:00 05/08/23 21:01 Temperature Pulse Rate 77 79 Respiratory Rate 16 27 H Blood Pressure 142/96 H Pulse Oximetry 93 91 Oxygen Delivery Method Oxygen Flow Rate 05/08/23 21:01 05/08/23 21:15 05/08/23 21:30 Temperature Pulse Rate 80 76 78 Respiratory Rate 36 H 32 H 31 H Blood Pressure Pulse Oximetry 92 94 Oxygen Delivery Method Oxygen Flow Rate 05/08/23 21:45 05/08/23 22:04 05/09/23 02:26 Temperature 96.7 F L Pulse Rate 78 77 Respiratory Rate 17 18 Blood Pressure 111/45 L 118/67 Pulse Oximetry 94 92 Oxygen Delivery Method Room Air Oxygen Flow Rate 0
[2023-05-09] MEDS: MELATONIN 3 MG TABLET 6 MG PO (03:17)
[2023-05-09 06:34] LABS: Add Manual Diff / Slide Review NO; Basophils Absolute Auto 0 /uL (0-100); Basophils Percent Auto 0.6 % (0-2); Eosinophils Absolute Auto 200 /uL (0-450); Eosinophils Percent Auto 2.3 % (2-4); Hematocrit 38.1 % (36-46); Hemoglobin 12.5 g/dL (12.0-16.0); Lymphocytes Absolute Auto 2500 /uL (1100-4500); Lymphocytes Percent Auto 31.1 % (25-40); Mean Corpuscular HGB Conc 32.9 % (30-36); Monocytes Absolute Auto 1100 /uL (0-900); Monocytes Percent Auto 13.3 % (3-14); Neutrophils Absolute Auto 4200 /uL (1500-7000); Neutrophils Percent Auto 52.7 % (50-75); Platelet Count 187 X10^3/uL (150-400); Red Blood Cell Count 4.19 X10^6/uL (4.0-5.2); Red Cell Distribution Width 14.3 % (11.6-14.8)
[2023-05-09 06:37] VITALS: BP 108/60; PULSE 75; RESP 17; O2SAT 100
[2023-05-09 06:45] LABS: Alanine Aminotransferase 22 IU/L (<35); Alkaline Phosphatase 80 U/L (38-126); Aspartate Aminotransferase 22 IU/L (14-36); Bilirubin Total 0.4 mg/dL (0.2-1.3); Calcium 8.8 mg/dL (8.4-10.2); Carbon Dioxide 27 mmol/L (22-32); Chloride 104 mmol/L (98-107); Glucose 90 mg/dL (80-110); HEMOLYSIS < 15 (0-50); Potassium 4.7 mmol/L (3.4-5.1); Sodium 137 mmol/L (137-145)
[2023-05-09] MEDS: LEVOTHYROXINE 25 MCG TABLET PO (06:45)
[2023-05-09 06:46] LABS: Albumin 3.5 g/dL (3.5-5.0); Albumin Globulin Ratio 1.4 (1.0-2.8); BUN Creatinine Ratio 26.8 (6-22); Blood Urea Nitrogen 41 mg/dL (7-17); Estimated Glomerular Filt Rate 35 mL/min (>60); Globulin 2.5 g/dL (1.7-4.1)
[2023-05-09 08:00] VITALS: BP 111/51; PULSE 71; RESP 18; TEMP 36.4; O2SAT 96
[2023-05-09] MEDS: ENOXAPARIN 30 MG/0.3 ML SYRINGE SUBCUT (08:34)
[2023-05-09] MEDS: LACTATED RINGERS 1,000 ML 100 ML IV (09:00)
--- NOTE | 2023-05-09 10:55 | PC.NURSE ---
Patients dizziness has stopped. She is back from her MRI and she is now taking a nap. Ambulating well with sba.
--- NOTE | 2023-05-09 11:25 | PT.IIE ---
Current Diagnoses Acute kidney failure, unspecified (05/08/23) Surgical History (Last Reviewed 05/08/23 @ 12:56 by Jaspal Araujo MD) Anesthesia History of cholecystectomy (~2018) History of vein stripping (~1979) Previous back surgery (~2018) Status post hysterectomy (~1979) Medical History (Last Reviewed 05/08/23 @ 12:56 by Jaspal Araujo MD) Ankle pain (~1987) Back pain Cataracts, bilateral (~2019) Cervical pain (neck) Chicken pox Chronic cough (~2021) Colon polyps (~2017) Depression (emotion) Eating disorder Elevated liver enzymes Fibromyalgia (~1989) Headache (~1955) Hemorrhoid (~1966) Hypertension (~2006) Hyperthyroidism (~1994) Hypothyroidism Irritable bowel syndrome (~1989) Measles (~1955) Migraines (~1966) Ovarian cyst (~2017) Post-traumatic stress disorder, chronic PTSD (post-traumatic stress disorder) Recurrent sinusitis (~2002) Sciatica associated with disorder of lumbar spine Seizure (~2018) Uterine cancer (~1981) Physical Therapy Inpatient Evaluation/Re-Eval M1 PT/OT-IP Prior Functional Status Start: 05/09/23 13:57 Freq: NEEDED Status: Active Protocol: Document 05/09/23 13:58 AB (Rec: 05/09/23 14:15 AB [id number]) Medical Review Prior Functional Status Medical History Reviewed Yes Communication Pt is able to express all needs. Mobility and Gait Pt reports she did not use AD until recently when she began having bouts of dizziness/ lightheadedness. Activities of Daily Living and IADL's IND with all ADLs and IADLs. Prior Functional Level (Other details) Pt reports being very active and participating in an exercise routine. Social History Household Members spouse Living Arrangements House Number of Floors (Floors) One Floor Number of Stairs To Enter/Railing? 2 MAREK with bilateral hand rails Home Environment Standard Height Toilet,Walk in Shower,Built-In Shower Seat Home Equipment Front Wheel Walker,Straight Cane,Crutches,Manual Wheelchair,Grab Bars In Shower Additional Social History Comment Pt reports her is able to assist 24/7 if needed. M2 PT-IP Current Condition Start: 05/09/23 13:57 Freq: NEEDED Status: Active Protocol: Document 05/09/23 13:58 AB (Rec: 05/09/23 14:15 AB [id number]) Physical Therapy Current Condition Current Condition Evaluation Date 05/09/23 Treatment Diagnosis MAGDA; difficulty in walking Onset Date 05/08/23 M3 PT-IP Subjective Start: 05/09/23 13:57 Freq: NEEDED Status: Active Protocol: Document 05/09/23 13:58 AB (Rec: 05/09/23 14:15 AB [id number]) Subjective Physical Therapy Visit Type Type Initial Evaluation Visit Start Time 11:25 Visit Stop Time 12:14 Total Visit Minutes 39 Physical Therapy Visit Comments Patient Comments Pt presents supine in bed and is agreeable to PT eval this morning. Therapy Pain Assessment Pain When Pain Assessed At Rest Pain Present Pain Present Denied Pain M4 PT-IP Mobility and Gait Start: 05/09/23 13:57 Freq: NEEDED Status: Active Protocol: Document 05/09/23 13:58 AB (Rec: 05/09/23 14:15 AB [id number]) PT-Bed Mobility Assessment Rolling Type of Rolling Bilateral Level of Assist Independent Supine to Sit Supine to Sit Independent Sit to Supine Sit to Supine Independent Scooting Scooting to Edge of Bed Independent Scooting Up and Down in Bed Independent PT-Transfer Assessment Sit to and From Stand Sit to and from Stand Independent,Use of Upper Extremities Equipment Transfer Assistive Device Gait Belt,Front Wheeled Walker Transfers Transfer Destination Bed,Toilet Transfer Technique Stand Step Pivot Transfer Ability Level of Assist Independent,Standby Assistance ,1 Person Assistance,Use of Upper Extremities Comments Mobility Comments Pt denied any symptoms with mobility. She does not have any instances of LOB when performing mobility. Gait Assessment Gait Gait Assistance Required: Standby Assistance,1 Person Assist Distance (Feet) 250 Assistive Devices Assistive Device Gait Belt Gait Deviations General Gait Pattern Within Normal Limits Comments Gait Comments No significant deficits noted today. Pt ambulates with quick tonia and though no LOB or instability were noted, the pt was educated on precautions to take to avoid falls. Stair Climbing Assessment Evaluation Level of Assist On Stairs Standby Assistance,1 Person Assistance Devices Stair Climbing Assistive Devices Left Railing,Right Railing Technique/Endurance Stair Climbing Direction Ascend and Descend Stair Climbing Technique Step Over Step Number of Steps Climbed 3 Query Text: Stair Climbing Set # Repetitions (reps) 1 PT-Balance Assessment Sitting Balance and Reactions Static Sitting Balance Ability Normal Dynamic Sitting Balance Ability Normal Standing Balance and Reactions Static Standing Balance Ability Good Dynamic Standing Balance Ability Good Device Used none Balance Tests Romberg 30 Comments Other Balance Tests/Deviations/Treatment Normal MARYCRUZ with eyes closed: : 24 seconds (pt reports mod dizziness and needing to sit, has mild sway) Romberg eyes open: 30 seconds (pt reports very mild dizziness) M5 PT-IP Objective Assessments Start: 05/09/23 13:57 Freq: NEEDED Status: Active Protocol: Document 05/09/23 13:58 AB (Rec: 05/09/23 14:15 AB [id number]) Orientation Orientation/Cognition Level of Alertness Alert Orientation Name,Age,Birthday,Month,Date, Year,Day of Week,Place, Situation Language Function Ability No Deficits Noted Safety Awareness Understands Safety Issues Memory Description No Deficits Noted Gross Range of Motion Upper Extremity ROM Assessment Within Functional Limits Lower Extremity ROM Assessment Within Functional Limits Strength Upper Extremity Strength Assessment Within Functional Limits Lower Extremity Strength Assessment Within Functional Limits M6 PT-IP Treatment Start: 05/09/23 13:57 Freq: NEEDED Status: Active Protocol: Document 05/09/23 13:58 AB (Rec: 05/09/23 14:15 AB [id number]) Physical Therapy Treatment Education Education Provided Safety Brace Education Patient M7 PT-IP Assessment and Plan Start: 05/09/23 13:57 Freq: NEEDED Status: Active Protocol: Document 05/09/23 13:58 AB (Rec: 05/09/23 14:15 AB [id number]) PT Summary Assessment and Plan Potential Rehabilitation Potential Good Status of Condition at Evaluation Stable Summary Impairments Pain,ROM,Strength,Balance, Coordination,Sensation,Tone, Cognition,Bed Mobility, Transfers,Gait,Activity Tolerance Assessment Summary Blanca Stockton is a 78 year old female patient presenting with MAGDA, dizziness and difficulty in walking. PT evaluation revealed the pt has high level of function, as she is able to perform bed mobility, STS and transfer with independence , and only requires SBA for ambulation and stairs. However , the pt's symptoms were reproduced when attempting standing balance with eyes closed, which may indicate peripheral vestibular dysfunction. Based on these findings, PT recommends discharge to home. The pt was educated on PT referral for outpatient PT once medically cleared if symptoms of imbalance and dizziness persist for a vestibular evaluation. The pt would benefit from skilled PT during her hospitalization to improve balance deficits. Goals Bed Mobility Goal Independent Transfer Goal Independent Gait Goal Independent Gait Distance 300 Other Goals Pt to be able to maintain standing balance with eyes closed for 30 seconds with no abnormal sway to show improving balance. Days to Meet Goals 10 Frequency of Treatment Frequency Of Treatment Once a Day Treatment Plan Physical Therapy Treatment Plan Therapeutic Exercise,Balance Retraining,Discharge Planning, Neuromuscular Re-ed Other Recommendations and Next Treatment Perform additional balance Focus testing, such as Cotto or Tinetti, as indicated. Precautions Other Precautions Fall risk Recommendations To Nursing Amount of Assist Needed Standby Assistance,1 Person Assist Discharge Recommendations PT Discharge Recommendations Home,Outpatient PT Other Discharge Recommendations Pt was educated on outpatient PT for additional VBRT intervention if symptoms of dizziness and imbalance persist. Transportation Needs at Discharge Private Vehicle
[2023-05-09 12:00] VITALS: BP 117/64; PULSE 80; RESP 18; TEMP 35.9; O2SAT 92
--- NOTE | 2023-05-09 12:33 | CM.DANOTE ---
Initial DCP Assessment Note Pt is a 78 yo female, resident of [place], arrives with difficulty walking w/periods of persistent dizziness. Patient admitted for management of acute kidney injury. According to discussion in multidisciplinary rounds this morning, patient is improving w/fluids. MRI of the brain is pending today. PCP: Sandra Holder Payer: NEFTLAI DIAZ Reviewed chart, met w/patient to introduce self and role. Patient lives w/spouse Bradley, mostly indp, uses a walker in the house when she has become dizzy. Spouse drives. Patient denies any hx of HH or SNF. No barriers identified at this time to patient's safe discharge home w/family to assist; close outpatient f/u recommended. CM team will plan to follow closely in case any DC needs or concerns arise. JUANCARLOS Anand Discharge Planning/Care Management CM Discharge Assessment Start: 05/09/23 12:27 Freq: Status: Active Protocol: Document 05/09/23 12:27 CHAYA (Rec: 05/09/23 12:33 CHAYA [id number]) Discharge Planning Assessment Assigned Funeral Counselor JUANCARLOS Liu DPOA/Assigned Designee Name Bradley Valdovinos, spouse Contact Information [phone] Advance Directives? Yes Advance Directives on File No History Provided By Patient,Medical Record Prior Living Arrangements House Household Members spouse Type of transporation used prior to Relies on Others admit Comment Spouse drives Independent with ADL's Yes: Uses a walker in the house when dizzy Is patient alert and oriented? Yes Needs Assistance With Home Chores / Shopping Barriers to Discharge No Comment Home w/spouse, no barriers identified Discharge Plan Home Transportation Arrangement Spouse Referrals Initiated None needed Whiteboard Updated in Patient Room with Yes name and ext. # of Funeral Counselor Comment Discharge goal is home w/ spouse
--- NOTE | 2023-05-09 13:32 | PM.DS.1 ---
History of Present Illness History of Present Illness Chief complaint: diffuculity walking/standing/has hit head T-1 Narrative: Blanca flores is a very pleasant 78-year-old female patient with history of chronic neck pain with history of neck cervical spine fusion, hypothyroidism, hypertension, chronic lower extremity edema and insomnia. The patient was last in her usual state of health about 1 week ago. About 1 week ago, medication changes were made which the patient is unable to specifically describe. It does seem however that she was on losartan with or without amlodipine and was switched to lisinopril. For the past 1 week, she reports episodes of dizziness that are persistent. The dizziness is worse when going from lying down or sitting to standing position. The dizziness feels like she may almost pass out. The patient has been scared to participate in activity due to fear of falling. She states she did fall at home on 1 occasion and did not hit her head or neck. She arrived in the emergency room where she was hypotensive. A blood pressure of 85/50 was reported to me. ICU blood pressure of 99/54 documented in the ED record. The patient underwent a lab and clinical exam that was not consistent with sepsis. Lungs were clear. Urinalysis unremarkable. She also underwent a renal ultrasound that was unremarkable. Labs did show new onset acute kidney injury and a presenting creatinine of 2. She was given intravenous crystalloids in the emergency room. She denied having any increased sweating, fevers, chills, chest pains, shortness of breath, new joint pains or tenderness or rash. Denies having a cough or lower urinary tract symptoms. Due to MAGDA and hypotension felt to be due to polypharmacy and hypovolemia, this admission has been requested. After receiving IV fluids, on the medical floor, the patient is feeling significantly more comfortable and back to normal per her own report. Plan will be to continue hydration and recheck renal function in a.m. If returned to normal, anticipate discharge. If not, may need additional renal support with IV fluids. We will also need to make alterations to her antihypertensive medications. Discharge Providers Provider Date of admission: 05/08/23 20:13 Discharge Date: 05/09/23 Primary care physician: Sandra Holder PA-C Consults: 05/08/23 12:51 Consult to Physical Therapy Evaluate & Treat Comment: Physician Instructions: Evaluate and Treat Discharge provider: Aime A Ross, DO Summary Hospital Course Discharge Diagnosis: Acute kidney injury in a presenting creatinine of 2.06.? Etiology is hypotension caused by polypharmacy most notably: Lisinopril, amlodipine Mild hypovolemic hyponatremia sodium 136 POA 1 week of dizziness and lightheadedness.? This is being attributed to hypotension from polypharmacy and hypovolemia.? Will obtain MRI without contrast in a.m. of the brain to exclude any posterior circulation acute events. Chronic Hypothyroidism on levothyroxine Insomnia on temazepam Chronic neck pain on gabapentin, amitriptyline and duloxetine.? History of cervical spine fusion procedure. Hospital Course: Admitted for dizziness and hypotension and found to have MAGDA from dehydration. Given IVF and everything improved. MRI brain negative, other than small ventricular mass of unknown significance. She will discuss next steps with PCP about monitoring this. Discharged home to get labs with PCP and hold her lisinopril until then. Exam Vital Signs (past 8 hours): - 05/09/23 06:37 05/09/23 08:00 05/09/23 12:00 Temperature 97.6 F 96.7 F L Pulse Rate 75 71 80 Respiratory Rate 17 18 18 Blood Pressure 108/60 111/51 L 117/64 Pulse Oximetry 100 96 92 Oxygen Flow Rate 0 0 Oxygen Delivery Method Room Air Oxygen Flow Rate 0 Narrative Exam Narrative: Physical exam General exam the patient is conscious, cooperative and comfortable HEENT normocephalic atraumatic Neck exam supple Cardiovascular exam S1-S2 present tachycardic no murmur Lung exam bilateral equal expansion, clear bilaterally, no wheezing or distress, able to speak in full sentences Abdomen is soft, nontender, no guarding, no tenderness or rigidity. Bowel sounds are present throughout Neurological exam nonfocal Lower extremities are warm and well-perfused 2+ edema Objective Labs 05/09/23 06:23 05/09/23 06:23 Labs: Laboratory Results - last 24 hr 05/08/23 05/08/23 05/08/23 12:48 12:48 14:20 WBC RBC Hgb Hct MCV MCH MCHC RDW Plt Count Neut % (Auto) Lymph % (Auto) [place] % (Auto) Eos % (Auto) Baso % (Auto) Neut # (Auto) Lymph # (Auto) [place] # (Auto) Eos # (Auto) Baso # (Auto) Sodium Potassium Chloride Carbon Dioxide BUN Creatinine Estimated GFR BUN/Creatinine Ratio Glucose Lactate 1.8 Calcium Total Bilirubin AST ALT Alkaline Phosphatase Troponin I < 0.012 NT-Pro-B Natriuret Pep 49 Total Protein Albumin Globulin Albumin/Globulin Ratio Procalcitonin 0.09 TSH 2.48 Urine Color Urine Appearance Urine pH Ur Specific [place] Urine Protein Urine Glucose (UA) Urine Ketones Urine Occult Blood Urine Nitrate Urine Bilirubin Urine Urobilinogen Ur Leukocyte Esterase Urine RBC Urine WBC Ur Squamous Epith Cells Urine Bacteria Ur Culture Indicated? 05/08/23 05/08/23 05/08/23 14:20 14:35 18:48 WBC RBC Hgb Hct MCV MCH MCHC RDW Plt Count Neut % (Auto) Lymph % (Auto) [place] % (Auto) Eos % (Auto) Baso % (Auto) Neut # (Auto) Lymph # (Auto) [place] # (Auto) Eos # (Auto) Baso # (Auto) Sodium 136 L Potassium 4.3 Chloride 103 Carbon Dioxide 27 BUN 50 H Creatinine 2.06 H Estimated GFR 24 L BUN/Creatinine Ratio 24.3 H Glucose 100 Lactate 1.3 Calcium 8.6 Total Bilirubin AST ALT Alkaline Phosphatase Troponin I NT-Pro-B Natriuret Pep Total Protein Albumin Globulin Albumin/Globulin Ratio Procalcitonin TSH Urine Color Yellow Urine Appearance Clear Urine pH 5.5 Ur Specific [place] 1.010 Urine Protein Negative Urine Glucose (UA) Negative Urine Ketones Negative Urine Occult Blood Negative Urine Nitrate Negative Urine Bilirubin Negative Urine Urobilinogen 0.2 Ur Leukocyte Esterase 1+ H Urine RBC None seen Urine WBC 0-1/hpf Ur Squamous Epith Cells 0-1 /hpf Urine Bacteria None seen Ur Culture Indicated? Specimen cultured 05/09/23 05/09/23 06:23 06:23 WBC 8.0 RBC 4.19 Hgb 12.5 Hct 38.1 MCV 91.0 MCH 30.0 MCHC 32.9 RDW 14.3 Plt Count 187 Neut % (Auto) 52.7 Lymph % (Auto) 31.1 [place] % (Auto) 13.3 Eos % (Auto) 2.3 Baso % (Auto) 0.6 Neut # (Auto) 4200 Lymph # (Auto) 2500 [place] # (Auto) 1100 H Eos # (Auto) 200 Baso # (Auto) 0 Sodium 137 Potassium 4.7 Chloride 104 Carbon Dioxide 27 BUN 41 H Creatinine 1.53 H Estimated GFR 35 L BUN/Creatinine Ratio 26.8 H Glucose 90 Lactate Calcium 8.8 Total Bilirubin 0.4 AST 22 ALT 22 Alkaline Phosphatase 80 Troponin I NT-Pro-B Natriuret Pep Total Protein 6.0 L Albumin 3.5 Globulin 2.5 Albumin/Globulin Ratio 1.4 Procalcitonin TSH Urine Color Urine Appearance Urine pH Ur Specific [place] Urine Protein Urine Glucose (UA) Urine Ketones Urine Occult Blood Urine Nitrate Urine Bilirubin Urine Urobilinogen Ur Leukocyte Esterase Urine RBC Urine WBC Ur Squamous Epith Cells Urine Bacteria Ur Culture Indicated? [facility] Medical History Ankle pain (~1987) Back pain Cataracts, bilateral (~2019) Cervical pain (neck) Chicken pox Chronic cough (~2021) Colon polyps (~2017) Depression (emotion) Eating disorder Elevated liver enzymes Fibromyalgia (~1989) Headache (~1955) Hemorrhoid (~1966) Hypertension (~2006) Hyperthyroidism (~1994) Hypothyroidism Irritable bowel syndrome (~1989) Measles (~1955) Migraines (~1966) Ovarian cyst (~2017) Post-traumatic stress disorder, chronic PTSD (post-traumatic stress disorder) Recurrent sinusitis (~2002) Sciatica associated with disorder of lumbar spine Seizure (~2018) Uterine cancer (~1981) Surgical History Anesthesia History of cholecystectomy (~2018) History of vein stripping (~1979) Previous back surgery (~2018) Status post hysterectomy (~1979) Family History Father Hypertension Stroke Parkinson's disease Mother Prostate cancer Hypertension Hyperlipidemia Grandfather Cancer Diabetes mellitus Hyperlipidemia Grandmother Hyperlipidemia Grandfather MVA (motor vehicle accident) Grandmother Alcoholism Social History household members: spouse Smoking Status: Never smoker alcohol intake: former Discharge Plan Discharge Plan Patient Disposition: Home Provider Discharge Comment: Please hold your lisinopril until you get your kidney function rechecked. I've stopped your lasix. Discharge orders & Medications Prescriptions: Continued albuterol sulfate 90 mcg/actuation HFA aerosol inhaler 2 puff inhalation QID amitriptyline 50 mg tablet 50 mg PO BEDTIME Qty: 90 1RF levothyroxine [Levoxyl] 25 mcg tablet 25 mcg PO DAILY Qty: 90 1RF simvastatin 20 mg tablet 20 mg PO BEDTIME Qty: 90 1RF temazepam 7.5 mg capsule 7.5 mg PO BEDTIME PRN (Reason: sleep) Qty: 60 0RF senna leaf extract 8.7 mg tablet,chewable See Rx Instructions PO .COMPLEX Qty: 90 0RF Rx Instructions: 1-2 tab orally prn constipation; lisinopril 10 mg tablet 10 mg PO DAILY Qty: 90 0RF gabapentin [Neurontin] 300 mg capsule 300 mg PO QID Rx Instructions: 2-4 caps daily (2qAM every day, 2qPM prn) duloxetine 20 mg capsule,delayed release(DR/EC) 40 mg PO DAILY Rx Instructions: started 02/22/22 by PCP, instructions to take 20mg daily x2 weeks, then increase to 40mg daily naltrexone 50 mg Tablet 50 mg PO BID Discontinued furosemide 40 mg tablet 40 mg PO DAILY Qty: 90 1RF Follow up/Referrals: Sandra Holder PA-C [Primary Care Provider] - 05/13/23 11:00 am (Appt:05/13 @ 11:[address] Scruggs in [place] ) Visit Report/Discharge Packet Instructions: [facility] Stand Alone Forms: Patient Portal/API, Stroke Signs & Symptoms Discharge Data Primary Care Provider: Sandra Holder Discharges patient from system. Discharge Date/Time: 05/09/23 14:41 Quality VTE Deep Vein Thrombosis/Pulmonary Embolism Present on Admission: No
== END 2023-05-09 14:41 | disposition home or self-care (01) | DRG 684 ==
LOC: ED 18:33 → AC 20:13
PROVIDERS: Emergency Medicine; Admitting Provider Family Medicine; Emergency Provider Emergency Medicine; PCP Student in an Organized Health Care Education/Training Program; Referring Provider Emergency Medicine; Visit Provider Family Medicine
DX: N17.9 Acute kidney failure, unspecified (principal); I95.9 Hypotension, unspecified; E03.9 Hypothyroidism, unspecified; G47.00 Insomnia, unspecified; G89.29 Other chronic pain; M54.2 Cervicalgia; E86.0 Dehydration; Z98.1 Arthrodesis status
CPT/HCPCS: 36415; 70450; 70551; 71045; 72125; 72170; 76770; 80048; 80053; 81001; 82550; 83605; 83690; 83735; 83880; 84145; 84443; 84484; 85025; 85610; 85730; 87040; 87086; 93005; 96360; 96361; 97161; 97535; 99284; 99285; J1650

== ENCOUNTER 2023-08-01 15:56 | Emergency (ER) | payer OTHER, SELFPAY ==
[2023-05-08 21:44] VITALS: BMI 35.9
[2023-08-01 16:00] VITALS: BP 139/87; PULSE 94; RESP 16; TEMP 36.7; O2SAT 96; BMI 32.9
--- NOTE | 2023-08-01 16:20 | ED_ITS ---
HPI - General Adult General Chief complaint: Shortness of Breath/Dyspnea Stated complaint: SOB Time Seen by Provider: 08/01/23 16:07 Source: patient Mode of arrival: Wheelchair History of Present Illness HPI narrative: Patient is a 78-year-old female. Has a history of hypertension. Has had a cough for the past several weeks. She thinks it is because of the lisinopril that she is on. She was also having shortness of breath. Is very anxious about the symptoms. Has a follow-up with her primary provider after the of the year but does not think she can make it that long. No abdominal pain. No lower extremity swelling. No fevers. Related Data Home Medications Medication Instructions Recorded Confirmed albuterol sulfate 90 mcg/actuation 2 puff inhalation QID 08/22/20 05/08/23 aerosol inhaler duloxetine 20 mg capsule,delayed 40 mg PO DAILY 05/08/23 05/08/23 release gabapentin 300 mg capsule 300 mg PO QID 05/08/23 05/08/23 (Neurontin) naltrexone 50 mg tablet 50 mg PO BID 05/08/23 05/08/23 Previous Rx's Medication Instructions Recorded amitriptyline 50 mg tablet 50 mg PO BEDTIME #90 tabs 04/29/23 levothyroxine 25 mcg tablet 25 mcg PO DAILY #90 tabs 04/29/23 (Levoxyl) senna leaf extract 8.7 mg chewable See Rx Instructions PO .COMPLEX 04/29/23 tablet #90 tabs simvastatin 20 mg tablet 20 mg PO BEDTIME #90 tabs 04/29/23 temazepam 7.5 mg capsule 7.5 mg PO BEDTIME PRN sleep #60 04/29/23 caps lisinopril 10 mg tablet 10 mg PO DAILY #90 tabs 07/01/23 losartan 25 mg tablet 25 mg PO DAILY #30 tabs 08/01/23 Allergies Allergy/AdvReac Type Severity Reaction Status Date / Time fentanyl Allergy Severe Anaphylaxis Verified 08/01/23 16:16 sumatriptan [From IMITREX] Allergy Severe FACIAL Verified 08/01/23 16:16 SWELLING, RASH propoxyphene [From DARVON] Allergy Intermediate NOT ABLE Verified 08/01/23 16:16 TO MOVE WELL AND FUNCTION codeine [CODEINE] AdvReac Mild NAUSEA Verified 08/01/23 16:16 oxycodone [OXYCODONE] AdvReac Mild NAUSEA Verified 08/01/23 16:16 sertraline [SERTRALINE] AdvReac Mild Verified 08/01/23 16:16 Review of Systems Review of Systems ROS Unobtainable: All systems reviewed & are unremarkable except as noted in HPI and below Patient History Medical History Chronic cough (~2021) PTSD (post-traumatic stress disorder) Seizure (~2018) Migraines (~1966) Fibromyalgia (~1989) Ankle pain (~1987) Measles (~1955) Chicken pox Recurrent sinusitis (~2002) Cataracts, bilateral (~2019) Ovarian cyst (~2017) Irritable bowel syndrome (~1989) Hemorrhoid (~1966) Colon polyps (~2017) Hyperthyroidism (~1994) Hypertension (~2006) Uterine cancer (~1981) Depression (emotion) Hypothyroidism Eating disorder Post-traumatic stress disorder, chronic Sciatica associated with disorder of lumbar spine Headache (~1955) Back pain Cervical pain (neck) Elevated liver enzymes Surgical History Anesthesia History of cholecystectomy (~2018) History of vein stripping (~1979) Previous back surgery (~2018) Status post hysterectomy (~1979) Family History Father Hypertension Stroke Parkinson's disease Mother Prostate cancer Hypertension Hyperlipidemia Grandfather Cancer Diabetes mellitus Hyperlipidemia Grandmother Hyperlipidemia Grandfather MVA (motor vehicle accident) Grandmother Alcoholism Social History household members: spouse Smoking Status: Never smoker alcohol intake: former Smoking Status: Never smoker alcohol intake frequency: 0-2 drinks per day Substance Use Type: does not use Exam Initial Vital Signs Initial Vital Signs: Vital Signs Temperature 98.0 F 08/01/23 16:00 Pulse Rate 94 H 08/01/23 16:00 Respiratory Rate 16 08/01/23 16:00 Blood Pressure 139/87 08/01/23 16:00 Pulse Oximetry 96 08/01/23 16:00 Oxygen Delivery Method Room Air 08/01/23 16:00 Const General: cooperative and healthy appearing HENAL Head: normal to inspection and normocephalic Resp Effort & Inspection: normal respiratory effort Auscultation: clear to auscultation bilaterally Cardio Rate: regular rate Rhythm: regular rhythm GI Inspection: normal to inspection and non-distended Psych Other: Very anxious Course Orders Ordered: ED Orders 08/01/23 16:21 XR chest 1V Stat EKG-12 Lead Stat 08/01/23 16:28 Covid-19 + FLU A/B + RSV - PCR Stat 08/01/23 16:50 Complete Blood Count AUTO DIFF Stat Comprehensive Metabolic Panel Stat Lipase Stat Discontinued Medications Acetaminophen (Acetaminophen 325 Mg Tablet) 650 mg PO NOW ONE Stop: 08/01/23 18:15 Last Admin: 08/01/23 18:17 Dose: 650 mg Documented By: OW Vital Signs Vital signs: Vital Signs - 8 hr 08/01/23 16:00 08/01/23 17:30 08/01/23 18:18 Temperature 98.0 F Pulse Rate 94 H 74 67 Respiratory Rate 16 18 18 Blood Pressure 139/87 130/77 135/63 Pulse Oximetry 96 95 97 Oxygen Delivery Method Room Air Room Air Room Air Medical Decision Making Lab Data Lab results reviewed: Yes I reviewed the patient's lab results. 08/01/23 16:50 08/01/23 16:50 Labs: Lab Results 08/01/23 08/01/23 Range/Units 16:28 16:50 WBC 6.3 (4.5-11.0) X10^3/uL RBC 4.78 (4.0-5.2) X10^6/uL Hgb 14.7 (12.0-16.0) g/dL Hct 43.7 (36-46) % MCV 91.5 (80-100) fL MCH 30.9 (26-34) PG MCHC 33.7 (30-36) % RDW 13.9 (11.6-14.8) % Plt Count 245 (150-400) X10^3/uL Neut % (Auto) 60.1 (50-75) % Lymph % (Auto) 26.0 (25-40) % Ida % (Auto) 11.6 (3-14) % Eos % (Auto) 1.4 L (2-4) % Baso % (Auto) 0.9 (0-2) % Neut # (Auto) 3800 (9479-3928) /uL Lymph # (Auto) 1600 (8490-0796) /uL Ida # (Auto) 700 (0-900) /uL Eos # (Auto) 100 (0-450) /uL Baso # (Auto) 100 (0-100) /uL Sodium 138 (137-145) mmol/L Potassium 4.4 (3.4-5.1) mmol/L Chloride 102 (98-107) mmol/L Carbon Dioxide 30 (22-32) mmol/L BUN 18 H (7-17) mg/dL Creatinine 1.05 H (0.52-1.04) mg/dL Estimated GFR 54 L (>60) mL/min BUN/Creatinine Ratio 17.1 (6-22) Glucose 109 (80-110) mg/dL Calcium 9.8 (8.4-10.2) mg/dL Total Bilirubin 0.9 (0.2-1.3) mg/dL AST 40 H (14-36) IU/L ALT 68 H (<35) IU/L Alkaline Phosphatase 105 (38-126) U/L Total Protein 7.9 (6.3-8.2) g/dL Albumin 4.5 (3.5-5.0) g/dL Globulin 3.4 (1.7-4.1) g/dL Albumin/Globulin Ratio 1.3 (1.0-2.8) Lipase 29 (23-300) U/L SARS-CoV-2 (PCR) Negative (Negative) Influenza A (RT-PCR) Flu a negative (NEGATIVE) Influenza B (RT-PCR) Flu b negative (NEGATIVE) RSV (PCR) Negative (Negative) Imaging Data Chest x-ray: Radiologist's Impression: PROCEDURE: XR CHEST 1V INDICATIONS: Shortness of breath TECHNIQUE: One view of the chest was acquired. COMPARISON: [facility], CR, XR CHEST 1V, 05/08/2023, 12:25. FINDINGS: Surgical changes and devices: Status post prior ACDF. Lungs and pleura: Lung volumes are slightly diminished. Minimal streaky bibasilar opacities likely representing atelectasis. No pleural effusions or pneumothorax. Mediastinum: Mediastinal contours appear normal. Heart size is normal. Bones and chest wall: No suspicious bony lesions. Overlying soft tissues appear unremarkable. IMPRESSION: Mildly diminished lung volumes with streaky bibasilar opacities. These are favored to represent atelectasis. Recommend dedicated upright PA and lateral views of the chest when patient is able. Otherwise, no acute cardiopulmonary abnormalities. ECG Data Attestation: I personally reviewed and interpreted this ECG as follows: Interpretation: Sinus rhythm Ventricular rate 87 Normal axis Normal QRS has a normal QTC No ST T wave changes MDM Narrative Medical decision making narrative: After time here in the emergency department patient became much less anxious. She has unremarkable labs. Unremarkable chest x-ray. Unremarkable EKG. Low suspicion for ACS. I do think that anxiety does play a component to her symptoms today. The plan will be is to stop the lisinopril as this seems to be causing her quite a bit of issues. She is been on losartan in the past but was taken off of because they thought it was causing her to pass out. Now she thinks that the vertigo issues and passing out or more related to sinus issues and not the losartan so she was willing to start this medication once again. She has a follow-up with her primary doctor in a couple weeks. She will take her blood pressure at home and return to the emergency department for new or worsening symptoms. Discharge Plan Departure Patient Disposition: Home Clinical Impression: Cough, Hypertension Instructions: High Blood Pressure Activity Restrictions/Additional Instructions: I recommend that you stop taking the lisinopril and start taking losartan. This medication was sent to [facility]. Take your blood pressure at home like we discussed and record these values. Keep your scheduled appointment with your primary doctor after the new year. Return to the emergency department for new symptoms. Prescriptions: New losartan 25 mg tablet 25 mg PO DAILY Qty: 30 0RF No Action albuterol sulfate 90 mcg/actuation HFA aerosol inhaler 2 puff inhalation QID Hold Instructions: ESTABLISHED AT NEW PROVIDER lisinopril 10 mg tablet 10 mg PO DAILY Qty: 90 2RF Hold Instructions: ESTABLISHED WITH A NEW PROVIDER amitriptyline 50 mg tablet 50 mg PO BEDTIME Qty: 90 1RF Hold Instructions: ESTABLISHED WITH A NEW PROVIDER levothyroxine [Levoxyl] 25 mcg tablet 25 mcg PO DAILY Qty: 90 1RF Hold Instructions: ESTABLISHED WITH A NEW PROVIDER simvastatin 20 mg tablet 20 mg PO BEDTIME Qty: 90 1RF Hold Instructions: ESTABLISHED WITH NEW PROVIDER temazepam 7.5 mg capsule 7.5 mg PO BEDTIME PRN (Reason: sleep) Qty: 60 0RF Hold Instructions: ESTABLISHED WITH NEW PROVIDER senna leaf extract 8.7 mg tablet,chewable See Rx Instructions PO .COMPLEX Qty: 90 0RF Hold Instructions: ESTABLISHED WITH A NEW PROVIDER Rx Instructions: 1-2 tab orally prn constipation; gabapentin [Neurontin] 300 mg capsule 300 mg PO QID Hold Instructions: ESTABLISHED WITH A NEW PROVIDER Rx Instructions: 2-4 caps daily (2qAM every day, 2qPM prn) duloxetine 20 mg capsule,delayed release(DR/EC) 40 mg PO DAILY Hold Instructions: ESTABLISHED WITH A NEW PROVIDER Rx Instructions: started 02/22/22 by PCP, instructions to take 20mg daily x2 weeks, then increase to 40mg daily naltrexone 50 mg Tablet 50 mg PO BID Hold Instructions: ESTABLISHED WITH A NEW PROVIDER Referrals: Sandra Holder PA-C [Primary Care Provider] - Stand Alone Forms: Patient Portal/API
[2023-08-01 17:00] LABS: Add Manual Diff / Slide Review NO; Basophils Absolute Auto 100 /uL (0-100); Basophils Percent Auto 0.9 % (0-2); Eosinophils Absolute Auto 100 /uL (0-450); Eosinophils Percent Auto 1.4 % (2-4); Hematocrit 43.7 % (36-46); Hemoglobin 14.7 g/dL (12.0-16.0); Lymphocytes Absolute Auto 1600 /uL (1100-4500); Mean Corpuscular HGB Conc 33.7 % (30-36); Mean Corpuscular Hemoglobin 30.9 PG (26-34); Mean Corpuscular Volume 91.5 fL (80-100); Monocytes Absolute Auto 700 /uL (0-900); Monocytes Percent Auto 11.6 % (3-14); Neutrophils Absolute Auto 3800 /uL (1500-7000); Neutrophils Percent Auto 60.1 % (50-75); Platelet Count 245 X10^3/uL (150-400); Red Blood Cell Count 4.78 X10^6/uL (4.0-5.2); Red Cell Distribution Width 13.9 % (11.6-14.8); White Blood Cell Count 6.3 X10^3/uL (4.5-11.0)
[2023-08-01 17:10] LABS: Influenza A - CEPHEID Flu A NEGATIVE (NEGATIVE); Influenza B - CEPHEID Flu B NEGATIVE (NEGATIVE); Respiratory Syncytial Virus Negative (Negative)
[2023-08-01 17:15] LABS: Alanine Aminotransferase 68 IU/L (<35); Albumin 4.5 g/dL (3.5-5.0); Albumin Globulin Ratio 1.3 (1.0-2.8); Alkaline Phosphatase 105 U/L (38-126); Aspartate Aminotransferase 40 IU/L (14-36); BUN Creatinine Ratio 17.1 (6-22); Bilirubin Total 0.9 mg/dL (0.2-1.3); Blood Urea Nitrogen 18 mg/dL (7-17); Calcium 9.8 mg/dL (8.4-10.2); Carbon Dioxide 30 mmol/L (22-32); Chloride 102 mmol/L (98-107); Estimated Glomerular Filt Rate 54 mL/min (>60); Globulin 3.4 g/dL (1.7-4.1); Glucose 109 mg/dL (80-110); HEMOLYSIS 20 (0-50); Lipase 29 U/L (23-300); Potassium 4.4 mmol/L (3.4-5.1); Sodium 138 mmol/L (137-145); Total Protein 7.9 g/dL (6.3-8.2)
[2023-08-01 17:16] LABS: COVID-19 CEPHEID 4-PLEX PCR Negative (Negative)
[2023-08-01 17:30] VITALS: BP 130/77; PULSE 74; RESP 18; O2SAT 95
[2023-08-01] MEDS: ACETAMINOPHEN 325 MG TABLET 650 MG PO (18:17)
[2023-08-01 18:18] VITALS: BP 135/63; PULSE 67; RESP 18; O2SAT 97
== END 2023-08-01 18:40 | disposition home or self-care (01) ==
PROVIDERS: Emergency Provider Emergency Medicine; PCP Student in an Organized Health Care Education/Training Program
DX: I10 Essential (primary) hypertension (principal); R05.9 Cough, unspecified; R07.9 Chest pain, unspecified; Z79.899 Other long term (current) drug therapy
CPT/HCPCS: 0241U; 36415; 71045; 80053; 83690; 85025; 93005; 93010; 99284

== ENCOUNTER → 2023-11-07 14:53 | Outpatient (CLI) | payer MEDICARE, SELFPAY ==
[2023-05-08 21:44] VITALS: BMI 35.9
== END ==
PROVIDERS: PCP Student in an Organized Health Care Education/Training Program; Referring Provider Internal Medicine Critical Care Medicine; Visit Provider Internal Medicine Critical Care Medicine
DX: R06.02 Shortness of breath (principal); J98.8 Other specified respiratory disorders
CPT/HCPCS: 94060; 94726; 94729

== ENCOUNTER → 2023-12-11 13:29 | Outpatient (CLI) | payer MEDICARE, SELFPAY ==
[2023-05-08 21:44] VITALS: BMI 35.9
[2023-12-11 14:29] LABS: Hemoglobin 13.5 g/dL (12.0-16.0)
[2023-12-11 15:15] LABS: BUN Creatinine Ratio 13.8 (6-22); Blood Urea Nitrogen 13 mg/dL (7-17); Calcium 8.7 mg/dL (8.4-10.2); Carbon Dioxide 31 mmol/L (22-32); Chloride 104 mmol/L (98-107); Estimated Glomerular Filt Rate > 60 mL/min (>60); Glucose 104 mg/dL (80-110); HEMOLYSIS < 15 (0-50); Potassium 3.8 mmol/L (3.4-5.1); Sodium 139 mmol/L (137-145)
[2023-12-11 17:00] LABS: Creatinine Urine Random 179.5 mg/dL; Protein (Total) Urine Random < 5 mg/dL (0-12); Protein Creatinine Ratio Urine 0.02 GRAM/24H
== END ==
PROVIDERS: PCP Student in an Organized Health Care Education/Training Program; Referring Provider Student in an Organized Health Care Education/Training Program; Visit Provider Student in an Organized Health Care Education/Training Program
DX: N05.9 Unspecified nephritic syndrome with unspecified morphologic changes (principal); D64.9 Anemia, unspecified; R80.9 Proteinuria, unspecified
CPT/HCPCS: 36415; 80048; 82570; 84156; 85014; 85018

== ENCOUNTER → 2024-01-21 15:56 | Outpatient (CLI) | payer MEDICARE, SELFPAY ==
[2023-05-08 21:44] VITALS: BMI 35.9
[2024-01-21 17:28] LABS: Erythrocyte Sedimentation Rate 8 MM/HR (0-20)
[2024-01-21 18:04] LABS: C-Reactive Protein Quant < 0.5 mg/dL (<1.0)
[2024-01-21 18:08] LABS: Rheumatoid Factor < 8.6 IU/mL (<12.0)
[2024-01-23 21:08] LABS: CCP Antibodies IgG/IgA 0 units (0-19)
[2024-01-26 19:11] LABS: ANA Screen, IFA Positive (.)
== END ==
LOC: LAB 15:59
PROVIDERS: PCP Student in an Organized Health Care Education/Training Program; Referring Provider Student in an Organized Health Care Education/Training Program; Visit Provider Student in an Organized Health Care Education/Training Program
DX: L85.3 Xerosis cutis (principal); R68.2 Dry mouth, unspecified; H04.123 Dry eye syndrome of bilateral lacrimal glands
CPT/HCPCS: 36415; 85651; 86038; 86140; 86200; 86430

== ENCOUNTER → 2024-02-07 16:11 | Outpatient (CLI) | payer MEDICARE, SELFPAY ==
[2023-05-08 21:44] VITALS: BMI 35.9
[2024-02-07 17:22] LABS: Hematocrit 39.9 % (36-46); Hemoglobin 13.2 g/dL (12.0-16.0)
[2024-02-07 17:24] LABS: Appearance Urine UA CLEAR; Bilirubin Urine UA NEGATIVE (NEGATIVE); Color Urine UA YELLOW; Glucose Urine UA NEGATIVE (Negative); Ketones Urine UA NEGATIVE (NEGATIVE); Leukocyte Esterase Urine UA TRACE (NEGATIVE); Nitrite Urine UA NEGATIVE (Negative); Occult Blood Urine UA NEGATIVE (Negative); Protein Urine UA NEGATIVE (Negative); Specific Gravity Urine UA 1.015 (1.000-1.035); Urobilinogen Urine UA 0.2 E.U./dL (0.2)
[2024-02-07 17:27] LABS: pH Urine UA 6.5 (4.5-8.0)
[2024-02-07 17:31] LABS: Bacteria Urine Occasional (0-1); Culture Indicated Urine Cult Not Indicated; RBC Urine 0-1/HPF (0-5/HPF); Squamous Epithelial Cell Urine 1-5 /HPF (0-5/HPF); Urine Volume 10mL (spun); WBC Urine 0-1/HPF (0-5/HPF)
[2024-02-07 17:44] LABS: BUN Creatinine Ratio 16.2 (6-22); Blood Urea Nitrogen 17 mg/dL (7-17); Carbon Dioxide 27 mmol/L (22-32); Chloride 109 mmol/L (98-107); Estimated Glomerular Filt Rate 54 mL/min (>60); Glucose 94 mg/dL (80-110); HEMOLYSIS < 15 (0-50); Phosphorous 3.1 mg/dL (2.8-4.1); Potassium 3.9 mmol/L (3.4-5.1); Sodium 141 mmol/L (137-145)
[2024-02-07 17:46] LABS: Creatinine Urine Random 177.01 mg/dL; Protein (Total) Urine Random 6 mg/dL (0-12); Protein Creatinine Ratio Urine 0.03 GRAM/24H
[2024-02-09 11:39] LABS: Parathyroid Hormone Int 78 pg/mL (15-65)
== END ==
LOC: LAB 16:13
PROVIDERS: PCP Student in an Organized Health Care Education/Training Program; Referring Provider Student in an Organized Health Care Education/Training Program; Visit Provider Student in an Organized Health Care Education/Training Program
DX: N05.9 Unspecified nephritic syndrome with unspecified morphologic changes (principal); D70.9 Neutropenia, unspecified; D63.1 Anemia in chronic kidney disease; E83.30 Disorder of phosphorus metabolism, unspecified; N25.81 Secondary hyperparathyroidism of renal origin; N30.00 Acute cystitis without hematuria; R80.9 Proteinuria, unspecified
CPT/HCPCS: 36415; 80048; 81001; 82570; 83970; 84100; 84156; 85014; 85018

== ENCOUNTER 2024-04-29 14:15 | Outpatient (RCR) | payer MEDICARE, SELFPAY ==
[2023-05-08 21:44] VITALS: BMI 35.9
== END 2024-04-29 16:15 ==
LOC: PUL 14:15
PROVIDERS: PCP Student in an Organized Health Care Education/Training Program; Referring Provider Internal Medicine Critical Care Medicine; Visit Provider Internal Medicine Critical Care Medicine
DX: R94.2 Abnormal results of pulmonary function studies (principal)
CPT/HCPCS: G0237; G0238

== ENCOUNTER → 2024-12-07 14:15 | Outpatient (CLI) | payer MEDICARE, SELFPAY ==
[2023-05-08 21:44] VITALS: BMI 35.9
[2024-12-07 14:49] LABS: Appearance Urine UA SL CLOUDY; Bilirubin Urine UA NEGATIVE (NEGATIVE); Color Urine UA YELLOW; Glucose Urine UA NEGATIVE (Negative); Ketones Urine UA NEGATIVE (NEGATIVE); Leukocyte Esterase Urine UA 2+ (NEGATIVE); Nitrite Urine UA NEGATIVE (Negative); Occult Blood Urine UA NEGATIVE (Negative); Protein Urine UA NEGATIVE (Negative); Urobilinogen Urine UA 0.2 E.U./dL (0.2)
[2024-12-07 14:50] LABS: Bacteria Urine None Seen; Culture Indicated Urine Specimen Cultured; RBC Urine None Seen (0-5/HPF); Squamous Epithelial Cell Urine None Seen (0-5/HPF); Urine Volume 10mL (spun); WBC Urine 10-30/HPF (0-5/HPF); pH Urine UA 5.5 (4.5-8.0)
[2024-12-07 14:52] LABS: Hematocrit 41.6 % (36-46); Hemoglobin 13.8 g/dL (12.0-16.0)
[2024-12-07 15:22] LABS: BUN Creatinine Ratio 23.1 (6-22); Blood Urea Nitrogen 36 mg/dL (7-17); Calcium 9.6 mg/dL (8.4-10.2); Carbon Dioxide 30 mmol/L (22-32); Chloride 99 mmol/L (98-107); Estimated Glomerular Filt Rate 34 mL/min (>60); Glucose 103 mg/dL (70-99); HEMOLYSIS < 15 (0-50); Phosphorous 4.5 mg/dL (2.8-4.1); Potassium 4.8 mmol/L (3.4-5.1); Sodium 139 mmol/L (137-145)
[2024-12-07 15:23] LABS: Creatinine Urine Random 183.17 mg/dL; Protein (Total) Urine Random 11 mg/dL (0-12); Protein Creatinine Ratio Urine 0.06 GRAM/24H
[2024-12-09 07:09] LABS: Parathyroid Hormone Int 138 pg/mL (15-65)
== END ==
PROVIDERS: PCP Internal Medicine; Referring Provider Student in an Organized Health Care Education/Training Program; Visit Provider Student in an Organized Health Care Education/Training Program
DX: N05.9 Unspecified nephritic syndrome with unspecified morphologic changes (principal); D70.9 Neutropenia, unspecified; D63.1 Anemia in chronic kidney disease; E83.30 Disorder of phosphorus metabolism, unspecified; N25.81 Secondary hyperparathyroidism of renal origin; N30.00 Acute cystitis without hematuria; R80.9 Proteinuria, unspecified
CPT/HCPCS: 36415; 80048; 81001; 82570; 83970; 84100; 84156; 85014; 85018; 87086

== ENCOUNTER → 2025-01-22 11:26 | Outpatient (CLI) | payer MEDICARE, SELFPAY ==
[2023-05-08 21:44] VITALS: BMI 35.9
[2025-01-22 12:26] LABS: Hematocrit 39.8 % (36-46); Hemoglobin 13.2 g/dL (12.0-16.0)
[2025-01-22 13:04] LABS: BUN Creatinine Ratio 19.2 (6-22); Blood Urea Nitrogen 20 mg/dL (7-17); Calcium 9.8 mg/dL (8.4-10.2); Carbon Dioxide 28 mmol/L (22-32); Chloride 104 mmol/L (98-107); Estimated Glomerular Filt Rate 55 mL/min (>60); Glucose 92 mg/dL (70-99); HEMOLYSIS < 15 (0-50); Potassium 4.6 mmol/L (3.4-5.1); Sodium 139 mmol/L (137-145)
[2025-01-22 14:01] LABS: Creatinine Urine Random 155.15 mg/dL; Protein (Total) Urine Random 8 mg/dL (0-12); Protein Creatinine Ratio Urine 0.05 GRAM/24H
[2025-01-24 08:08] LABS: Parathyroid Hormone Int 27 pg/mL (15-65)
== END ==
PROVIDERS: PCP Internal Medicine; Referring Provider Student in an Organized Health Care Education/Training Program; Visit Provider Student in an Organized Health Care Education/Training Program
DX: D70.9 Neutropenia, unspecified (principal); D63.1 Anemia in chronic kidney disease; N05.9 Unspecified nephritic syndrome with unspecified morphologic changes; N25.81 Secondary hyperparathyroidism of renal origin; R80.9 Proteinuria, unspecified
CPT/HCPCS: 36415; 80048; 82570; 83970; 84156; 85014; 85018

== ENCOUNTER → 2025-05-27 12:23 | Outpatient (CLI) | payer MEDICARE, SELFPAY ==
[2023-05-08 21:44] VITALS: BMI 35.9
--- NOTE | 2025-05-27 12:27 | DI.RAD.S_ITS ---
PROCEDURE: XR HAND RT MIN 3V INDICATIONS: Pain in right finger(s) TECHNIQUE: 3 views of the hand(s) acquired. COMPARISON: [facility], CR, XR HAND 1 OR 2 VIEWS BILATERAL, 02/12/2024, 15:37. FINDINGS: Bones: No fractures or dislocations. Carpal bones are normally aligned. No suspicious bony lesions. Osteophytosis most pronounced at the interphalangeal joints. Degenerative changes at the 1st CMC joint. Periarticular lucency at the 3rd digit middle phalanx radial aspect. Soft tissues: No suspicious soft tissue calcifications. IMPRESSION: No fracture demonstrated. Suspected small periarticular osseous erosion at the 3rd digit middle phalanx. This could represent an inflammatory arthropathy. Dictated by: Benny De Jesus M.D. on 05/27/2025 at 15:23 Approved by: Benny De Jesus M.D. on 05/27/2025 at 15:27
== END ==
PROVIDERS: PCP Internal Medicine; Referring Provider Internal Medicine; Visit Provider Internal Medicine
DX: M79.644 Pain in right finger(s) (principal)
CPT/HCPCS: 73130

== ENCOUNTER → 2025-06-15 10:21 | Outpatient (CLI) | payer MEDICARE, SELFPAY ==
[2023-05-08 21:44] VITALS: BMI 35.9
[2025-06-15 10:56] LABS: Hematocrit 40.2 % (36-46); Hemoglobin 13.5 g/dL (12.0-16.0)
[2025-06-15 11:28] LABS: Blood Urea Nitrogen 16 mg/dL (7-17); Calcium 9.8 mg/dL (8.4-10.2); Carbon Dioxide 31 mmol/L (22-32); Chloride 103 mmol/L (98-107); Estimated Glomerular Filt Rate > 60 mL/min (>60); Glucose 101 mg/dL (70-99); HEMOLYSIS < 15 (0-50); Potassium 5.0 mmol/L (3.4-5.1); Sodium 139 mmol/L (137-145)
[2025-06-15 11:31] LABS: Protein (Total) Urine Random 7 mg/dL (0-12); Protein Creatinine Ratio Urine 0.09 GRAM/24H
== END ==
PROVIDERS: PCP Internal Medicine; Referring Provider Student in an Organized Health Care Education/Training Program; Visit Provider Student in an Organized Health Care Education/Training Program
DX: N05.9 Unspecified nephritic syndrome with unspecified morphologic changes (principal); D63.1 Anemia in chronic kidney disease; D70.9 Neutropenia, unspecified; N25.81 Secondary hyperparathyroidism of renal origin; R80.9 Proteinuria, unspecified
CPT/HCPCS: 36415; 80048; 82570; 83970; 84156; 85014; 85018